=== PATIENT | male | born 1955 | race African-American/Black ===

== ENCOUNTER 2020-08-28 21:39 | Inpatient (IN) | payer OTHER ==
[~2020-08-28] VITALS: Ht 177.8 cm; Wt 109.6 kg
--- NOTE | 2020-08-28 21:53 | ED.ADGEN ---
General Adult HPI: HPI: Patient is a 64 year old male coming in for [facility] for altered mental status. Per the report he is normally GCS 15 awake and alert. Last time he was seen was at dinner at 1800 where he was acting normally. When staff went to put him to bed about 30 minutes prior to arrival they noticed he was altered and not following commands. Per nursing facility documentation he is on Eliquis for DVTs. He has a history of metabolic encephalopathy, also has hepatitis C virus. No known falls or evidence of trauma. On arrival patient is awake but not following commands, some tracking of gaze. Patient not cooperative with NIH score. Picking his arms appears resistance but no cooperative effort and exam. Code stroke activated on patient's arrival, no acute bleed or stroke CT. Discussed with neurology, Dr. Mccracken, not a TPA candidate secondary to Eliquis. Requesting CTA be done prior to admission Review of Systems: Review of Systems: Unable to obtain due to patient's mental status Current Medications: Current Medications Medications (Trade) Dose Ordered Sig/Mary Start Time Stop Time Status Last Admin Dose Admin Methylprednisolone Sodium Succinate (SOLU-Medrol 125MG VIAL) 125 mg 1X ONCE 08/28/20 23:55 08/29/20 00:12 DC Sodium Chloride 1,000 ml @ 100 mls/hr Q10H 08/28/20 22:15 08/28/20 23:04 100 MLS/HR Allergies: Allergies: Allergies Coded Allergies Type Severity Reaction Last Updated Verified Penicillins Allergy Unknown UNKNOWN 08/28/20 Yes hydrocodone Allergy Unknown UNKNOWN 08/28/20 Yes Physical Exam: PE: Constitutional: Well developed, well nourished, attentive. [] HENT: Normocephalic, atraumatic, bilateral external ears normal, nose normal. [] Eyes: PERRLA, pupils 3 mm conjunctiva normal, no discharge. [] Neck: No rigidity, supple, no stridor. [] Cardiovascular: Regular rate and rhythm, brisk cap refill [] Lungs & Thorax: Non labored symmetric respirations, no tachypnea or respiratory distress [] Abdomen: Soft, nondistended. Skin: Warm, dry, no erythema, no rash. [] Extremities: No deformities, no effort for range of motion, no lower extremity edema [] Neurologic: Alert, nonverbal. [] Current Patient Data: Labs: Laboratory Tests Test 08/28/20 21:47 08/28/20 21:54 08/29/20 00:02 08/29/20 01:13 Glucose (Fingerstick) 130 mg/dL (70-99) H White Blood Count 10.4 x10^3/uL (4.0-11.0) Red Blood Count 4.68 x10^6/uL (4.30-5.70) Hemoglobin 15.9 g/dL (13.0-17.5) Hematocrit 46.0 % (39.0-53.0) Mean Corpuscular Volume 98 fL (79-100) Mean Corpuscular Hemoglobin 34 pg (25-35) Mean Corpuscular Hemoglobin Concent 35 g/dL (31-37) Red Cell Distribution Width 15.3 % (11.5-14.5) H Platelet Count 244 x10^3/uL (140-400) Neutrophils (%) (Auto) 84 % (31-73) H Lymphocytes (%) (Auto) 8 % (24-48) L Monocytes (%) (Auto) 8 % (0-9) Eosinophils (%) (Auto) 0 % (0-3) Basophils (%) (Auto) 1 % (0-3) Neutrophils # (Auto) 8.7 x10^3/uL (1.8-7.7) H Lymphocytes # (Auto) 0.8 x10^3/uL (1.0-4.8) L Monocytes # (Auto) 0.8 x10^3/uL (0.0-1.1) Eosinophils # (Auto) 0.0 x10^3/uL (0.0-0.7) Basophils # (Auto) 0.0 x10^3/uL (0.0-0.2) Prothrombin Time 16.1 SEC (11.7-14.0) H Prothrombin Time INR 1.3 (0.8-1.1) H Activated Partial Thromboplast Time 28 SEC (24-38) Sodium Level 151 mmol/L (136-145) H Potassium Level 3.9 mmol/L (3.5-5.1) Chloride Level 112 mmol/L (98-107) H Carbon Dioxide Level 25 mmol/L (21-32) Anion Gap 14 (6-14) Blood Urea Nitrogen 36 mg/dL (8-26) H Creatinine 3.4 mg/dL (0.7-1.3) H Estimated GFR (Cockcroft-Gault) 22.0 Glucose Level 135 mg/dL (70-99) H Calcium Level 10.1 mg/dL (8.5-10.1) Troponin I Quantitative < 0.017 ng/mL (0.000-0.055) Thyroid Stimulating Hormone (TSH) 2.640 uIU/mL (0.358-3.74) O2 Saturation 96 % (92-99) Arterial Blood pH 7.39 (7.35-7.45) Arterial Blood pCO2 at Patient Temp 34 mmHg (35-46) L Arterial Blood pO2 at Patient Temp 81 mmHg (65-108) Arterial Blood HCO3 20 mmol/L (21-28) L Arterial Blood Base Excess -4 mmol/L (-3-3) L FiO2 21 Ammonia < 10 mcmol/L (11-34) L Laboratory Tests 08/28/20 21:54 Laboratory Tests 08/28/20 21:54 Vital Signs: Vital Signs Date Time Temp Pulse Resp B/P (MAP) Pulse Ox O2 Delivery O2 Flow Rate FiO2 08/29/20 02:00 86 20 126/65 (85) 100 Room Air 08/28/20 21:46 97.9 97.9 EKG: EKG: Sinus rhythm, mildly prolonged QT, no ST elevation or depression, no ectopy, normal axis. [] Heart Score: Risk Factors: Risk Factors: DM, Current or recent (<one month) smoker, HTN, HLP, family history of CAD, obesity. Risk Scores: Score 0 - 3: 2.5% MACE over next 6 weeks - Discharge Home Score 4 - 6: 20.3% MACE over next 6 weeks - Admit for Clinical Observation Score 7 - 10: 72.7% MACE over next 6 weeks - Early Invasive Strategies Radiology/Procedures: Radiology/Procedures: EXAM: AP View of the chest DATE: 08/28/2020 10:29 PM INDICATION: Reason: ams / Spl. Instructions: / History: COMPARISON: No Prior FINDINGS: The heart is not enlarged. Mediastinal and hilar contours are normal. Linear opacities right lung base likely scarring/atelectasis. Patchy opacities left lung base may represent developing consolidative process. No pleural effusion or pneumothorax. IMPRESSION: Patchy opacities left lung base may represent consolidative process such as pneumonia. CT STROKE HEAD W/O History: Reason: stroke / Spl. Instructions: / History: Comparison: None. Technique: Noncontrast CT imaging was performed of the head. Exposure: One or more of the following individualized dose reduction techniques were utilized for this examination: 1. Automated exposure control 2. Adjustment of the mA and/or kV according to patient size 3. Use of iterative reconstruction technique. Findings: No intracranial hemorrhage. No mass effect. Hypoattenuation within the bilateral thalami. Mild brain parenchymal volume loss. Extensive foci of decreased attenuation within the hemispheric white matter, most often due to chronic microvascular ischemia. Intracranial atheromatous calcifications. Mildly dilated lateral and third ventricles. No findings to suggest obstructive hydrocephalus. Imaged orbits are unremarkable. Imaged paranasal sinuses and mastoid air cells are clear. No acute calvarial fracture. Impression: 1. No acute intracranial hemorrhage. 2. Bilateral thalamic age-indeterminate infarcts. Recommend MRI to further evaluate. 3. Extensive sequelae of chronic microvascular ischemia. 4. Mildly dilated lateral third ventricles, may relate to central brain parenchymal volume loss although can be seen with normal pressure hydrocephalus in the appropriate clinical setting. [] Course & Med Decision Making: Course & Med Decision Making Pertinent Labs and Imaging studies reviewed. (See chart for details) [] Dragon Disclaimer: Cory Disclaimer: This electronic medical record was generated, in whole or in part, using a voice recognition dictation system. Departure Departure Impression: Primary Impression: AMS (altered mental status) Additional Impression: HCAP (healthcare-associated pneumonia) Disposition: 09 ADMITTED INPT THIS HOSP Admitting Physician: MUKESH Condition: GUARDED Problem Qualifiers BONNY CARMICHAEL MD Aug 28, 2020 21:53
--- NOTE | 2020-08-28 22:00 | RAD ---
CT STROKE HEAD W/O History: Reason: stroke / Spl. Instructions: / History: Comparison: None. Technique: Noncontrast CT imaging was performed of the head. Exposure: One or more of the following individualized dose reduction techniques were utilized for thi s examination: 1. Automated exposure control 2. Adjustment of the mA and/or kV according to patient size 3. Use of iterative reconstruction technique. Findings: No intracranial hemorrhage. No mass effect. Hypoattenuation within the bilateral thalami. Mild brain parenchymal volume loss. Extensive foci of decreased attenuation within the hemispheric wh ite matter, most often due to chronic microvascular ischemia. Intracranial atheromatous calcification s. Mildly dilated lateral and third ventricles. No findings to suggest obstructive hydrocephalus. Imaged orbits are unremarkable. Imaged paranasal sinuses and mastoid air cells are clear. No acute ca lvarial fracture. Impression: 1. No acute intracranial hemorrhage. 2. Bilateral thalamic age-indeterminate infarcts. Recommend MRI to further evaluate. 3. Extensive sequelae of chronic microvascular ischemia. 4. Mildly dilated lateral third ventricles, may relate to central brain parenchymal volume loss alth ough can be seen with normal pressure hydrocephalus in the appropriate clinical setting. FOR INTERNAL CODING PURPOSES Critical result: Findings discussed with Dr. Zhou at 08/28/2020 9:56 PM. RESULT CODE: (C) Electronically signed by: Shaq Arcos DO (08/28/2020 9:57 PM) [facility] [place]
[2020-08-28 22:18] LABS: BASO % 1 % (0-3); EOS % 0 % (0-3); HEMOGLOBIN 15.9 g/dL (13.0-17.5); LYMPH # 0.8 x10^3/uL (1.0-4.8); LYMPH % 8 % (24-48); MEAN CORPUSCULAR HEMOGLOBIN 34 pg (25-35); MEAN CORPUSCULAR HGB CONC 35 g/dL (31-37); MEAN CORPUSCULAR VOLUME 98 fL (79-100); MONO # 0.8 x10^3/uL (0.0-1.1); MONO % 8 % (0-9); NEUT # 8.7 x10^3/uL (1.8-7.7); NEUT % 84 % (31-73); PLATELET COUNT 244 x10^3/uL (140-400); RED BLOOD COUNT 4.68 x10^6/uL (4.30-5.70); RED CELL DISTRIBUTION WIDTH 15.3 % (11.5-14.5); WHITE BLOOD COUNT 10.4 x10^3/uL (4.0-11.0)
[2020-08-28 22:28] LABS: PROTHROMBIN TIME PATIENT 16.1 SEC (11.7-14.0)
[2020-08-28 22:32] LABS: CALCIUM 10.1 mg/dL (8.5-10.1); CREATININE 3.4 mg/dL (0.7-1.3); POTASSIUM 3.9 mmol/L (3.5-5.1)
[2020-08-28] MEDS: IV NORMAL SALINE 1000ML BAG 1,000 ML IV SCH (23:04)
--- NOTE | 2020-08-28 23:36 | RAD ---
EXAM: AP View of the chest DATE: 08/28/2020 10:29 PM INDICATION: Reason: ams / Spl. Instructions: / History: COMPARISON: No Prior FINDINGS: The heart is not enlarged. Mediastinal and hilar contours are normal. Linear opacities right lung base likely scarring/atelectasis. Patchy opacities left lung base may rep resent developing consolidative process. No pleural effusion or pneumothorax. IMPRESSION: Patchy opacities left lung base may represent consolidative process such as pneumonia. Electronically signed by: Gregorio Hector MD (08/28/2020 11:34 PM) KEVIN
[2020-08-28] MEDS ORDERED: methylPREDNISolone SOD SUCC PF 125 MG/2 ML VIAL. IV ONE (23:55)
[2020-08-29 00:22] LABS: BASE EXCESS ABG -4 mmol/L (-3-3); HCO3 ABG 20 mmol/L (21-28); PCO2 ABG 34 mmHg (35-46); PO2 ABG 81 mmHg (65-108); SAT O2 ABG 96 % (92-99)
[2020-08-29 00:29] LABS: FIO2 ABG 21
[2020-08-29] MEDS ORDERED: VANCOMYCIN 1.75 GM in IV NORMAL SALINE 500ML BAG 500 ML IV ONE (02:30)
[2020-08-29] MEDS ORDERED: CEFEPIME HCL IV Push 1 GM VIAL. IVP ONE (02:30)
--- NOTE | 2020-08-29 04:04 | EKG ---
[facility] [address] [place] [address] Test Date: 2020-08-28 Test Time: 21:50:53 Pat Name: DARREN KENT Department: Room: Gender: M Sample Coordinator: : 1955 Requested By: BONNY CARMICHAEL Order Number: [id number] Reading MD: Measurements Intervals [place] Rate: 96 P: 28 FL: 186 QRS: 75 QRSD: 112 T: 66 QT: 390 QTc: 494 Interpretive Statements SINUS RHYTHM PROLONGED QT NO SPECIFIC ECG ABNORMALITIES RI6.01 No previous ECG available for comparison
[2020-08-29 05:05] VITALS: BP 101/70
[2020-08-29 07:00] VITALS: BP 119/80
[2020-08-29] MEDS ORDERED: DARU1TAB3 PO (07:38)
[2020-08-29] MEDS ORDERED: TRAM50TA PO (07:38)
[2020-08-29] MEDS ORDERED: TELM40TA PO (07:38)
[2020-08-29] MEDS ORDERED: DOLU50TA PO (07:38)
[2020-08-29] MEDS ORDERED: COLC0.6T34 PO (07:38)
[2020-08-29] MEDS ORDERED: AMLO-187 PO (07:38)
[2020-08-29] MEDS ORDERED: TAMS0.4C97 PO (07:38)
[2020-08-29] MEDS ORDERED: BETA15CR5 TP (07:38)
[2020-08-29] MEDS ORDERED: MULT-246 PO (07:38)
[2020-08-29] MEDS ORDERED: APIX2.5T PO (07:38)
--- NOTE | 2020-08-29 08:54 | PDOC2 ---
NEUROLOGY CONSULT Date of Service DOS: DATE: 08/29/20 TIME: 08:38 Reason for Consult Reason for Consult: Altered mental status Referring Physician Referring Physician: Dr. Li Source Source: Caregiver (Dr. Olson, friend), Chart review History of Present Illness History of Present Illness The patient is a 64-year-old right-handed male admitted from long-term with altered mental status. Last known normal was 6 PM, but bu the time I spoke to Dr. Zhou, emergency room physician, last night it was 10 PM and there were no focal findings, therefore we did not consider the patient a candidate for alteplase. According to his friend, Dr. 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 He was admitted to because of declining mental status. He is HIV posit susana. Patient had several MRI studies, 2 lumbar punctures, and full evaluation including syphilis serologies, which were negative. Nonetheless, he was treated with antibiotics for syphilis and other infections, but nothing came with the work-up except for possible ventriculomegaly. A BINDING CUTTER shunt was discussed, but the doctors did not think that normal pressure hydrocephalus was an issue. Patient has never had a stroke or seizure. We are not sure if he hit his head in the fall. Past Medical History Cardiovascular: HTN, Other (DVT) CENTRAL NERVOUS SYSTEM: Other (met enceph) Hepatobiliary: Hep A/B/C (C) Psych: Other (thrombocythemia) Rheumatologic: Gout Infectious disease: HIV Renal/: Urinary Incontinence Current Medications Current Medications Current Medications Sodium Chloride 1,000 ml @ 100 mls/hr Q10H IV Last administered on 08/28/20at 23:04; Start 08/28/20 at 22:15 Methylprednisolone Sodium Succinate (SOLU-Medrol 125MG VIAL) 125 mg 1X ONCE IV ; Start 08/28/20 at 23:55; Stop 08/29/20 at 00:12; Status DC Cefepime HCl (Maxipime) 1 gm 1X ONCE IVP Last administered on 08/29/20at 02:45; Start 08/29/20 at 02:30; Stop 08/29/20 at 02:32; Status DC Vancomycin HCl 1.75 gm/Sodium Chloride 500 ml @ 250 mls/hr 1X ONCE IV Last administered on 08/29/20at 02:48; Start 08/29/20 at 02:30; Stop 08/29/20 at 04:29; Status DC Active Scripts Active Reported Multi-Vitamin Daily (Multivitamin) 1 Each Tablet 1 Tab PO DAILY 30 Days Tramadol Hcl 50 Mg Tablet 50 Mg PO Q6HRS PRN Tivicay (Dolutegravir Sodium) 50 Mg Tablet 1 Tab PO DAILY 30 Days Micardis (Telmisartan) 40 Mg Tablet 1 Tab PO DAILY Flomax (Tamsulosin Hcl) 0.4 Mg Cap.er.24h 1 Cap PO DAILY Symtuza [id number] mg Tab (Darunavir/Cob/Emtri/Tenof Alaf) 1 Each Tablet 1 Each PO DAILY Colcrys (Colchicine) 0.6 Mg Tablet 1 Tab PO DAILY 30 Days Betamethasone Dipropionate 15 Gm Cream..g. 1 Antoine TP BID Eliquis (Apixaban) 2.5 Mg Tablet 2.5 Mg PO BID Amlodipine Besylate 10 Mg Tablet 10 Mg PO DAILY Allergies Allergies: Coded Allergies: Penicillins (Verified Allergy, Unknown, UNKNOWN, 08/28/20) hydrocodone (Verified Allergy, Unknown, UNKNOWN, 08/28/20) ROS Review of System Negative for fever, chills, weight loss, shortness of breath, chest pain, indige stion, hematochezia, melena, and dysuria. Full 14-point review of systems is negative. Physical Exam Physical Examination General: Well-developed, well-nourished black male in no acute distress HEENT: Normocephalic andatraumatic. Temporal arteriespulsatile and nontender. Neck: Supple without bruit, no meningismus Musculoskeletal: Stability:see neurologic. Gait exam:see neurologic. Tone:see neurologic.Strength:see neurologic. Neurological: Mental Status:Eyes open slightly to voice, nonverbal, doesn't follow commands. Cranial Nerves:Pupils equal and reactive to light, extraocular movements areintact, visual hough are full to confrontation. Facial sensation is normal. There is no facial asymmetry. Vestibulo-ocular reflex is intact. Palate elevates and tongue protrudes in midline. All other cranial related problems are negative except as mentioned before.Reflexes:2+ and symmetric with flexor plantar responses. Motor:moves all extremities, normal tone and bulk. Coordination and gait:Not cooperative. Sensory:not cooperative. Vitals VITALS Vital Signs Date Time Temp Pulse Resp B/P (MAP) Pulse Ox O2 Delivery O2 Flow Rate FiO2 08/29/20 07:00 97.2 80 16 119/80 (93) 97 Room Air 97.2 Labs Labs Laboratory Tests Test 08/28/20 21:47 08/28/20 21:54 08/29/20 00:02 08/29/20 01:13 Glucose (Fingerstick) 130 mg/dL (70-99) White Blood Count 10.4 x10^3/uL (4.0-11.0) Red Blood Count 4.68 x10^6/uL (4.30-5.70) Hemoglobin 15.9 g/dL (13.0-17.5) Hematocrit 46.0 % (39.0-53.0) Mean Corpuscular Volume 98 fL (79-100) Mean Corpuscular Hemoglobin 34 pg (25-35) Mean Corpuscular Hemoglobin Concent 35 g/dL (31-37) Red Cell Distribution Width 15.3 % (11.5-14.5) Platelet Count 244 x10^3/uL (140-400) Neutrophils (%) (Auto) 84 % (31-73) Lymphocytes (%) (Auto) 8 % (24-48) Monocytes (%) (Auto) 8 % (0-9) Eosinophils (%) (Auto) 0 % (0-3) Basophils (%) (Auto) 1 % (0-3) Neutrophils # (Auto) 8.7 x10^3/uL (1.8-7.7) Lymphocytes # (Auto) 0.8 x10^3/uL (1.0-4.8) Monocytes # (Auto) 0.8 x10^3/uL (0.0-1.1) Eosinophils # (Auto) 0.0 x10^3/uL (0.0-0.7) Basophils # (Auto) 0.0 x10^3/uL (0.0-0.2) Prothrombin Time 16.1 SEC (11.7-14.0) Prothromb Time International Ratio 1.3 (0.8-1.1) Activated Partial Thromboplast Time 28 SEC (24-38) Sodium Level 151 mmol/L (136-145) Potassium Level 3.9 mmol/L (3.5-5.1) Chloride Level 112 mmol/L (98-107) Carbon Dioxide Level 25 mmol/L (21-32) Anion Gap 14 (6-14) Blood Urea Nitrogen 36 mg/dL (8-26) Creatinine 3.4 mg/dL (0.7-1.3) Estimated GFR (Cockcroft-Gault) 22.0 Glucose Level 135 mg/dL (70-99) Calcium Level 10.1 mg/dL (8.5-10.1) Troponin I Quantitative < 0.017 ng/mL (0.000-0.055) Thyroid Stimulating Hormone (TSH) 2.640 uIU/mL (0.358-3.74) O2 Saturation 96 % (92-99) Arterial Blood pH 7.39 (7.35-7.45) Arterial Blood pCO2 at Patient Temp 34 mmHg (35-46) Arterial Blood pO2 at Patient Temp 81 mmHg (65-108) Arterial Blood HCO3 20 mmol/L (21-28) Arterial Blood Base Excess -4 mmol/L (-3-3) FiO2 21 Ammonia < 10 mcmol/L (11-34) Laboratory Tests Test 08/28/20 21:47 08/28/20 21:54 08/29/20 00:02 08/29/20 01:13 Glucose (Fingerstick) 130 mg/dL (70-99) White Blood Count 10.4 x10^3/uL (4.0-11.0) Red Blood Count 4.68 x10^6/uL (4.30-5.70) Hemoglobin 15.9 g/dL (13.0-17.5) Hematocrit 46.0 % (39.0-53.0) Mean Corpuscular Volume 98 fL (79-100) Mean Corpuscular Hemoglobin 34 pg (25-35) Mean Corpuscular Hemoglobin Concent 35 g/dL (31-37) Red Cell Distribution Width 15.3 % (11.5-14.5) Platelet Count 244 x10^3/uL (140-400) Neutrophils (%) (Auto) 84 % (31-73) Lymphocytes (%) (Auto) 8 % (24-48) Monocytes (%) (Auto) 8 % (0-9) Eosinophils (%) (Auto) 0 % (0-3) Basophils (%) (Auto) 1 % (0-3) Neutrophils # (Auto) 8.7 x10^3/uL (1.8-7.7) Lymphocytes # (Auto) 0.8 x10^3/uL (1.0-4.8) Monocytes # (Auto) 0.8 x10^3/uL (0.0-1.1) Eosinophils # (Auto) 0.0 x10^3/uL (0.0-0.7) Basophils # (Auto) 0.0 x10^3/uL (0.0-0.2) Prothrombin Time 16.1 SEC (11.7-14.0) Prothromb Time International Ratio 1.3 (0.8-1.1) Activated Partial Thromboplast Time 28 SEC (24-38) Sodium Level 151 mmol/L (136-145) Potassium Level 3.9 mmol/L (3.5-5.1) Chloride Level 112 mmol/L (98-107) Carbon Dioxide Level 25 mmol/L (21-32) Anion Gap 14 (6-14) Blood Urea Nitrogen 36 mg/dL (8-26) Creatinine 3.4 mg/dL (0.7-1.3) Estimated GFR (Cockcroft-Gault) 22.0 Glucose Level 135 mg/dL (70-99) Calcium Level 10.1 mg/dL (8.5-10.1) Troponin I Quantitative < 0.017 ng/mL (0.000-0.055) Thyroid Stimulating Hormone (TSH) 2.640 uIU/mL (0.358-3.74) O2 Saturation 96 % (92-99) Arterial Blood pH 7.39 (7.35-7.45) Arterial Blood pCO2 at Patient Temp 34 mmHg (35-46) Arterial Blood pO2 at Patient Temp 81 mmHg (65-108) Arterial Blood HCO3 20 mmol/L (21-28) Arterial Blood Base Excess -4 mmol/L (-3-3) FiO2 21 Ammonia < 10 mcmol/L (11-34) Images Images CT STROKE HEAD W/O History: Reason: stroke / Spl. Instructions: / History: Comparison: None. Technique: Noncontrast CT imaging was performed of the head. Exposure: One or more of the following individualized dose reduction techniques were utilized for this examination: 1. Automated exposure control 2. Adjustment of the mA and/or kV according to patient size 3. Use of iterative reconstruction technique. Findings: No intracranial hemorrhage. No mass effect. Hypoattenuation within the bilateral thalami. Mild brain parenchymal volume loss. Extensive foci of decreased attenuation within the hemispheric white matter, most often due to chronic microvascular ischemia. Intracranial atheromatous calcifications. Mildly dilated lateral and third ventricles. No findings to suggest obstructive hydrocephalus. Imaged orbits are unremarkable. Imaged paranasal sinuses and mastoid air cells are clear. No acute calvarial fracture. Impression: 1. No acute intracranial hemorrhage. 2. Bilateral thalamic age-indeterminate infarcts. Recommend MRI to further evaluate. 3. Extensive sequelae of chronic microvascular ischemia. 4. Mildly dilated lateral third ventricles, may relate to central brain parenchymal volume loss although can be seen with normal pressure hydrocephalus in the appropriate clinical setting. 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 Note elevated creatinine Recommendations: MRI of the brain Electroencephalogram Nephrology consult I will look over the [facility] work-up on-line with verbal permission from Dr. Miranda Thank you for letting me help with the patient's care. JOSE CARLOS JOHNSON MD Aug 29, 2020 08:54
--- NOTE | 2020-08-29 09:01 | PDOC1 ---
History and Physical Date of Admission Date of Admission DATE: 08/29/20 TIME: 08:57 Identification/Chief Complaint Chief Complaint AMS, CODE STROKE IN ER History of Present Illness History of Present Illness seen in er with AMS, 64 year old male coming in for senior care for altered mental status. Per the report he is normally GCS 15 awake and alert. Last time he was seen was at dinner at 1800 where he was acting normally. When staff went to put him to bed about 30 minutes prior to arrival they noticed he was altered and not following commands. Per nursing facility documentation he is on Eliquis for DVTs. He has a history of metabolic encephalopathy, also has hepatitis C virus. No known falls or evidence of trauma. On arrival patient is awake but not following commands, some tracking of gaze. Patient not cooperative with NIH score. Picking his arms appears resistance but no cooperative effort and exam. cr elevated at 3 Code stroke activated on patient's arrival, no acute bleed or stroke CT. Discussed with neurology, Dr. Mccracken, not a TPA candidate secondary to Eliquis. Requesting CTA be done prior to admission HIV positive. Patient had several MRI studies, 2 lumbar punctures, and full evaluation including syphilis serologies, which were negative. at [facility] he was treated with antibiotics for syphilis and other infections, but nothing came with the work-up except for possible ventriculomegaly. A SWIMMING COACH shunt was discussed, but the doctors did not think that normal pressure hydrocephalus was an issue. Review of Systems: Review of Systems: Unable to obtain due to patient's mental status Past Medical History Cardiovascular: HTN, Hyperlipidemia, Other (DVT) CENTRAL NERVOUS SYSTEM: Other (met enceph) Hepatobiliary: Hep A/B/C (C) Psych: Depression, Other (thrombocythemia) Rheumatologic: Gout Infectious disease: HIV Renal/: Urinary Incontinence Family History Family History: Hypertension Social History Smoke: No ALCOHOL: none Drugs: None Current Problem List Problem List Problems Medical Problems: (1) AMS (altered mental status) Status: Acute (2) HCAP (healthcare-associated pneumonia) Status: Acute Current Medications Current Medications Current Medications Sodium Chloride 1,000 ml @ 100 mls/hr Q10H IV Last administered on 08/28/20at 23:04; Start 08/28/20 at 22:15 Methylprednisolone Sodium Succinate (SOLU-Medrol 125MG VIAL) 125 mg 1X ONCE IV ; Start 08/28/20 at 23:55; Stop 08/29/20 at 00:12; Status DC Cefepime HCl (Maxipime) 1 gm 1X ONCE IVP Last administered on 08/29/20at 02:45; Start 08/29/20 at 02:30; Stop 08/29/20 at 02:32; Status DC Vancomycin HCl 1.75 gm/Sodium Chloride 500 ml @ 250 mls/hr 1X ONCE IV Last administered on 08/29/20at 02:48; Start 08/29/20 at 02:30; Stop 08/29/20 at 04:29; Status DC Active Scripts Active Reported Multi-Vitamin Daily (Multivitamin) 1 Each Tablet 1 Tab PO DAILY 30 Days Tramadol Hcl 50 Mg Tablet 50 Mg PO Q6HRS PRN Tivicay (Dolutegravir Sodium) 50 Mg Tablet 1 Tab PO DAILY 30 Days Micardis (Telmisartan) 40 Mg Tablet 1 Tab PO DAILY Flomax (Tamsulosin Hcl) 0.4 Mg Cap.er.24h 1 Cap PO DAILY Symtuza [id number] mg Tab (Darunavir/Cob/Emtri/Tenof Alaf) 1 Each Tablet 1 Each PO DAILY Colcrys (Colchicine) 0.6 Mg Tablet 1 Tab PO DAILY 30 Days Betamethasone Dipropionate 15 Gm Cream..g. 1 Antoine TP BID Eliquis (Apixaban) 2.5 Mg Tablet 2.5 Mg PO BID Amlodipine Besylate 10 Mg Tablet 10 Mg PO DAILY Allergies Allergies: Coded Allergies: Penicillins (Verified Allergy, Unknown, UNKNOWN, 08/28/20) hydrocodone (Verified Allergy, Unknown, UNKNOWN, 08/28/20) ROS Review of System unable to participate Hematological and Lymphatic: No: Bleeding Problems, Blood Clots, Blood Transfusions, Brusing, Night Sweats, Pallor, Swollen Lymph Nodes, Other Respiratory: YES: Shortness of breath Gastrointestinal: No Nausea, No Vomiting, No Abdominal Pain, No Diarrhea, No Constipation, No Melena, No Hematochezia, No Other Neurological: Yes Confusion Physical Exam Physical Exam HENT: Normocephalic, atraumatic, bilateral external ears normal, nose normal. [] Eyes: PERRLA, pupils 3 mm conjunctiva normal, no discharge. [] Neck: No rigidity, supple, no stridor. [] Cardiovascular: Regular rate and rhythm, brisk cap refill [] Lungs & Thorax: Non labored symmetric respirations, no tachypnea or respiratory distress [] Abdomen: Soft, nondistended. Skin: Warm, dry, no erythema, no rash. [] Extremities: No deformities, no effort for range of motion, no lower extremity edema [] Neurologic: Alert, nonverbal. [] General: Cooperative, No acute distress HEENT: Atraumatic Lungs: Normal air movement Breasts: Not examined Abdomen: Soft Rectal Exam: not examined Extremities: No cyanosis Vitals Vitals Vital Signs Date Time Temp Pulse Resp B/P (MAP) Pulse Ox O2 Delivery O2 Flow Rate FiO2 08/29/20 07:00 97.2 80 16 119/80 (93) 97 Room Air 97.2 Labs Labs Laboratory Tests Test 08/28/20 21:47 08/28/20 21:54 08/29/20 00:02 08/29/20 01:13 Glucose (Fingerstick) 130 mg/dL (70-99) White Blood Count 10.4 x10^3/uL (4.0-11.0) Red Blood Count 4.68 x10^6/uL (4.30-5.70) Hemoglobin 15.9 g/dL (13.0-17.5) Hematocrit 46.0 % (39.0-53.0) Mean Corpuscular Volume 98 fL (79-100) Mean Corpuscular Hemoglobin 34 pg (25-35) Mean Corpuscular Hemoglobin Concent 35 g/dL (31-37) Red Cell Distribution Width 15.3 % (11.5-14.5) Platelet Count 244 x10^3/uL (140-400) Neutrophils (%) (Auto) 84 % (31-73) Lymphocytes (%) (Auto) 8 % (24-48) Monocytes (%) (Auto) 8 % (0-9) Eosinophils (%) (Auto) 0 % (0-3) Basophils (%) (Auto) 1 % (0-3) Neutrophils # (Auto) 8.7 x10^3/uL (1.8-7.7) Lymphocytes # (Auto) 0.8 x10^3/uL (1.0-4.8) Monocytes # (Auto) 0.8 x10^3/uL (0.0-1.1) Eosinophils # (Auto) 0.0 x10^3/uL (0.0-0.7) Basophils # (Auto) 0.0 x10^3/uL (0.0-0.2) Prothrombin Time 16.1 SEC (11.7-14.0) Prothromb Time International Ratio 1.3 (0.8-1.1) Activated Partial Thromboplast Time 28 SEC (24-38) Sodium Level 151 mmol/L (136-145) Potassium Level 3.9 mmol/L (3.5-5.1) Chloride Level 112 mmol/L (98-107) Carbon Dioxide Level 25 mmol/L (21-32) Anion Gap 14 (6-14) Blood Urea Nitrogen 36 mg/dL (8-26) Creatinine 3.4 mg/dL (0.7-1.3) Estimated GFR (Cockcroft-Gault) 22.0 Glucose Level 135 mg/dL (70-99) Calcium Level 10.1 mg/dL (8.5-10.1) Troponin I Quantitative < 0.017 ng/mL (0.000-0.055) Thyroid Stimulating Hormone (TSH) 2.640 uIU/mL (0.358-3.74) O2 Saturation 96 % (92-99) Arterial Blood pH 7.39 (7.35-7.45) Arterial Blood pCO2 at Patient Temp 34 mmHg (35-46) Arterial Blood pO2 at Patient Temp 81 mmHg (65-108) Arterial Blood HCO3 20 mmol/L (21-28) Arterial Blood Base Excess -4 mmol/L (-3-3) FiO2 21 Ammonia < 10 mcmol/L (11-34) Laboratory Tests Test 08/28/20 21:47 08/28/20 21:54 08/29/20 00:02 08/29/20 01:13 Glucose (Fingerstick) 130 mg/dL (70-99) White Blood Count 10.4 x10^3/uL (4.0-11.0) Red Blood Count 4.68 x10^6/uL (4.30-5.70) Hemoglobin 15.9 g/dL (13.0-17.5) Hematocrit 46.0 % (39.0-53.0) Mean Corpuscular Volume 98 fL (79-100) Mean Corpuscular Hemoglobin 34 pg (25-35) Mean Corpuscular Hemoglobin Concent 35 g/dL (31-37) Red Cell Distribution Width 15.3 % (11.5-14.5) Platelet Count 244 x10^3/uL (140-400) Neutrophils (%) (Auto) 84 % (31-73) Lymphocytes (%) (Auto) 8 % (24-48) Monocytes (%) (Auto) 8 % (0-9) Eosinophils (%) (Auto) 0 % (0-3) Basophils (%) (Auto) 1 % (0-3) Neutrophils # (Auto) 8.7 x10^3/uL (1.8-7.7) Lymphocytes # (Auto) 0.8 x10^3/uL (1.0-4.8) Monocytes # (Auto) 0.8 x10^3/uL (0.0-1.1) Eosinophils # (Auto) 0.0 x10^3/uL (0.0-0.7) Basophils # (Auto) 0.0 x10^3/uL (0.0-0.2) Prothrombin Time 16.1 SEC (11.7-14.0) Prothromb Time International Ratio 1.3 (0.8-1.1) Activated Partial Thromboplast Time 28 SEC (24-38) Sodium Level 151 mmol/L (136-145) Potassium Level 3.9 mmol/L (3.5-5.1) Chloride Level 112 mmol/L (98-107) Carbon Dioxide Level 25 mmol/L (21-32) Anion Gap 14 (6-14) Blood Urea Nitrogen 36 mg/dL (8-26) Creatinine 3.4 mg/dL (0.7-1.3) Estimated GFR (Cockcroft-Gault) 22.0 Glucose Level 135 mg/dL (70-99) Calcium Level 10.1 mg/dL (8.5-10.1) Troponin I Quantitative < 0.017 ng/mL (0.000-0.055) Thyroid Stimulating Hormone (TSH) 2.640 uIU/mL (0.358-3.74) O2 Saturation 96 % (92-99) Arterial Blood pH 7.39 (7.35-7.45) Arterial Blood pCO2 at Patient Temp 34 mmHg (35-46) Arterial Blood pO2 at Patient Temp 81 mmHg (65-108) Arterial Blood HCO3 20 mmol/L (21-28) Arterial Blood Base Excess -4 mmol/L (-3-3) FiO2 21 Ammonia < 10 mcmol/L (11-34) Images Images Signed PATIENT: DARREN KENT ACCOUNT: [id number] : 1955 LOCATION: ER AGE: 64 SEX: M EXAM STATUS: PRE ER ORD. PHYSICIAN: BONNY CARMICHAEL MD REASON: stroke PROCEDURE: CT CODE STROKE HEAD WO CT STROKE HEAD W/O History: Reason: stroke / Spl. Instructions: / History: Comparison: None. Technique: Noncontrast CT imaging was performed of the head. Exposure: One or more of the following individualized dose reduction techniques were utilized for this examination: 1. Automated exposure control 2. Adjustment of the mA and/or kV according to patient size 3. Use of iterative reconstruction technique. Findings: No intracranial hemorrhage. No mass effect. Hypoattenuation within the bilateral thalami. Mild brain parenchymal volume loss. Extensive foci of decreased attenuation within the hemispheric white matter, most often due to chronic microvascular ischemia. Intracranial atheromatous calcifications. Mildly dilated lateral and third ventricles. No findings to suggest obstructive hydrocephalus. Imaged orbits are unremarkable. Imaged paranasal sinuses and mastoid air cells are clear. No acute calvarial fracture. Impression: 1. No acute intracranial hemorrhage. 2. Bilateral thalamic age-indeterminate infarcts. Recommend MRI to further evaluate. 3. Extensive sequelae of chronic microvascular ischemia. 4. Mildly dilated lateral third ventricles, may relate to central brain parenchymal volume loss although can be seen with normal pressure hydrocephalus in the appropriate clinical setting. FOR INTERNAL CODING PURPOSES Critical result: Findings discussed with Dr. Carmichael at 08/28/2020 9:56 PM. RESULT CODE: (C) Electronically signed by: Shaq Arcos DO (08/28/2020 9:57 PM) [facility] VTE Prophylaxis Ordered VTE Prophylaxis Devices: Yes VTE Pharmacological Prophylaxi: Yes Assessment/Plan Assessment/Plan Impression: 1. No acute intracranial hemorrhage. 2. Bilateral thalamic age-indeterminate infarcts. PLAN MRI to further evaluate. 3. Extensive sequelae of chronic microvascular ischemia. 4. Mildly dilated lateral third ventricles, may relate to central brain parenchymal volume loss POSSIBLE normal pressure hydrocephalus 5. Patchy opacities left lung base may represent consolidative process such as pneumonia., aspiration risk 6. WANG PLAN ADMIT MRI HEAD NEUROLOGY CONSULT emperic iv antibiotics dvt prophylaxis NEPHROLOGY CONSULT 75 min pt exam, chart review, > 50% of time spent with exam, chart review, pt care coordination Justifications for Admission Other Justification EEV DOWNEY MD Aug 29, 2020 09:01
[2020-08-29] MEDS: IV NORMAL SALINE 1000ML BAG 1,000 ML IV SCH ×2 (09:08→18:08)
[2020-08-29 11:00] VITALS: BP 111/84
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
[2020-08-29] MEDS ORDERED: 0.9 % SODIUM CHLORIDE 10 ML DISP.SYRIN. IV PRN (14:45)
[2020-08-29] MEDS ORDERED: ONDANSETRON PF 4 MG/2 ML VIAL. IV PRN (14:45)
[2020-08-29] MEDS ORDERED: SODIUM PHOSPHATES 19/7GM 133 ML ENEMA. PR PRN (14:45)
[2020-08-29] MEDS ORDERED: ACETAMINOPHEN 650 MG SUPP.RECT. PR PRN (14:45)
[2020-08-29] MEDS ORDERED: IV NORMAL SALINE 1000ML BAG 1,000 ML IV SCH (14:45)
[2020-08-29] MEDS ORDERED: ALBUTEROL SULFATE 2.5 MG/3 ML NEBU. NEB PRN (14:45)
[2020-08-29] MEDS ORDERED: guaiFENesin ORAL 200 MG/10 ML LIQUID. PO PRN (14:45)
[2020-08-29 15:00] VITALS: BP 118/72
--- NOTE | 2020-08-29 16:46 | RAD ---
ADDENDUM #1 Addendum: Unsuccessful attempt to reach patients nurse at the above mentioned time. End of Addendum. Electronically signed by: Eliane Palacio MD (08/29/2020 4:49 PM) [id number] ORIGINAL REPORT EXAMINATION: Magnetic resonance imaging (MRI) of the brain and brainstem without contrast 08/29/2020 2 :49 PM HISTORY: Altered mental status, HIV-positive TECHNIQUE: Multiplanar multi-weighted MRI of the brain and brainstem was performed without intravenou s contrast using the general brain protocol. COMPARISON: None available. FINDINGS: The scalp and calvarium are normal. The superior sagittal sinus demonstrates normal venous flow. The corpus callosum is normal in shape and signal intensity. The posterior fossa is unremarkable. The p ituitary and sella are normal. The brainstem and craniocervical junction are unremarkable. Foci of diffusion signal hyperintensity are identified in the left centrum semiovale and left blake radiata posteriorly which may represent a infarcts. Additional focus of susceptibility artifact is id entified along the right occipital horn periventricular white matter. Scattered susceptibility artifa ct is identified throughout the brain parenchyma numbering at least 10 suggestive of areas of microhe morrhage or tiny cavernoma as involving the bifrontal lobes, bitemporal lobes, medial left occipital lobe and left thalamus. Ventricles, sulci and basal cisterns are prominent compatible with moderate t o advanced generalized cerebral volume loss. There are T2/FLAIR signal hyperintense foci in the angie, periventricular and subcortical white matter with areas of confluence most suggestive of advanced ch ronic small vessel ischemic changes. Moderate hippocampal volume loss. The paranasal sinuses are normal. The visualized portions of the mastoids are unremarkable. The orbi ts appear normal. Normal flow voids are demonstrated in the carotid arteries and basilar artery. IMPRESSION: 1. Foci of diffusion signal hyperintensity involving the left blake radiata, left centrum semiovale and right occipital lobe suggests acute lacunar infarcts. There is mild associated cytotoxic edema wi thout mass effect or hemorrhage. 2. Foci susceptibility artifact scattered throughout the brain parenchyma suggests microhemorrhages v ersus tiny cavernoma. 3. Moderate to advanced generalized cerebral volume loss. Moderate bilateral hippocampal volume loss. 4. There are T2/FLAIR signal hyperintense foci in the angie, periventricular and subcortical white mat ter with areas of confluence most suggestive of advanced chronic small vessel ischemic changes. Degre e of white matter changes are nonspecific and progressive multifocal leukoencephalopathy remains a di fferential consideration. FOR INTERNAL CODING PURPOSES Critical result: Findings discussed with Delores, the patient's nurse, at 08/29/2020 4:41 PM. RESULT CODE: (C) Electronically signed by: Eliane Palacio MD (08/29/2020 4:44 PM) [id number]
--- NOTE | 2020-08-29 17:51 | PDOC2 ---
CONSULT Date of Consult Date of Consult DATE: 08/29/20 TIME: 17:45 Reason for Consult Reason for Consult: WANG Referring Physician Referring Physician: SHAYAN Identification/Chief Complaint Chief Complaint CONFUSION Source Source: Chart review History of Present Illness Reason for Visit: THIS IS A 64 YR OLD WITH CONFUSION. PT FELT TO HAVE A CVA AND NEUROLOGY EVALUATION ONGOING. CR OF 3.4. NO LABS AVAILABLE TO KNOW IF HE HAS ANY CKD. SUSPECT HE HAS CKD. NO NEPHROTOXINS ON HEMODYNAMIC INSTABILITY NOTED. NO OTHER REPORTED HX. Past Medical History Cardiovascular: HTN, Hyperlipidemia, Other (DVT) CENTRAL NERVOUS SYSTEM: Other (met enceph) Hepatobiliary: Hep A/B/C (C) Psych: Depression, Other (thrombocythemia) Rheumatologic: Gout Infectious disease: HIV Renal/: No pertinent hx, Benign prostatic enlarg., Urinary Incontinence Past Surgical History Past Surgical History UNKNOWN Family History Family History: Hypertension Social History No ALCOHOL: none Drugs: None Lives: [place]-Way Current Problem List Problem List Problems Medical Problems: (1) AMS (altered mental status) Status: Acute (2) HCAP (healthcare-associated pneumonia) Status: Acute Current Medications Current Medications Current Medications Sodium Chloride 1,000 ml @ 100 mls/hr Q10H IV Last administered on 08/29/20at 09:08; Start 08/28/20 at 22:15 Methylprednisolone Sodium Succinate (SOLU-Medrol 125MG VIAL) 125 mg 1X ONCE IV ; Start 08/28/20 at 23:55; Stop 08/29/20 at 00:12; Status DC Cefepime HCl (Maxipime) 1 gm 1X ONCE IVP Last administered on 08/29/20at 02:45; Start 08/29/20 at 02:30; Stop 08/29/20 at 02:32; Status DC Vancomycin HCl 1.75 gm/Sodium Chloride 500 ml @ 250 mls/hr 1X ONCE IV Last administered on 08/29/20at 02:48; Start 08/29/20 at 02:30; Stop 08/29/20 at 04:29; Status DC Cefepime HCl (Maxipime) 1 gm Q12HR IVP ; Start 08/29/20 at 21:00 Sodium Chloride (Normal Saline Flush) 3 ml QSHIFT PRN IV AFTER MEDS AND BLOOD DRAWS; Start 08/29/20 at 14:45 Sodium Chloride 1,000 ml @ 100 mls/hr Q10H IV ; Start 08/29/20 at 14:45 Ondansetron HCl (Zofran) 4 mg PRN Q4HRS PRN IV NAUSEA/VOMITING; Start 08/29/20 at 14:45 Acetaminophen (Tylenol Supp) 650 mg PRN Q4HRS PRN GA TEMP OVER 100.4F OR MILD PAIN; Start 08/29/20 at 14:45 Sodium Monofluorophosphate (Fleet Adult) 133 ml PRN DAILY PRN GA CONSTIPATION; Start 08/29/20 at 14:45 Albuterol Sulfate (Ventolin Neb Soln) 2.5 mg PRN Q4HRS PRN NEB SHORTNESS OF BREATH; Start 08/29/20 at 14:45 Guaifenesin (Robitussin) 200 mg PRN Q4HRS PRN PO COUGH; Start 08/29/20 at 14:45 Active Scripts Active Reported Multi-Vitamin Daily (Multivitamin) 1 Each Tablet 1 Tab PO DAILY 30 Days Tramadol Hcl 50 Mg Tablet 50 Mg PO Q6HRS PRN Tivicay (Dolutegravir Sodium) 50 Mg Tablet 1 Tab PO DAILY 30 Days Micardis (Telmisartan) 40 Mg Tablet 1 Tab PO DAILY Flomax (Tamsulosin Hcl) 0.4 Mg Cap.er.24h 1 Cap PO DAILY Symtuza [id number] mg Tab (Darunavir/Cob/Emtri/Tenof Alaf) 1 Each Tablet 1 Each PO DAILY Colcrys (Colchicine) 0.6 Mg Tablet 1 Tab PO DAILY 30 Days Betamethasone Dipropionate 15 Gm Cream..g. 1 Antoine TP BID Eliquis (Apixaban) 2.5 Mg Tablet 2.5 Mg PO BID Amlodipine Besylate 10 Mg Tablet 10 Mg PO DAILY Allergies Allergies: Coded Allergies: Penicillins (Verified Allergy, Unknown, UNKNOWN, 08/28/20) hydrocodone (Verified Allergy, Unknown, UNKNOWN, 08/28/20) ROS Review of System UNABLE TO OBTAIN. Physical Exam General: Cooperative, No acute distress HEENT: Atraumatic, PERRLA, Other (DRY MUCOSA) Lungs: Clear to auscultation Heart: Regular rate Abdomen: Normal bowel sounds, Soft, No tenderness Skin: No breakdown Neuro: Other (CONFUSED) Psych/Mental Status: Other (UNABLE TO ASSESS) MUSCULOSKELETAL: No joint tenderness, No swelling Vitals VITALS Vital Signs Date Time Temp Pulse Resp B/P (MAP) Pulse Ox O2 Delivery O2 Flow Rate FiO2 08/29/20 11:00 98.1 81 16 111/84 (93) 100 Room Air 98.1 Labs Labs Laboratory Tests Test 08/28/20 21:47 08/28/20 21:54 08/29/20 00:02 08/29/20 01:13 Glucose (Fingerstick) 130 mg/dL (70-99) White Blood Count 10.4 x10^3/uL (4.0-11.0) Red Blood Count 4.68 x10^6/uL (4.30-5.70) Hemoglobin 15.9 g/dL (13.0-17.5) Hematocrit 46.0 % (39.0-53.0) Mean Corpuscular Volume 98 fL (79-100) Mean Corpuscular Hemoglobin 34 pg (25-35) Mean Corpuscular Hemoglobin Concent 35 g/dL (31-37) Red Cell Distribution Width 15.3 % (11.5-14.5) Platelet Count 244 x10^3/uL (140-400) Neutrophils (%) (Auto) 84 % (31-73) Lymphocytes (%) (Auto) 8 % (24-48) Monocytes (%) (Auto) 8 % (0-9) Eosinophils (%) (Auto) 0 % (0-3) Basophils (%) (Auto) 1 % (0-3) Neutrophils # (Auto) 8.7 x10^3/uL (1.8-7.7) Lymphocytes # (Auto) 0.8 x10^3/uL (1.0-4.8) Monocytes # (Auto) 0.8 x10^3/uL (0.0-1.1) Eosinophils # (Auto) 0.0 x10^3/uL (0.0-0.7) Basophils # (Auto) 0.0 x10^3/uL (0.0-0.2) Prothrombin Time 16.1 SEC (11.7-14.0) Prothromb Time International Ratio 1.3 (0.8-1.1) Activated Partial Thromboplast Time 28 SEC (24-38) Sodium Level 151 mmol/L (136-145) Potassium Level 3.9 mmol/L (3.5-5.1) Chloride Level 112 mmol/L (98-107) Carbon Dioxide Level 25 mmol/L (21-32) Anion Gap 14 (6-14) Blood Urea Nitrogen 36 mg/dL (8-26) Creatinine 3.4 mg/dL (0.7-1.3) Estimated GFR (Cockcroft-Gault) 22.0 Glucose Level 135 mg/dL (70-99) Calcium Level 10.1 mg/dL (8.5-10.1) Troponin I Quantitative < 0.017 ng/mL (0.000-0.055) Thyroid Stimulating Hormone (TSH) 2.640 uIU/mL (0.358-3.74) O2 Saturation 96 % (92-99) Arterial Blood pH 7.39 (7.35-7.45) Arterial Blood pCO2 at Patient Temp 34 mmHg (35-46) Arterial Blood pO2 at Patient Temp 81 mmHg (65-108) Arterial Blood HCO3 20 mmol/L (21-28) Arterial Blood Base Excess -4 mmol/L (-3-3) FiO2 21 Ammonia < 10 mcmol/L (11-34) Laboratory Tests Test 08/28/20 21:47 08/28/20 21:54 08/29/20 00:02 08/29/20 01:13 Glucose (Fingerstick) 130 mg/dL (70-99) White Blood Count 10.4 x10^3/uL (4.0-11.0) Red Blood Count 4.68 x10^6/uL (4.30-5.70) Hemoglobin 15.9 g/dL (13.0-17.5) Hematocrit 46.0 % (39.0-53.0) Mean Corpuscular Volume 98 fL (79-100) Mean Corpuscular Hemoglobin 34 pg (25-35) Mean Corpuscular Hemoglobin Concent 35 g/dL (31-37) Red Cell Distribution Width 15.3 % (11.5-14.5) Platelet Count 244 x10^3/uL (140-400) Neutrophils (%) (Auto) 84 % (31-73) Lymphocytes (%) (Auto) 8 % (24-48) Monocytes (%) (Auto) 8 % (0-9) Eosinophils (%) (Auto) 0 % (0-3) Basophils (%) (Auto) 1 % (0-3) Neutrophils # (Auto) 8.7 x10^3/uL (1.8-7.7) Lymphocytes # (Auto) 0.8 x10^3/uL (1.0-4.8) Monocytes # (Auto) 0.8 x10^3/uL (0.0-1.1) Eosinophils # (Auto) 0.0 x10^3/uL (0.0-0.7) Basophils # (Auto) 0.0 x10^3/uL (0.0-0.2) Prothrombin Time 16.1 SEC (11.7-14.0) Prothromb Time International Ratio 1.3 (0.8-1.1) Activated Partial Thromboplast Time 28 SEC (24-38) Sodium Level 151 mmol/L (136-145) Potassium Level 3.9 mmol/L (3.5-5.1) Chloride Level 112 mmol/L (98-107) Carbon Dioxide Level 25 mmol/L (21-32) Anion Gap 14 (6-14) Blood Urea Nitrogen 36 mg/dL (8-26) Creatinine 3.4 mg/dL (0.7-1.3) Estimated GFR (Cockcroft-Gault) 22.0 Glucose Level 135 mg/dL (70-99) Calcium Level 10.1 mg/dL (8.5-10.1) Troponin I Quantitative < 0.017 ng/mL (0.000-0.055) Thyroid Stimulating Hormone (TSH) 2.640 uIU/mL (0.358-3.74) O2 Saturation 96 % (92-99) Arterial Blood pH 7.39 (7.35-7.45) Arterial Blood pCO2 at Patient Temp 34 mmHg (35-46) Arterial Blood pO2 at Patient Temp 81 mmHg (65-108) Arterial Blood HCO3 20 mmol/L (21-28) Arterial Blood Base Excess -4 mmol/L (-3-3) FiO2 21 Ammonia < 10 mcmol/L (11-34) Assessment/Plan Assessment/Plan IMP WANG WITH CR OF 3.4 HYPERNATREMIA EXTRACELLULAR VOLUME DEPLETION ENCEPHALOPATHY HX OF HTN BPH/INCONTINENCE PLAN HYDRATION HOLD MICARDIS RENAL SONOGRAM CHECK UA WILL FOLLOW GETACHEW EM MD Aug 29, 2020 17:51
[2020-08-29] MEDS: IV 1/2 NORMAL SALINE 1,000 ML IV SCH (18:08)
--- NOTE | 2020-08-29 18:43 | EEG ---
DATE OF SERVICE: 08/29/2020 EEG NUMBER: OBJECTIVE: The patient is a 64-year-old male with altered mental status. DESCRIPTION: This is a digital study. Electrodes are placed according to the international 10-20 system. Bipolar and referential montages are available. Activation procedures typically include hyperventilation and intermittent photic stimulation. INTERPRETATION: The waking background consists of 4-6 Hz, 50-100 microvolt activity, symmetrically distributed over parietooccipital regions and reactive to eye opening. Hyperventilation is not performed. Intermittent photic stimulation is noncontributory. Sleep is not achieved. IMPRESSION: This electroencephalogram with the patient in an obtunded state is abnormal because of a moderate, diffuse disturbance of cerebral activity consistent with any of a variety of toxic or metabolic encephalopathies. There is no focal, paroxysmal, or epileptiform activity. Thank you for letting us help with the patient's care. JOSE CARLOS JOHNSON MD DR: ANABEL/emory JOB#: [id number] / [id number]
[2020-08-29 19:00] VITALS: BP 136/76
[2020-08-29] MEDS: CEFEPIME HCL IV Push 1 GM VIAL. IVP SCH (22:47)
[2020-08-29 23:00] VITALS: BP 133/68
[2020-08-30 02:44] LABS: BARBITURATES NEG (NEG); BENZODIAZEPINES NEG (NEG); CANNABINOIDS NEG (NEG); COCAINE NEG (NEG); METHADONE NEG (NEG); OPIATES NEG (NEG); PHENCYCLIDINE NEG (NEG)
[2020-08-30 02:50] LABS: AMPHETAMINE/METHAMPHETAMINE NEG (NEG)
[2020-08-30 03:00] VITALS: BP 107/62
[2020-08-30] MEDS: IV 1/2 NORMAL SALINE 1,000 ML IV SCH ×2 (04:49→15:16)
--- NOTE | 2020-08-30 04:59 | NUR ---
Patient is straight catheterized to obtain urine cx
[2020-08-30 07:00] VITALS: BP 124/82
--- NOTE | 2020-08-30 08:37 | PDOC ---
PROGRESS NOTES Date of Service: DATE: 08/30/20 TIME: 08:37 Chief Complaint Chief Complaint VTE Prophylaxis Ordered VTE Prophylaxis Devices: Yes VTE Pharmacological Prophylaxi: Yes Assessment/Plan Assessment/Plan Impression: 1. No acute intracranial hemorrhage. 2. Bilateral thalamic age-indeterminate infarcts. PLAN MRI as noted 1-13 Foci of diffusion signal hyperintensity involving the left blake radiata, left centrum semiovale and right occipital lobe suggests acute lacunar infarcts. There is mild associated cytotoxic edema without mass effect or hemorrhage. Foci susceptibility artifact scattered throughout the brain parenchyma suggests microhemorrhages versus tiny cavernoma. Moderate to advanced generalized cerebral volume loss. Moderate bilateral hippocampal volume loss. 3. Extensive sequelae of chronic microvascular ischemia. 4. Mildly dilated lateral third ventricles, may relate to central brain parenchymal volume loss POSSIBLE normal pressure hydrocephalus 5. Patchy opacities left lung base may represent consolidative process such as pneumonia., aspiration risk 6. WANG PLAN ADMIT MRI HEAD NEUROLOGY CONSULT emperic iv antibiotics dvt prophylaxis NEPHROLOGY CONSULT iv fluid support ID CONSULT 26 min pt exam, chart review, > 50% of time spent with exam, chart review, pt care coordination History of Present Illness History of Present Illness Identification/Chief Complaint Chief Complaint AMS, CODE STROKE IN ER History of Present Illness History of Present Illness seen in er with AMS, 64 year old male coming in for halfway for altered mental status. Per the report he is normally GCS 15 awake and alert. Last time he was seen was at dinner at 1800 where he was acting normally. When staff went to put him to bed about 30 minutes prior to arrival they noticed he was altered and not following commands. Per nursing facility documentation he is on Eliquis for DVTs. He has a history of metabolic encephalopathy, also has hepatitis C virus. No known falls or evidence of trauma. On arrival patient is awake but not following commands, some tracking of gaze. Patient not cooperative with NIH score. Picking his arms appears resistance but no cooperative effort and exam. cr elevated at 3 Code stroke activated on patient's arrival, no acute bleed or stroke CT. Discussed with neurology, Dr. Mccracken, not a TPA candidate secondary to Eliquis. Requesting CTA be done prior to admission HIV positive. Patient had several MRI studies, 2 lumbar punctures, and full evaluation including syphilis serologies, which were negative. at [facility] he was treated with antibiotics for syphilis and other infections, but nothing came with the work-up except for possible ventriculomegaly. A [employer] shunt was discussed, but the doctors did not think that normal pressure hydrocephalus was an issue. Review of Systems: Review of Systems: Unable to obtain due to patient's mental status Past Medical History Cardiovascular: HTN, Hyperlipidemia, Other (DVT) CENTRAL NERVOUS SYSTEM: Other (met enceph) Hepatobiliary: Hep A/B/C (C) Psych: Depression, Other (thrombocythemia) Rheumatologic: Gout Infectious disease: HIV Renal/: Urinary Incontinence Family History Family History: Hypertension Social History Smoke: No ALCOHOL: none Drugs: None Current Problem List Problem List Problems Medical Problems: (1) AMS (altered mental status) Status: Acute (2) HCAP (healthcare-associated pneumonia) Status: Acute Vitals Vitals Vital Signs Date Time Temp Pulse Resp B/P (MAP) Pulse Ox O2 Delivery O2 Flow Rate FiO2 08/30/20 03:00 98.5 79 22 107/62 (77) 98 Room Air 98.5 Physical Exam General: Cooperative, No acute distress Heart: Regular rate Abdomen: Normal bowel sounds, Soft, No tenderness Extremities: No cyanosis Skin: No breakdown Labs LABS ADDENDUM #1 Addendum: Unsuccessful attempt to reach patients nurse at the above mentioned time. End of Addendum. Electronically signed by: Eliane Palacio MD (08/29/2020 4:49 PM) [id number] ORIGINAL REPORT EXAMINATION: Magnetic resonance imaging (MRI) of the brain and brainstem without contrast 08/29/2020 2:49 PM HISTORY: Altered mental status, HIV-positive TECHNIQUE: Multiplanar multi-weighted MRI of the brain and brainstem was performed without intravenous contrast using the general brain protocol. COMPARISON: None available. FINDINGS: The scalp and calvarium are normal. The superior sagittal sinus demonstrates normal venous flow. The corpus callosum is normal in shape and signal intensity. The posterior fossa is unremarkable. The pituitary and sella are normal. The brainstem and craniocervical junction are unremarkable. Foci of diffusion signal hyperintensity are identified in the left centrum semiovale and left blake radiata posteriorly which may represent a infarcts. Additional focus of susceptibility artifact is identified along the right occipital horn periventricular white matter. Scattered susceptibility artifact is identified throughout the brain parenchyma numbering at least 10 suggestive of areas of microhemorrhage or tiny cavernoma as involving the bifrontal lobes, bitemporal lobes, medial left occipital lobe and left thalamus. Ventricles, sulci and basal cisterns are prominent compatible with moderate to advanced generalized cerebral volume loss. There are T2/FLAIR signal hyperintense foci in the angie, periventricular and subcortical white matter with areas of confluence most suggestive of advanced chronic small vessel ischemic changes. Moderate hippocampal volume loss. The paranasal sinuses are normal. The visualized portions of the mastoids are unremarkable. The orbits appear normal. Normal flow voids are demonstrated in the carotid arteries and basilar artery. IMPRESSION: 1. Foci of diffusion signal hyperintensity involving the left blake radiata, left centrum semiovale and right occipital lobe suggests acute lacunar infarcts. There is mild associated cytotoxic edema without mass effect or hemorrhage. 2. Foci susceptibility artifact scattered throughout the brain parenchyma suggests microhemorrhages versus tiny cavernoma. 3. Moderate to advanced generalized cerebral volume loss. Moderate bilateral hippocampal volume loss. 4. There are T2/FLAIR signal hyperintense foci in the angie, periventricular and subcortical white matter with areas of confluence most suggestive of advanced chronic small vessel ischemic changes. Degree of white matter changes are nonspecific and progressive multifocal leukoencephalopathy remains a differential consideration. Laboratory Tests Test 08/30/20 02:00 Urine Opiates Screen Neg (NEG) Urine Methadone Screen Neg (NEG) Urine Barbiturates Neg (NEG) Urine Phencyclidine Screen Neg (NEG) Urine Amphetamine/Methamphetamine Neg (NEG) Urine Benzodiazepines Screen Neg (NEG) Urine Cocaine Screen Neg (NEG) Urine Cannabinoids Screen Neg (NEG) Urine Ethyl Alcohol Neg (NEG) Assessment and Plan Assessmemt and Plan Problems Medical Problems: (1) AMS (altered mental status) Status: Acute (2) HCAP (healthcare-associated pneumonia) Status: Acute Comment Review of Relevant I have reviewed the following items zander (where applicable) has been applied. Labs Laboratory Tests Test 08/28/20 21:47 08/28/20 21:54 08/29/20 00:02 08/29/20 01:13 Glucose (Fingerstick) 130 mg/dL (70-99) White Blood Count 10.4 x10^3/uL (4.0-11.0) Red Blood Count 4.68 x10^6/uL (4.30-5.70) Hemoglobin 15.9 g/dL (13.0-17.5) Hematocrit 46.0 % (39.0-53.0) Mean Corpuscular Volume 98 fL (79-100) Mean Corpuscular Hemoglobin 34 pg (25-35) Mean Corpuscular Hemoglobin Concent 35 g/dL (31-37) Red Cell Distribution Width 15.3 % (11.5-14.5) Platelet Count 244 x10^3/uL (140-400) Neutrophils (%) (Auto) 84 % (31-73) Lymphocytes (%) (Auto) 8 % (24-48) Monocytes (%) (Auto) 8 % (0-9) Eosinophils (%) (Auto) 0 % (0-3) Basophils (%) (Auto) 1 % (0-3) Neutrophils # (Auto) 8.7 x10^3/uL (1.8-7.7) Lymphocytes # (Auto) 0.8 x10^3/uL (1.0-4.8) Monocytes # (Auto) 0.8 x10^3/uL (0.0-1.1) Eosinophils # (Auto) 0.0 x10^3/uL (0.0-0.7) Basophils # (Auto) 0.0 x10^3/uL (0.0-0.2) Prothrombin Time 16.1 SEC (11.7-14.0) Prothromb Time International Ratio 1.3 (0.8-1.1) Activated Partial Thromboplast Time 28 SEC (24-38) Sodium Level 151 mmol/L (136-145) Potassium Level 3.9 mmol/L (3.5-5.1) Chloride Level 112 mmol/L (98-107) Carbon Dioxide Level 25 mmol/L (21-32) Anion Gap 14 (6-14) Blood Urea Nitrogen 36 mg/dL (8-26) Creatinine 3.4 mg/dL (0.7-1.3) Estimated GFR (Cockcroft-Gault) 22.0 Glucose Level 135 mg/dL (70-99) Calcium Level 10.1 mg/dL (8.5-10.1) Troponin I Quantitative < 0.017 ng/mL (0.000-0.055) Thyroid Stimulating Hormone (TSH) 2.640 uIU/mL (0.358-3.74) O2 Saturation 96 % (92-99) Arterial Blood pH 7.39 (7.35-7.45) Arterial Blood pCO2 at Patient Temp 34 mmHg (35-46) Arterial Blood pO2 at Patient Temp 81 mmHg (65-108) Arterial Blood HCO3 20 mmol/L (21-28) Arterial Blood Base Excess -4 mmol/L (-3-3) FiO2 21 Ammonia < 10 mcmol/L (11-34) Test 08/30/20 02:00 Urine Opiates Screen Neg (NEG) Urine Methadone Screen Neg (NEG) Urine Barbiturates Neg (NEG) Urine Phencyclidine Screen Neg (NEG) Urine Amphetamine/Methamphetamine Neg (NEG) Urine Benzodiazepines Screen Neg (NEG) Urine Cocaine Screen Neg (NEG) Urine Cannabinoids Screen Neg (NEG) Urine Ethyl Alcohol Neg (NEG) Laboratory Tests Test 08/30/20 02:00 Urine Opiates Screen Neg (NEG) Urine Methadone Screen Neg (NEG) Urine Barbiturates Neg (NEG) Urine Phencyclidine Screen Neg (NEG) Urine Amphetamine/Methamphetamine Neg (NEG) Urine Benzodiazepines Screen Neg (NEG) Urine Cocaine Screen Neg (NEG) Urine Cannabinoids Screen Neg (NEG) Urine Ethyl Alcohol Neg (NEG) Microbiology 08/28/20 Blood Culture - Preliminary, Resulted NO GROWTH AFTER 1 DAY Medications Current Medications Sodium Chloride 1,000 ml @ 100 mls/hr Q10H IV Last administered on 08/29/20at 09:08; Start 08/28/20 at 22:15; Stop 08/29/20 at 18:11; Status DC Methylprednisolone Sodium Succinate (SOLU-Medrol 125MG VIAL) 125 mg 1X ONCE IV ; Start 08/28/20 at 23:55; Stop 08/29/20 at 00:12; Status DC Cefepime HCl (Maxipime) 1 gm 1X ONCE IVP Last administered on 08/29/20at 02:45; Start 08/29/20 at 02:30; Stop 08/29/20 at 02:32; Status DC Vancomycin HCl 1.75 gm/Sodium Chloride 500 ml @ 250 mls/hr 1X ONCE IV Last administered on 08/29/20at 02:48; Start 08/29/20 at 02:30; Stop 08/29/20 at 04:29; Status DC Cefepime HCl (Maxipime) 1 gm Q12HR IVP Last administered on 08/29/20at 22:47; Start 08/29/20 at 21:00 Sodium Chloride (Normal Saline Flush) 3 ml QSHIFT PRN IV AFTER MEDS AND BLOOD DRAWS; Start 08/29/20 at 14:45 Sodium Chloride 1,000 ml @ 100 mls/hr Q10H IV ; Start 08/29/20 at 14:45; Stop 08/29/20 at 18:11; Status DC Ondansetron HCl (Zofran) 4 mg PRN Q4HRS PRN IV NAUSEA/VOMITING; Start 08/29/20 at 14:45 Acetaminophen (Tylenol Supp) 650 mg PRN Q4HRS PRN DC TEMP OVER 100.4F OR MILD PAIN; Start 08/29/20 at 14:45 Sodium Monofluorophosphate (Fleet Adult) 133 ml PRN DAILY PRN DC CONSTIPATION; Start 08/29/20 at 14:45 Albuterol Sulfate (Ventolin Neb Soln) 2.5 mg PRN Q4HRS PRN NEB SHORTNESS OF BREATH; Start 08/29/20 at 14:45 Guaifenesin (Robitussin) 200 mg PRN Q4HRS PRN PO COUGH; Start 08/29/20 at 14:45 Sodium Chloride 1,000 ml @ 100 mls/hr Q10H IV Last administered on 08/30/20at 04:49; Start 08/29/20 at 18:00 Active Scripts Active Reported Multi-Vitamin Daily (Multivitamin) 1 Each Tablet 1 Tab PO DAILY 30 Days Tramadol Hcl 50 Mg Tablet 50 Mg PO Q6HRS PRN Tivicay (Dolutegravir Sodium) 50 Mg Tablet 1 Tab PO DAILY 30 Days Micardis (Telmisartan) 40 Mg Tablet 1 Tab PO DAILY Flomax (Tamsulosin Hcl) 0.4 Mg Cap.er.24h 1 Cap PO DAILY Symtuza [id number] mg Tab (Darunavir/Cob/Emtri/Tenof Alaf) 1 Each Tablet 1 Each PO DAILY Colcrys (Colchicine) 0.6 Mg Tablet 1 Tab PO DAILY 30 Days Betamethasone Dipropionate 15 Gm Cream..g. 1 Antoine TP BID Eliquis (Apixaban) 2.5 Mg Tablet 2.5 Mg PO BID Amlodipine Besylate 10 Mg Tablet 10 Mg PO DAILY Vitals/I & O Vital Sign - Last 24 Hours 08/29/20 08/29/20 08/29/20 08/29/20 11:00 15:00 19:00 20:00 Temp 98.1 98.5 97.9 98.1 98.5 97.9 Pulse 81 81 83 Resp 16 16 20 B/P (MAP) 111/84 (93) 118/72 (87) 136/76 (96) Pulse Ox 100 98 97 O2 Delivery Room Air Room Air Room Air Room Air 08/29/20 08/30/20 23:00 03:00 Temp 98.1 98.5 98.1 98.5 Pulse 82 79 Resp 20 22 B/P (MAP) 133/68 (89) 107/62 (77) Pulse Ox 97 98 O2 Delivery Room Air Room Air Intake and Output 08/29/20 08/29/20 08/30/20 14:59 22:59 06:59 Intake Total 0 ml 0 ml 1000 ml Output Total 0 ml 350 ml Balance 0 ml 0 ml 650 ml Justicifation of Admission Dx: Justifications for Admission: Justification of Admission Dx: Yes Stroke - Ischemic: Stroke-Ischemic EVE DOWNEY MD Aug 30, 2020 08:37
[2020-08-30 09:27] LABS: BASO # 0.1 x10^3/uL (0.0-0.2); BASO % 1 % (0-3); EOS # 0.1 x10^3/uL (0.0-0.7); EOS % 2 % (0-3); HEMATOCRIT 43.9 % (39.0-53.0); LYMPH # 2.3 x10^3/uL (1.0-4.8); LYMPH % 31 % (24-48); MEAN CORPUSCULAR HEMOGLOBIN 34 pg (25-35); MEAN CORPUSCULAR HGB CONC 34 g/dL (31-37); MEAN CORPUSCULAR VOLUME 99 fL (79-100); MONO # 0.9 x10^3/uL (0.0-1.1); MONO % 12 % (0-9); NEUT % 54 % (31-73); PLATELET COUNT 220 x10^3/uL (140-400); RED BLOOD COUNT 4.44 x10^6/uL (4.30-5.70); RED CELL DISTRIBUTION WIDTH 15.4 % (11.5-14.5); WHITE BLOOD COUNT 7.5 x10^3/uL (4.0-11.0)
[2020-08-30] MEDS ORDERED: ACETAMINOPHEN 325 MG TABLET. PO PRN (09:30)
[2020-08-30 10:06] LABS: ALBUMIN 3.1 g/dL (3.4-5.0); ALBUMIN/GLOBULIN RATIO 0.7 (1.0-1.7); CALCIUM 9.8 mg/dL (8.5-10.1); CREATININE 1.4 mg/dL (0.7-1.3); GFR 61.4; POTASSIUM 3.6 mmol/L (3.5-5.1); TOTAL BILIRUBIN 0.9 mg/dL (0.2-1.0); TOTAL PROTEIN 7.4 g/dL (6.4-8.2)
[2020-08-30] MEDS: CEFEPIME HCL IV Push 1 GM VIAL. IVP SCH ×2 (10:36→21:50)
[2020-08-30 11:00] VITALS: BP 146/77
--- NOTE | 2020-08-30 11:22 | RAD ---
US DPLX CAROTID BILAT History: Reason: CVA / Spl. Instructions: / History: Multiple grayscale, color, and duplex spectral analysis waveform sonographic images were acquired of the carotid, subclavian, and vertebral arteries. Comparison: None Findings: RIGHT SIDE: Peak systolic flow velocity of the distal CCA is 64 cm/sec. Peak systolic flow velocity of the ICA is 66 cm/sec. The ICA/CCA ratio is 1.0. Peak end diastolic flow velocity of the ICA is 18 cm/sec. The peak systolic velocity of the ECA is 71 cm/sec. Atherosclerotic plaque formation is identified. LEFT SIDE: Peak systolic flow velocity of the distal CCA is 65 cm/sec. Peak systolic flow velocity of the ICA is 68 cm/sec. The ICA/CCA ratio is 1.0. Peak end diastolic flow velocity of the ICA is 24 cm/sec. The ECA is not visualized Atherosclerotic plaque formation is identified. Vertebral arteries: Bilateral vertebral arteries demonstrate antegrade flow. Impression: Atherosclerosis of the cervical ICAs with velocities consistent with less than 50 percent stenosis. PQRS Compliance Statement - Stenosis calculations for carotid ultrasound studies are derived from filippo idated velocity criteria which are known to correlate with the NASCET methodology. Electronically signed by: Jacob Villanueva MD (08/30/2020 11:20 AM) [id number]
--- NOTE | 2020-08-30 11:44 | PDOC ---
Renal-Progress Notes Subjective Notes Notes NO NEW COMPLAINTS History of Present Illness Hx of present illness STABLE Vitals Vitals Vital Signs Date Time Temp Pulse Resp B/P (MAP) Pulse Ox O2 Delivery O2 Flow Rate FiO2 08/30/20 07:00 98.0 77 20 124/82 (96) 96 Room Air 98.0 Weight Weight [ ] I.O. Intake and Output Intake and Output 08/30/20 07:00 Intake Total 1000 ml Output Total 350 ml Balance 650 ml Intake Oral 0 ml IV Total 1000 ml Output Urine Total 350 ml # Voids 2 Labs Labs Laboratory Tests Test 08/30/20 02:00 08/30/20 08:50 Urine Opiates Screen Neg (NEG) Urine Methadone Screen Neg (NEG) Urine Barbiturates Neg (NEG) Urine Phencyclidine Screen Neg (NEG) Urine Amphetamine/Methamphetamine Neg (NEG) Urine Benzodiazepines Screen Neg (NEG) Urine Cocaine Screen Neg (NEG) Urine Cannabinoids Screen Neg (NEG) Urine Ethyl Alcohol Neg (NEG) White Blood Count 7.5 x10^3/uL (4.0-11.0) Red Blood Count 4.44 x10^6/uL (4.30-5.70) Hemoglobin 15.0 g/dL (13.0-17.5) Hematocrit 43.9 % (39.0-53.0) Mean Corpuscular Volume 99 fL (79-100) Mean Corpuscular Hemoglobin 34 pg (25-35) Mean Corpuscular Hemoglobin Concent 34 g/dL (31-37) Red Cell Distribution Width 15.4 % (11.5-14.5) Platelet Count 220 x10^3/uL (140-400) Neutrophils (%) (Auto) 54 % (31-73) Lymphocytes (%) (Auto) 31 % (24-48) Monocytes (%) (Auto) 12 % (0-9) Eosinophils (%) (Auto) 2 % (0-3) Basophils (%) (Auto) 1 % (0-3) Neutrophils # (Auto) 4.0 x10^3/uL (1.8-7.7) Lymphocytes # (Auto) 2.3 x10^3/uL (1.0-4.8) Monocytes # (Auto) 0.9 x10^3/uL (0.0-1.1) Eosinophils # (Auto) 0.1 x10^3/uL (0.0-0.7) Basophils # (Auto) 0.1 x10^3/uL (0.0-0.2) Sodium Level 147 mmol/L (136-145) Potassium Level 3.6 mmol/L (3.5-5.1) Chloride Level 110 mmol/L (98-107) Carbon Dioxide Level 28 mmol/L (21-32) Anion Gap 9 (6-14) Blood Urea Nitrogen 21 mg/dL (8-26) Creatinine 1.4 mg/dL (0.7-1.3) Estimated GFR (Cockcroft-Gault) 61.4 BUN/Creatinine Ratio 15 (6-20) Glucose Level 79 mg/dL (70-99) Calcium Level 9.8 mg/dL (8.5-10.1) Total Bilirubin 0.9 mg/dL (0.2-1.0) Aspartate Amino Transf (AST/SGOT) 93 U/L (15-37) Alanine Aminotransferase (ALT/SGPT) 41 U/L (16-63) Alkaline Phosphatase 74 U/L (46-116) Total Protein 7.4 g/dL (6.4-8.2) Albumin 3.1 g/dL (3.4-5.0) Albumin/Globulin Ratio 0.7 (1.0-1.7) Micro Micro Microbiology 08/28/20 Blood Culture - Preliminary, Resulted NO GROWTH AFTER 1 DAY Review of Systems Constitutional: yes: other (CONFUSED) Physical Exam General Appearance: no apparent distress Skin: warm Respiratory: decreased breath sounds Heart: S1S2 Genitourinary: bladder flat Neurology: alert, confused Assessment Assessment IMP WANG WITH CR OF 3.4 ON ADMIT - NOW DOWN TO 1.4 HYPERNATREMIA-IMPROVING EXTRACELLULAR VOLUME DEPLETION ENCEPHALOPATHY HX OF HTN BPH/INCONTINENCE PLAN HYDRATION HOLD MICARDIS WILL FOLLOW GETACHEW EM MD Aug 30, 2020 11:44
[2020-08-30 12:24] LABS: BILIRUBIN,URINE NEGATIVE (NEG); CLARITY,URINE CLEAR; COLOR,URINE YELLOW; NITRITE,URINE NEGATIVE (NEG); PROTEIN,URINE NEGATIVE (NEG-TRACE); UROBILINOGEN,URINE 0.2 mg/dL (0.2 mg/dL)
[2020-08-30 12:37] LABS: BACTERIA,URINE 0 /HPF (0-FEW); HYALINE CASTS, URINE OCCASIONAL /HPF; RBC,URINE OCC /HPF (0-2); WBC,URINE OCC /HPF (0-4)
--- NOTE | 2020-08-30 12:52 | PDOC ---
PULMONARY PROGRESS NOTES DATE: 08/30/20 TIME: 12:51 Vitals Vital Signs Date Time Temp Pulse Resp B/P (MAP) Pulse Ox O2 Delivery O2 Flow Rate FiO2 08/30/20 08:10 Room Air 08/30/20 07:00 98.0 77 20 124/82 (96) 96 98.0 Labs Laboratory Tests Test 08/28/20 21:47 08/28/20 21:54 08/29/20 00:02 08/29/20 01:13 Glucose (Fingerstick) 130 mg/dL (70-99) White Blood Count 10.4 x10^3/uL (4.0-11.0) Red Blood Count 4.68 x10^6/uL (4.30-5.70) Hemoglobin 15.9 g/dL (13.0-17.5) Hematocrit 46.0 % (39.0-53.0) Mean Corpuscular Volume 98 fL (79-100) Mean Corpuscular Hemoglobin 34 pg (25-35) Mean Corpuscular Hemoglobin Concent 35 g/dL (31-37) Red Cell Distribution Width 15.3 % (11.5-14.5) Platelet Count 244 x10^3/uL (140-400) Neutrophils (%) (Auto) 84 % (31-73) Lymphocytes (%) (Auto) 8 % (24-48) Monocytes (%) (Auto) 8 % (0-9) Eosinophils (%) (Auto) 0 % (0-3) Basophils (%) (Auto) 1 % (0-3) Neutrophils # (Auto) 8.7 x10^3/uL (1.8-7.7) Lymphocytes # (Auto) 0.8 x10^3/uL (1.0-4.8) Monocytes # (Auto) 0.8 x10^3/uL (0.0-1.1) Eosinophils # (Auto) 0.0 x10^3/uL (0.0-0.7) Basophils # (Auto) 0.0 x10^3/uL (0.0-0.2) Prothrombin Time 16.1 SEC (11.7-14.0) Prothromb Time International Ratio 1.3 (0.8-1.1) Activated Partial Thromboplast Time 28 SEC (24-38) Sodium Level 151 mmol/L (136-145) Potassium Level 3.9 mmol/L (3.5-5.1) Chloride Level 112 mmol/L (98-107) Carbon Dioxide Level 25 mmol/L (21-32) Anion Gap 14 (6-14) Blood Urea Nitrogen 36 mg/dL (8-26) Creatinine 3.4 mg/dL (0.7-1.3) Estimated GFR (Cockcroft-Gault) 22.0 Glucose Level 135 mg/dL (70-99) Calcium Level 10.1 mg/dL (8.5-10.1) Troponin I Quantitative < 0.017 ng/mL (0.000-0.055) Thyroid Stimulating Hormone (TSH) 2.640 uIU/mL (0.358-3.74) O2 Saturation 96 % (92-99) Arterial Blood pH 7.39 (7.35-7.45) Arterial Blood pCO2 at Patient Temp 34 mmHg (35-46) Arterial Blood pO2 at Patient Temp 81 mmHg (65-108) Arterial Blood HCO3 20 mmol/L (21-28) Arterial Blood Base Excess -4 mmol/L (-3-3) FiO2 21 Ammonia < 10 mcmol/L (11-34) Test 08/30/20 02:00 08/30/20 02:03 08/30/20 08:50 Urine Opiates Screen Neg (NEG) Urine Methadone Screen Neg (NEG) Urine Barbiturates Neg (NEG) Urine Phencyclidine Screen Neg (NEG) Urine Amphetamine/Methamphetamine Neg (NEG) Urine Benzodiazepines Screen Neg (NEG) Urine Cocaine Screen Neg (NEG) Urine Cannabinoids Screen Neg (NEG) Urine Ethyl Alcohol Neg (NEG) Urine Collection Type Unknown Urine Color Yellow Urine Clarity Clear Urine pH 6.0 (<5.0-8.0) Urine Specific [place] 1.010 (1.000-1.030) Urine Protein Negative mg/dL (NEG-TRACE) Urine Glucose (UA) Negative mg/dL (NEG) Urine Ketones (Stick) Negative mg/dL (NEG) Urine Blood Negative (NEG) Urine Nitrite Negative (NEG) Urine Bilirubin Negative (NEG) Urine Urobilinogen Dipstick 0.2 mg/dL (0.2 mg/dL) Urine Leukocyte Esterase Negative (NEG) Urine RBC Occ /HPF (0-2) Urine WBC Occ /HPF (0-4) Urine Squamous Epithelial Cells Occ /LPF Urine Bacteria 0 /HPF (0-FEW) Urine Hyaline Casts Occasional /HPF Urine Mucus Slight /LPF White Blood Count 7.5 x10^3/uL (4.0-11.0) Red Blood Count 4.44 x10^6/uL (4.30-5.70) Hemoglobin 15.0 g/dL (13.0-17.5) Hematocrit 43.9 % (39.0-53.0) Mean Corpuscular Volume 99 fL (79-100) Mean Corpuscular Hemoglobin 34 pg (25-35) Mean Corpuscular Hemoglobin Concent 34 g/dL (31-37) Red Cell Distribution Width 15.4 % (11.5-14.5) Platelet Count 220 x10^3/uL (140-400) Neutrophils (%) (Auto) 54 % (31-73) Lymphocytes (%) (Auto) 31 % (24-48) Monocytes (%) (Auto) 12 % (0-9) Eosinophils (%) (Auto) 2 % (0-3) Basophils (%) (Auto) 1 % (0-3) Neutrophils # (Auto) 4.0 x10^3/uL (1.8-7.7) Lymphocytes # (Auto) 2.3 x10^3/uL (1.0-4.8) Monocytes # (Auto) 0.9 x10^3/uL (0.0-1.1) Eosinophils # (Auto) 0.1 x10^3/uL (0.0-0.7) Basophils # (Auto) 0.1 x10^3/uL (0.0-0.2) Sodium Level 147 mmol/L (136-145) Potassium Level 3.6 mmol/L (3.5-5.1) Chloride Level 110 mmol/L (98-107) Carbon Dioxide Level 28 mmol/L (21-32) Anion Gap 9 (6-14) Blood Urea Nitrogen 21 mg/dL (8-26) Creatinine 1.4 mg/dL (0.7-1.3) Estimated GFR (Cockcroft-Gault) 61.4 BUN/Creatinine Ratio 15 (6-20) Glucose Level 79 mg/dL (70-99) Calcium Level 9.8 mg/dL (8.5-10.1) Total Bilirubin 0.9 mg/dL (0.2-1.0) Aspartate Amino Transf (AST/SGOT) 93 U/L (15-37) Alanine Aminotransferase (ALT/SGPT) 41 U/L (16-63) Alkaline Phosphatase 74 U/L (46-116) Total Protein 7.4 g/dL (6.4-8.2) Albumin 3.1 g/dL (3.4-5.0) Albumin/Globulin Ratio 0.7 (1.0-1.7) Laboratory Tests Test 08/30/20 02:00 08/30/20 02:03 08/30/20 08:50 Urine Opiates Screen Neg (NEG) Urine Methadone Screen Neg (NEG) Urine Barbiturates Neg (NEG) Urine Phencyclidine Screen Neg (NEG) Urine Amphetamine/Methamphetamine Neg (NEG) Urine Benzodiazepines Screen Neg (NEG) Urine Cocaine Screen Neg (NEG) Urine Cannabinoids Screen Neg (NEG) Urine Ethyl Alcohol Neg (NEG) Urine Collection Type Unknown Urine Color Yellow Urine Clarity Clear Urine pH 6.0 (<5.0-8.0) Urine Specific [place] 1.010 (1.000-1.030) Urine Protein Negative mg/dL (NEG-TRACE) Urine Glucose (UA) Negative mg/dL (NEG) Urine Ketones (Stick) Negative mg/dL (NEG) Urine Blood Negative (NEG) Urine Nitrite Negative (NEG) Urine Bilirubin Negative (NEG) Urine Urobilinogen Dipstick 0.2 mg/dL (0.2 mg/dL) Urine Leukocyte Esterase Negative (NEG) Urine RBC Occ /HPF (0-2) Urine WBC Occ /HPF (0-4) Urine Squamous Epithelial Cells Occ /LPF Urine Bacteria 0 /HPF (0-FEW) Urine Hyaline Casts Occasional /HPF Urine Mucus Slight /LPF White Blood Count 7.5 x10^3/uL (4.0-11.0) Red Blood Count 4.44 x10^6/uL (4.30-5.70) Hemoglobin 15.0 g/dL (13.0-17.5) Hematocrit 43.9 % (39.0-53.0) Mean Corpuscular Volume 99 fL (79-100) Mean Corpuscular Hemoglobin 34 pg (25-35) Mean Corpuscular Hemoglobin Concent 34 g/dL (31-37) Red Cell Distribution Width 15.4 % (11.5-14.5) Platelet Count 220 x10^3/uL (140-400) Neutrophils (%) (Auto) 54 % (31-73) Lymphocytes (%) (Auto) 31 % (24-48) Monocytes (%) (Auto) 12 % (0-9) Eosinophils (%) (Auto) 2 % (0-3) Basophils (%) (Auto) 1 % (0-3) Neutrophils # (Auto) 4.0 x10^3/uL (1.8-7.7) Lymphocytes # (Auto) 2.3 x10^3/uL (1.0-4.8) Monocytes # (Auto) 0.9 x10^3/uL (0.0-1.1) Eosinophils # (Auto) 0.1 x10^3/uL (0.0-0.7) Basophils # (Auto) 0.1 x10^3/uL (0.0-0.2) Sodium Level 147 mmol/L (136-145) Potassium Level 3.6 mmol/L (3.5-5.1) Chloride Level 110 mmol/L (98-107) Carbon Dioxide Level 28 mmol/L (21-32) Anion Gap 9 (6-14) Blood Urea Nitrogen 21 mg/dL (8-26) Creatinine 1.4 mg/dL (0.7-1.3) Estimated GFR (Cockcroft-Gault) 61.4 BUN/Creatinine Ratio 15 (6-20) Glucose Level 79 mg/dL (70-99) Calcium Level 9.8 mg/dL (8.5-10.1) Total Bilirubin 0.9 mg/dL (0.2-1.0) Aspartate Amino Transf (AST/SGOT) 93 U/L (15-37) Alanine Aminotransferase (ALT/SGPT) 41 U/L (16-63) Alkaline Phosphatase 74 U/L (46-116) Total Protein 7.4 g/dL (6.4-8.2) Albumin 3.1 g/dL (3.4-5.0) Albumin/Globulin Ratio 0.7 (1.0-1.7) Medications Active Scripts Medications Dose Route/Sig Max Daily Dose Days Date Category Multi-Vitamin Daily (Multivitamin) 1 Each Tablet 1 Tab PO DAILY 30 08/29/20 Reported Tramadol Hcl 50 Mg Tablet 50 Mg PO Q6HRS PRN 08/29/20 Reported Tivicay (Dolutegravir Sodium) 50 Mg Tablet 1 Tab PO DAILY 30 08/29/20 Reported Micardis (Telmisartan) 40 Mg Tablet 1 Tab PO DAILY 08/29/20 Reported Flomax (Tamsulosin Hcl) 0.4 Mg Cap.er.24h 1 Cap PO DAILY 08/29/20 Reported Symtuza [phone] mg Tab (Darunavir/Cob/Emtri/Tenof Alaf) 1 Each Tablet 1 Each PO DAILY 08/29/20 Reported Colcrys (Colchicine) 0.6 Mg Tablet 1 Tab PO DAILY 30 08/29/20 Reported Betamethasone Dipropionate 15 Gm Cream..g. 1 Antoine TP BID 08/29/20 Reported Eliquis (Apixaban) 2.5 Mg Tablet 2.5 Mg PO BID 08/29/20 Reported Amlodipine Besylate 10 Mg Tablet 10 Mg PO DAILY 08/29/20 Reported Impression . FULL CONSULT DICTATED ASPIRATION PNEUMONIA THANKS ANGIE SANDY MD Aug 30, 2020 12:52
--- NOTE | 2020-08-30 12:57 | PDOC ---
Infectious Disease Note Vital Signs: Vital Signs Vital Signs Date Time Temp Pulse Resp B/P (MAP) Pulse Ox O2 Delivery O2 Flow Rate FiO2 08/30/20 08:10 Room Air 08/30/20 07:00 98.0 77 20 124/82 (96) 96 98.0 Medications: Inpatient Meds: Current Medications Medications (Trade) Dose Ordered Sig/Mary Start Time Stop Time Status Last Admin Dose Admin Acetaminophen (Tylenol Supp) 650 mg PRN Q4HRS PRN 08/29/20 14:45 Acetaminophen (Tylenol) 650 mg PRN Q6HRS PRN 08/30/20 09:30 Albuterol Sulfate (Ventolin Neb Soln) 2.5 mg PRN Q4HRS PRN 08/29/20 14:45 Cefepime HCl (Maxipime) 1 gm Q12HR 08/29/20 21:00 08/30/20 10:36 1 GM Guaifenesin (Robitussin) 200 mg PRN Q4HRS PRN 08/29/20 14:45 Methylprednisolone Sodium Succinate (SOLU-Medrol 125MG VIAL) 125 mg 1X ONCE 08/28/20 23:55 08/29/20 00:12 DC Ondansetron HCl (Zofran) 4 mg PRN Q4HRS PRN 08/29/20 14:45 Sodium Monofluorophosphate (Fleet Adult) 133 ml PRN DAILY PRN 08/29/20 14:45 Sodium Chloride 1,000 ml @ 100 mls/hr Q10H 08/29/20 18:00 08/30/20 04:49 100 MLS/HR Sodium Chloride (Normal Saline Flush) 3 ml QSHIFT PRN 08/29/20 14:45 Vancomycin HCl 1.75 gm/Sodium Chloride 500 ml @ 250 mls/hr 1X ONCE 08/29/20 02:30 08/29/20 04:29 DC 08/29/20 02:48 250 MLS/HR Labs: Lab Laboratory Tests Test 08/30/20 02:00 08/30/20 02:03 08/30/20 08:50 Urine Opiates Screen Neg (NEG) Urine Methadone Screen Neg (NEG) Urine Barbiturates Neg (NEG) Urine Phencyclidine Screen Neg (NEG) Urine Amphetamine/Methamphetamine Neg (NEG) Urine Benzodiazepines Screen Neg (NEG) Urine Cocaine Screen Neg (NEG) Urine Cannabinoids Screen Neg (NEG) Urine Ethyl Alcohol Neg (NEG) Urine Collection Type Unknown Urine Color Yellow Urine Clarity Clear Urine pH 6.0 (<5.0-8.0) Urine Specific [place] 1.010 (1.000-1.030) Urine Protein Negative mg/dL (NEG-TRACE) Urine Glucose (UA) Negative mg/dL (NEG) Urine Ketones (Stick) Negative mg/dL (NEG) Urine Blood Negative (NEG) Urine Nitrite Negative (NEG) Urine Bilirubin Negative (NEG) Urine Urobilinogen Dipstick 0.2 mg/dL (0.2 mg/dL) Urine Leukocyte Esterase Negative (NEG) Urine RBC Occ /HPF (0-2) Urine WBC Occ /HPF (0-4) Urine Squamous Epithelial Cells Occ /LPF Urine Bacteria 0 /HPF (0-FEW) Urine Hyaline Casts Occasional /HPF Urine Mucus Slight /LPF White Blood Count 7.5 x10^3/uL (4.0-11.0) Red Blood Count 4.44 x10^6/uL (4.30-5.70) Hemoglobin 15.0 g/dL (13.0-17.5) Hematocrit 43.9 % (39.0-53.0) Mean Corpuscular Volume 99 fL (79-100) Mean Corpuscular Hemoglobin 34 pg (25-35) Mean Corpuscular Hemoglobin Concent 34 g/dL (31-37) Red Cell Distribution Width 15.4 % (11.5-14.5) Platelet Count 220 x10^3/uL (140-400) Neutrophils (%) (Auto) 54 % (31-73) Lymphocytes (%) (Auto) 31 % (24-48) Monocytes (%) (Auto) 12 % (0-9) Eosinophils (%) (Auto) 2 % (0-3) Basophils (%) (Auto) 1 % (0-3) Neutrophils # (Auto) 4.0 x10^3/uL (1.8-7.7) Lymphocytes # (Auto) 2.3 x10^3/uL (1.0-4.8) Monocytes # (Auto) 0.9 x10^3/uL (0.0-1.1) Eosinophils # (Auto) 0.1 x10^3/uL (0.0-0.7) Basophils # (Auto) 0.1 x10^3/uL (0.0-0.2) Sodium Level 147 mmol/L (136-145) Potassium Level 3.6 mmol/L (3.5-5.1) Chloride Level 110 mmol/L (98-107) Carbon Dioxide Level 28 mmol/L (21-32) Anion Gap 9 (6-14) Blood Urea Nitrogen 21 mg/dL (8-26) Creatinine 1.4 mg/dL (0.7-1.3) Estimated GFR (Cockcroft-Gault) 61.4 BUN/Creatinine Ratio 15 (6-20) Glucose Level 79 mg/dL (70-99) Calcium Level 9.8 mg/dL (8.5-10.1) Total Bilirubin 0.9 mg/dL (0.2-1.0) Aspartate Amino Transf (AST/SGOT) 93 U/L (15-37) Alanine Aminotransferase (ALT/SGPT) 41 U/L (16-63) Alkaline Phosphatase 74 U/L (46-116) Total Protein 7.4 g/dL (6.4-8.2) Albumin 3.1 g/dL (3.4-5.0) Albumin/Globulin Ratio 0.7 (1.0-1.7) Objective: Assessment: ID CONSULT DICTATED HIV ASPIRATION PNEUMONIA Plan: Plan of Care THANKS [id number] ROMMEL PIMENTEL MD Aug 30, 2020 12:57
[2020-08-30] MEDS ORDERED: ENOXAPARIN 40 MG/0.4 ML SYRINGE. SQ SCH ×3 (13:00→15:00)
--- NOTE | 2020-08-30 13:25 | PDOC ---
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 Renal injury Plan Stroke rehabilitation Overall prognosis is poor Return to custodial when medically stable N.p.o. for at least 1 more day, I am therefore starting Lovenox Holding on starting aspirin in combination with Eliquis he is already on, I believe the risks outweigh the benefits. Discussed with cousin/Sherine FLORES Subjective no complaints Objective Vital Signs Date Time Temp Pulse Resp B/P (MAP) Pulse Ox O2 Delivery O2 Flow Rate FiO2 08/30/20 08:10 Room Air 08/30/20 07:00 98.0 77 20 124/82 (96) 96 98.0 Intake and Output 08/30/20 07:00 Intake Total 1000 ml Output Total 350 ml Balance 650 ml Intake Oral 0 ml IV Total 1000 ml Output Urine Total 350 ml # Voids 2 PHYSICAL EXAM Alert. Can tell me his name, smiles, follows a few simple commands PERRL. EOMI. CN: no focal findings. Muscle tone: normal. Muscle strength: 3/5 DTR: 2+ Plantar reflex: Flexor Gait: not examined in bed. Sensory exam: no abnormal findings. No cerebellar signs elicited. Review of Relevant I have reviewed the following items zander (where applicable) has been applied. Labs Laboratory Tests Test 08/28/20 21:47 08/28/20 21:54 08/29/20 00:02 08/29/20 01:13 Glucose (Fingerstick) 130 mg/dL (70-99) White Blood Count 10.4 x10^3/uL (4.0-11.0) Red Blood Count 4.68 x10^6/uL (4.30-5.70) Hemoglobin 15.9 g/dL (13.0-17.5) Hematocrit 46.0 % (39.0-53.0) Mean Corpuscular Volume 98 fL (79-100) Mean Corpuscular Hemoglobin 34 pg (25-35) Mean Corpuscular Hemoglobin Concent 35 g/dL (31-37) Red Cell Distribution Width 15.3 % (11.5-14.5) Platelet Count 244 x10^3/uL (140-400) Neutrophils (%) (Auto) 84 % (31-73) Lymphocytes (%) (Auto) 8 % (24-48) Monocytes (%) (Auto) 8 % (0-9) Eosinophils (%) (Auto) 0 % (0-3) Basophils (%) (Auto) 1 % (0-3) Neutrophils # (Auto) 8.7 x10^3/uL (1.8-7.7) Lymphocytes # (Auto) 0.8 x10^3/uL (1.0-4.8) Monocytes # (Auto) 0.8 x10^3/uL (0.0-1.1) Eosinophils # (Auto) 0.0 x10^3/uL (0.0-0.7) Basophils # (Auto) 0.0 x10^3/uL (0.0-0.2) Prothrombin Time 16.1 SEC (11.7-14.0) Prothromb Time International Ratio 1.3 (0.8-1.1) Activated Partial Thromboplast Time 28 SEC (24-38) Sodium Level 151 mmol/L (136-145) Potassium Level 3.9 mmol/L (3.5-5.1) Chloride Level 112 mmol/L (98-107) Carbon Dioxide Level 25 mmol/L (21-32) Anion Gap 14 (6-14) Blood Urea Nitrogen 36 mg/dL (8-26) Creatinine 3.4 mg/dL (0.7-1.3) Estimated GFR (Cockcroft-Gault) 22.0 Glucose Level 135 mg/dL (70-99) Calcium Level 10.1 mg/dL (8.5-10.1) Troponin I Quantitative < 0.017 ng/mL (0.000-0.055) Thyroid Stimulating Hormone (TSH) 2.640 uIU/mL (0.358-3.74) O2 Saturation 96 % (92-99) Arterial Blood pH 7.39 (7.35-7.45) Arterial Blood pCO2 at Patient Temp 34 mmHg (35-46) Arterial Blood pO2 at Patient Temp 81 mmHg (65-108) Arterial Blood HCO3 20 mmol/L (21-28) Arterial Blood Base Excess -4 mmol/L (-3-3) FiO2 21 Ammonia < 10 mcmol/L (11-34) Test 08/30/20 02:00 08/30/20 02:03 08/30/20 08:50 Urine Opiates Screen Neg (NEG) Urine Methadone Screen Neg (NEG) Urine Barbiturates Neg (NEG) Urine Phencyclidine Screen Neg (NEG) Urine Amphetamine/Methamphetamine Neg (NEG) Urine Benzodiazepines Screen Neg (NEG) Urine Cocaine Screen Neg (NEG) Urine Cannabinoids Screen Neg (NEG) Urine Ethyl Alcohol Neg (NEG) Urine Collection Type Unknown Urine Color Yellow Urine Clarity Clear Urine pH 6.0 (<5.0-8.0) Urine Specific [place] 1.010 (1.000-1.030) Urine Protein Negative mg/dL (NEG-TRACE) Urine Glucose (UA) Negative mg/dL (NEG) Urine Ketones (Stick) Negative mg/dL (NEG) Urine Blood Negative (NEG) Urine Nitrite Negative (NEG) Urine Bilirubin Negative (NEG) Urine Urobilinogen Dipstick 0.2 mg/dL (0.2 mg/dL) Urine Leukocyte Esterase Negative (NEG) Urine RBC Occ /HPF (0-2) Urine WBC Occ /HPF (0-4) Urine Squamous Epithelial Cells Occ /LPF Urine Bacteria 0 /HPF (0-FEW) Urine Hyaline Casts Occasional /HPF Urine Mucus Slight /LPF White Blood Count 7.5 x10^3/uL (4.0-11.0) Red Blood Count 4.44 x10^6/uL (4.30-5.70) Hemoglobin 15.0 g/dL (13.0-17.5) Hematocrit 43.9 % (39.0-53.0) Mean Corpuscular Volume 99 fL (79-100) Mean Corpuscular Hemoglobin 34 pg (25-35) Mean Corpuscular Hemoglobin Concent 34 g/dL (31-37) Red Cell Distribution Width 15.4 % (11.5-14.5) Platelet Count 220 x10^3/uL (140-400) Neutrophils (%) (Auto) 54 % (31-73) Lymphocytes (%) (Auto) 31 % (24-48) Monocytes (%) (Auto) 12 % (0-9) Eosinophils (%) (Auto) 2 % (0-3) Basophils (%) (Auto) 1 % (0-3) Neutrophils # (Auto) 4.0 x10^3/uL (1.8-7.7) Lymphocytes # (Auto) 2.3 x10^3/uL (1.0-4.8) Monocytes # (Auto) 0.9 x10^3/uL (0.0-1.1) Eosinophils # (Auto) 0.1 x10^3/uL (0.0-0.7) Basophils # (Auto) 0.1 x10^3/uL (0.0-0.2) Sodium Level 147 mmol/L (136-145) Potassium Level 3.6 mmol/L (3.5-5.1) Chloride Level 110 mmol/L (98-107) Carbon Dioxide Level 28 mmol/L (21-32) Anion Gap 9 (6-14) Blood Urea Nitrogen 21 mg/dL (8-26) Creatinine 1.4 mg/dL (0.7-1.3) Estimated GFR (Cockcroft-Gault) 61.4 BUN/Creatinine Ratio 15 (6-20) Glucose Level 79 mg/dL (70-99) Calcium Level 9.8 mg/dL (8.5-10.1) Total Bilirubin 0.9 mg/dL (0.2-1.0) Aspartate Amino Transf (AST/SGOT) 93 U/L (15-37) Alanine Aminotransferase (ALT/SGPT) 41 U/L (16-63) Alkaline Phosphatase 74 U/L (46-116) Total Protein 7.4 g/dL (6.4-8.2) Albumin 3.1 g/dL (3.4-5.0) Albumin/Globulin Ratio 0.7 (1.0-1.7) Laboratory Tests Test 08/30/20 02:00 08/30/20 02:03 08/30/20 08:50 Urine Opiates Screen Neg (NEG) Urine Methadone Screen Neg (NEG) Urine Barbiturates Neg (NEG) Urine Phencyclidine Screen Neg (NEG) Urine Amphetamine/Methamphetamine Neg (NEG) Urine Benzodiazepines Screen Neg (NEG) Urine Cocaine Screen Neg (NEG) Urine Cannabinoids Screen Neg (NEG) Urine Ethyl Alcohol Neg (NEG) Urine Collection Type Unknown Urine Color Yellow Urine Clarity Clear Urine pH 6.0 (<5.0-8.0) Urine Specific [place] 1.010 (1.000-1.030) Urine Protein Negative mg/dL (NEG-TRACE) Urine Glucose (UA) Negative mg/dL (NEG) Urine Ketones (Stick) Negative mg/dL (NEG) Urine Blood Negative (NEG) Urine Nitrite Negative (NEG) Urine Bilirubin Negative (NEG) Urine Urobilinogen Dipstick 0.2 mg/dL (0.2 mg/dL) Urine Leukocyte Esterase Negative (NEG) Urine RBC Occ /HPF (0-2) Urine WBC Occ /HPF (0-4) Urine Squamous Epithelial Cells Occ /LPF Urine Bacteria 0 /HPF (0-FEW) Urine Hyaline Casts Occasional /HPF Urine Mucus Slight /LPF White Blood Count 7.5 x10^3/uL (4.0-11.0) Red Blood Count 4.44 x10^6/uL (4.30-5.70) Hemoglobin 15.0 g/dL (13.0-17.5) Hematocrit 43.9 % (39.0-53.0) Mean Corpuscular Volume 99 fL (79-100) Mean Corpuscular Hemoglobin 34 pg (25-35) Mean Corpuscular Hemoglobin Concent 34 g/dL (31-37) Red Cell Distribution Width 15.4 % (11.5-14.5) Platelet Count 220 x10^3/uL (140-400) Neutrophils (%) (Auto) 54 % (31-73) Lymphocytes (%) (Auto) 31 % (24-48) Monocytes (%) (Auto) 12 % (0-9) Eosinophils (%) (Auto) 2 % (0-3) Basophils (%) (Auto) 1 % (0-3) Neutrophils # (Auto) 4.0 x10^3/uL (1.8-7.7) Lymphocytes # (Auto) 2.3 x10^3/uL (1.0-4.8) Monocytes # (Auto) 0.9 x10^3/uL (0.0-1.1) Eosinophils # (Auto) 0.1 x10^3/uL (0.0-0.7) Basophils # (Auto) 0.1 x10^3/uL (0.0-0.2) Sodium Level 147 mmol/L (136-145) Potassium Level 3.6 mmol/L (3.5-5.1) Chloride Level 110 mmol/L (98-107) Carbon Dioxide Level 28 mmol/L (21-32) Anion Gap 9 (6-14) Blood Urea Nitrogen 21 mg/dL (8-26) Creatinine 1.4 mg/dL (0.7-1.3) Estimated GFR (Cockcroft-Gault) 61.4 BUN/Creatinine Ratio 15 (6-20) Glucose Level 79 mg/dL (70-99) Calcium Level 9.8 mg/dL (8.5-10.1) Total Bilirubin 0.9 mg/dL (0.2-1.0) Aspartate Amino Transf (AST/SGOT) 93 U/L (15-37) Alanine Aminotransferase (ALT/SGPT) 41 U/L (16-63) Alkaline Phosphatase 74 U/L (46-116) Total Protein 7.4 g/dL (6.4-8.2) Albumin 3.1 g/dL (3.4-5.0) Albumin/Globulin Ratio 0.7 (1.0-1.7) Microbiology 08/28/20 Blood Culture - Preliminary, Resulted NO GROWTH AFTER 1 DAY Medications Current Medications Sodium Chloride 1,000 ml @ 100 mls/hr Q10H IV Last administered on 08/29/20at 09:08; Start 08/28/20 at 22:15; Stop 08/29/20 at 18:11; Status DC Methylprednisolone Sodium Succinate (SOLU-Medrol 125MG VIAL) 125 mg 1X ONCE IV ; Start 08/28/20 at 23:55; Stop 08/29/20 at 00:12; Status DC Cefepime HCl (Maxipime) 1 gm 1X ONCE IVP Last administered on 08/29/20at 02:45; Start 08/29/20 at 02:30; Stop 08/29/20 at 02:32; Status DC Vancomycin HCl 1.75 gm/Sodium Chloride 500 ml @ 250 mls/hr 1X ONCE IV Last administered on 08/29/20at 02:48; Start 08/29/20 at 02:30; Stop 08/29/20 at 04:29; Status DC Cefepime HCl (Maxipime) 1 gm Q12HR IVP Last administered on 08/30/20at 10:36; Start 08/29/20 at 21:00 Sodium Chloride (Normal Saline Flush) 3 ml QSHIFT PRN IV AFTER MEDS AND BLOOD DRAWS; Start 08/29/20 at 14:45 Sodium Chloride 1,000 ml @ 100 mls/hr Q10H IV ; Start 08/29/20 at 14:45; Stop 08/29/20 at 18:11; Status DC Ondansetron HCl (Zofran) 4 mg PRN Q4HRS PRN IV NAUSEA/VOMITING; Start 08/29/20 at 14:45 Acetaminophen (Tylenol Supp) 650 mg PRN Q4HRS PRN AK TEMP OVER 100.4F OR MILD PAIN; Start 08/29/20 at 14:45 Sodium Monofluorophosphate (Fleet Adult) 133 ml PRN DAILY PRN AK CONSTIPATION; Start 08/29/20 at 14:45 Albuterol Sulfate (Ventolin Neb Soln) 2.5 mg PRN Q4HRS PRN NEB SHORTNESS OF BREATH; Start 08/29/20 at 14:45 Guaifenesin (Robitussin) 200 mg PRN Q4HRS PRN PO COUGH; Start 08/29/20 at 14:45 Sodium Chloride 1,000 ml @ 100 mls/hr Q10H IV Last administered on 08/30/20at 04:49; Start 08/29/20 at 18:00 Acetaminophen (Tylenol) 650 mg PRN Q6HRS PRN PO MILD PAIN / TEMP > 100.3'F; Start 08/30/20 at 09:30 Enoxaparin Sodium (Lovenox 40mg Syringe) 30 mg Q24H SQ ; Start 08/30/20 at 13:00 Active Scripts Active Reported Multi-Vitamin Daily (Multivitamin) 1 Each Tablet 1 Tab PO DAILY 30 Days Tramadol Hcl 50 Mg Tablet 50 Mg PO Q6HRS PRN Tivicay (Dolutegravir Sodium) 50 Mg Tablet 1 Tab PO DAILY 30 Days Micardis (Telmisartan) 40 Mg Tablet 1 Tab PO DAILY Flomax (Tamsulosin Hcl) 0.4 Mg Cap.er.24h 1 Cap PO DAILY Symtuza [phone] mg Tab (Darunavir/Cob/Emtri/Tenof Alaf) 1 Each Tablet 1 Each PO DAILY Colcrys (Colchicine) 0.6 Mg Tablet 1 Tab PO DAILY 30 Days Betamethasone Dipropionate 15 Gm Cream..g. 1 Antoine TP BID Eliquis (Apixaban) 2.5 Mg Tablet 2.5 Mg PO BID Amlodipine Besylate 10 Mg Tablet 10 Mg PO DAILY Vitals/I & O Vital Sign - Last 24 Hours 08/29/20 08/29/20 08/29/20 08/29/20 15:00 19:00 20:00 23:00 Temp 98.5 97.9 98.1 98.5 97.9 98.1 Pulse 81 83 82 Resp 16 20 20 B/P (MAP) 118/72 (87) 136/76 (96) 133/68 (89) Pulse Ox 98 97 97 O2 Delivery Room Air Room Air Room Air Room Air 08/30/20 08/30/20 08/30/20 03:00 07:00 08:10 Temp 98.5 98.0 98.5 98.0 Pulse 79 77 Resp 22 20 B/P (MAP) 107/62 (77) 124/82 (96) Pulse Ox 98 96 O2 Delivery Room Air Room Air Room Air Intake and Output 08/29/20 08/29/20 08/30/20 15:00 23:00 07:00 Intake Total 0 ml 0 ml 1000 ml Output Total 0 ml 350 ml Balance 0 ml 0 ml 650 ml Images MRI brain: The scalp and calvarium are normal. The superior sagittal sinus demonstrates normal venous flow. The corpus callosum is normal in shape and signal intensity. The posterior fossa is unremarkable. The pituitary and sella are normal. The brainstem and craniocervical junction are unremarkable. Foci of diffusion signal hyperintensity are identified in the left centrum semiovale and left blake radiata posteriorly which may represent a infarcts. Additional focus of susceptibility artifact is identified along the right occipital horn periventricular white matter. Scattered susceptibility artifact is identified throughout the brain parenchyma numbering at least 10 suggestive of areas of microhemorrhage or tiny cavernoma as involving the bifrontal lobes, bitemporal lobes, medial left occipital lobe and left thalamus. Ventricles, sulci and basal cisterns are prominent compatible with moderate to advanced generalized cerebral volume loss. There are T2/FLAIR signal hyperintense foci in the angie, periventricular and subcortical white matter with areas of confluence most suggestive of advanced chronic small vessel ischemic changes. Moderate hippocampal volume loss. The paranasal sinuses are normal. The visualized portions of the mastoids are unremarkable. The orbits appear normal. Normal flow voids are demonstrated in the carotid arteries and basilar artery. IMPRESSION: 1. Foci of diffusion signal hyperintensity involving the left blake radiata, left centrum semiovale and right occipital lobe suggests acute lacunar infarcts. There is mild associated cytotoxic edema without mass effect or hemorrhage. 2. Foci susceptibility artifact scattered throughout the brain parenchyma suggests microhemorrhages versus tiny cavernoma. 3. Moderate to advanced generalized cerebral volume loss. Moderate bilateral hippocampal volume loss. 4. There are T2/FLAIR signal hyperintense foci in the angie, periventricular and subcortical white matter with areas of confluence most suggestive of advanced chronic small vessel ischemic changes. Degree of white matter changes are nonspecific and progressive multifocal leukoencephalopathy remains a diffe rential consideration. Carotid Doppler studies: RIGHT SIDE: Peak systolic flow velocity of the distal CCA is 64 cm/sec. Peak systolic flow velocity of the ICA is 66 cm/sec. The ICA/CCA ratio is 1.0. Peak end diastolic flow velocity of the ICA is 18 cm/sec. The peak systolic velocity of the ECA is 71 cm/sec. Atherosclerotic plaque formation is identified. LEFT SIDE: Peak systolic flow velocity of the distal CCA is 65 cm/sec. Peak systolic flow velocity of the ICA is 68 cm/sec. The ICA/CCA ratio is 1.0. Peak end diastolic flow velocity of the ICA is 24 cm/sec. The ECA is not visualized Atherosclerotic plaque formation is identified. Vertebral arteries: Bilateral vertebral arteries demonstrate antegrade flow. Impression: Atherosclerosis of the cervical ICAs with velocities consistent with less than 50 percent stenosis. Justicifation of Admission Dx: Justifications for Admission: Justification of Admission Dx: Yes Stroke - Ischemic: Stroke-Ischemic JOSE CARLOS JOHNSON MD Aug 30, 2020 13:25
--- NOTE | 2020-08-30 14:23 | CONS ---
DATE OF CONSULTATION: 08/30/2020 ATTENDING PHYSICIAN: Damian Oliveros MD REASON FOR CONSULTATION: The patient is seen in pulmonary consultation at the request of Dr. Oliveros for abnormal chest x-ray, revealing patchy opacity in the left lower lobe. HISTORY OF PRESENT ILLNESS: The patient is a 64-year-old, unable to provide much information. He presented from a skilled nursing with altered mental status. The patient has been seen by Neurology, had an MRI of the brain which revealed multiple findings including evidence of lacunar infarct. He did not have any acute intracranial hemorrhage. He does have bilateral thalamic age indeterminate infarcts and extensive sequelae of chronic microvascular ischemia. The patient underwent MRI of the brain, revealing microhemorrhage versus a tiny cavernoma. He is currently being followed by Neurology. I was asked to see him in consultation as a result of his x-ray. There was concern about the possibility of aspiration. The patient is awake, but knows his name. He is not alert to place and time. He is currently receiving IV cefepime. He is on room air. His O2 saturation was 96%. He has been afebrile. Blood pressure has been stable. PAST MEDICAL HISTORY: Otherwise remarkable for hypertension, previous DVT, hepatitis C, thrombocytopenia, gout, HIV, urinary incontinence. PAST SURGICAL HISTORY: Unknown. ALLERGIES: LISTED TO PENICILLIN, HYDROCODONE. MEDICATIONS: List was reviewed. REVIEW OF SYSTEMS: Unobtainable secondary to the patient's condition. PHYSICAL EXAMINATION: VITAL SIGNS: Stable. O2 saturation was greater than 92%. The patient did not appear to be in any respiratory distress. LUNGS: Anteriorly were clear. CARDIOVASCULAR: Regular rate and rhythm with S1, S2, no S3. ABDOMEN: Obese. EXTREMITIES: No clubbing or cyanosis. Minimal edema. NEUROLOGIC: The patient was able to squeeze my hand on the right side, but weak on the left. Detailed neuro exam was not performed. LABORATORY DATA: Reviewed. Arterial blood gas: pH of 7.39, PaCO2 of 34, pO2 of 81. White count was normal. INR was 1.3. Electrolytes were deranged. BUN and creatinine were elevated. X-ray as indicated above. IMPRESSION: 1. Abnormal x-ray compatible with aspiration pneumonia. 2. Cerebrovascular accident per Neurology. 3. History of human immunodeficiency virus positive. 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 5. Renal insufficiency. 6. Hypertension. PLAN: 1. Continue current IV antibiotics. 2. Follow Neurology input. 3. Nephrology has been consulted, follow Nephrology input. I do appreciate the privilege in sharing in the patient's care. ANGIE SANDY MD DR: AR/emory JOB#: [id number] / [id number]
[2020-08-30 15:00] VITALS: BP 134/78
--- NOTE | 2020-08-30 15:48 | CONS ---
DATE OF CONSULTATION: 08/30/2020 REFERRING PHYSICIAN: Dr. Oliveros. REASON FOR CONSULTATION: HIV. HISTORY OF PRESENT ILLNESS: A 64-year-old male with history of HIV, on Symtuza and Tivicay, unknown CD4 and viral load status, was brought into the Emergency Room on 08/28/2020 with altered mental status. The patient had similar episode when he was admitted at after he fell off the lawnmower about 6 months ago and went downhill, with declining mental status. The patient had extensive workup done per discussion with Dr. Mccracken Neurology including MRI and LP, was treated empirically for syphilis and other infection, workup was negative except for possible ventriculomegaly. The patient underwent CT head, which showed no acute intracranial hemorrhage, bilateral thalamic age indeterminate infarcts, extensive sequelae of chronic microvascular ischemia, mildly dilated lateral and third ventricles, may relate to central brain parenchymal volume loss, although can be seen with normal pressure hydrocephalus in an appropriate setting. Chest x-ray revealed patchy infiltrates opacities, left lung base, may represent consolidation such as pneumonia. Brain MRI showed a foci of diffusion signal hyperintensity involving the left blake radiata, left centrum semiovale and right occipital lobe suggesting acute lacunar infarcts. There is mild associated cytotoxic edema without mass effect or hemorrhage, focal susceptibility artifact scattered throughout the brain parenchyma suggesting microhemorrhages versus tiny cavernoma moderate to advanced generalized cerebral volume loss, moderate bilateral hippocampal volume loss. There is T2-FLAIR signal, hyperintense foci in the angie, periventricular and subcortical white matter areas of confluence most suggestive of advanced chronic small vessel ischemic changes, decrease of white matter changes are nonspecific and progressive multifocal encephalopathy remains a consideration. Carotid Doppler showed less than 50% stenosis of the carotid arteries. Blood cultures were done, which are negative. The patient currently is on cefepime. ID consultation has been requested for antibiotic management. The patient has been n.p.o., so has not been on Symtuza or Tivicay per discussion with nursing staff. PAST MEDICAL HISTORY: Hypertension, history of DVT, history of hepatitis B, C, HIV, gout, urinary incontinence, history of dementia. REVIEW OF SYSTEMS: Unable to obtain due to the patient's mental status. FAMILY HISTORY: Not obtainable. SOCIAL HISTORY: Not obtainable. CURRENT MEDICATIONS: Cefepime. Other medications reviewed in medication list. ALLERGIES: DOCUMENTED PENICILLIN, UNKNOWN REACTION, HYDROCODONE, UNKNOWN REACTION. PHYSICAL EXAMINATION: VITAL SIGNS: Temperature 98, pulse 77, respiratory rate 20, blood pressure 124/82, oxygen saturation 96% on room air. GENERAL: Well-developed, well-nourished male in no acute distress. Does not respond to any questions. HEENT: Normocephalic, atraumatic, anicteric. Does not open mouth. NECK: Supple, no JVD, no lymphadenopathy. LUNGS: Clear bilaterally. Decreased breath sounds at the bases. HEART: S1, S2. No gallops or murmurs. ABDOMEN: Obese, soft, bowel sounds present, nontender, nondistended. GENITOURINARY: No Calvert in place. DERMATOLOGIC: No generalized rash. NEUROLOGIC: Confused. PSYCHIATRIC: Unable to assess. MUSCULOSKELETAL: No joint swelling or decrease in range of motion noted. LABORATORY DATA: WBC 7.5, hemoglobin 15.0, hematocrit 43.9, platelets 220. Sodium 127, potassium 3.6, chloride 110, bicarbonate 28, BUN 21, creatinine 1.4, was 3.4 and glucose 79, AST 93, otherwise LFTs are normal. Ammonia less than 10. TSH 2.6. Troponin normal. UA negative. UDS negative. INR 1.3. MICRO: Blood culture are negative so far. DIAGNOSTICS: CT head as above. Chest x-ray as above. Brain MRI as above. Carotid Doppler as above. IMPRESSION: 1. Human immunodeficiency virus, on Symtuza and Tivicay,POA,last CD4 and hiv vl unknown 2. Encephalopathy present on admission. MRI with acute lacunar strokes. History of extensive neurologic work-up done at [facility] in the recent past per discussion with Dr. Mccracken 3 progressive dementia 4. Hyponatremia.Acute kidney injury. 5. Possible aspiration pneumonia. 6. Hypertension. 7. History of benign prostatic hypertrophy. 8. History of hepatitis C. 9. History of deep venous thrombosis. 10. History of hypertension/hyperlipidemia 11. History of gout. 12. History of depression. 13. History of syphilis. 14. History of ALLERGIES TO PENICILLIN, UNKNOWN REACTION. RECOMMENDATIONS: 1. Continue cefepime for now. 2. Discussed with ID coordinator to fax ID evaluation during last hospitalization at [facility]. 3. Restart Symtuza and Tivicay, which the patient has been on prior to admission. 4. We will obtain a cryptococcal antigen, RPR. 5. Follow up labs and cultures. 6. Maintain aspiration precaution. 7. Continue supportive care. 8. Overall prognosis is poor. Discussed with RN. Discussed with Dr. Mccracken. Thank you for allowing me to participate in this patient's care. If you have any questions, do not hesitate to contact me. ROMMEL PIMENTEL MD DR: SHARAN/emory JOB#: [id number] / [id number] YURIY
--- NOTE | 2020-08-30 16:21 | NUR ---
SW following for discharge planning. Spoke with RN and reviewed chart. [facility]. SW following.
[2020-08-30 19:00] VITALS: BP 111/68
[2020-08-30 23:00] VITALS: BP 130/87
[2020-08-31 03:02] VITALS: BP 119/77
[2020-08-31 07:00] VITALS: BP 138/85
--- NOTE | 2020-08-31 08:46 | PDOC ---
PROGRESS NOTES Date of Service: DATE: 08/31/20 TIME: 08:46 Chief Complaint Chief Complaint VTE Prophylaxis Ordered VTE Prophylaxis Devices: Yes VTE Pharmacological Prophylaxi: Yes Assessment/Plan Assessment/Plan Impression: 1. No acute intracranial hemorrhage. 2. Bilateral thalamic age-indeterminate infarcts. , ACUTE PLAN MRI as noted 1- 13 Foci of diffusion signal hyperintensity involving the left blake radiata, left centrum semiovale and right occipital lobe suggests acute lacunar infarcts.,ACUTE There is mild associated cytotoxic edema without mass effect or hemorrhage. Foci susceptibility artifact scattered throughout the brain parenchyma suggests microhemorrhages versus tiny cavernoma. Moderate to advanced generalized cerebral volume loss. Moderate bilateral hippocampal volume loss. 3. Extensive sequelae of chronic microvascular ischemia. 4. Mildly dilated lateral third ventricles, may relate to central brain parenchymal volume loss POSSIBLE normal pressure hydrocephalus 5. Patchy opacities left lung base may represent consolidative process such as pneumonia., aspiration risk 6. WANG 7.Overall prognosis is poor Return to long term when medically stable Lovenox, resume Eliquis if able to take orally PLAN ADMIT MRI HEAD NEUROLOGY CONSULT emperic iv antibiotics dvt prophylaxis NEPHROLOGY CONSULT iv fluid support ID CONSULT 08/31 REMAINS TOTAL LIFT 26 min pt exam, chart review, > 50% of time spent with exam, chart review, pt care coordination History of Present Illness History of Present Illness Identification/Chief Complaint Chief Complaint AMS, CODE STROKE IN ER History of Present Illness History of Present Illness seen in er with AMS, 64 year old male coming in for long term for altered mental status. Per the report he is normally GCS 15 awake and alert. Last time he was seen was at dinner at 1800 where he was acting normally. When staff went to put him to bed about 30 minutes prior to arrival they noticed he was altered and not following commands. Per nursing facility documentation he is on Eliquis for DVTs. He has a history of metabolic encephalopathy, also has hepatitis C virus. No known falls or evidence of trauma. On arrival patient is awake but not following commands, some tracking of gaze. Patient not cooperative with NIH score. Picking his arms appears resistance but no cooperative effort and exam. cr elevated at 3 Code stroke activated on patient's arrival, no acute bleed or stroke CT. Discussed with neurology, Dr. Mccracken, not a TPA candidate secondary to Eliquis. Requesting CTA be done prior to admission HIV positive. Patient had several MRI studies, 2 lumbar punctures, and full evaluation including syphilis serologies, which were negative. at [facility] he was treated with antibiotics for syphilis and other infections, but nothing came with the work-up except for possible ventriculomegaly. A [employer] shunt was discussed, but the doctors did not think that normal pressure hydrocephalus was an issue. Review of Systems: Review of Systems: Unable to obtain due to patient's mental status Past Medical History Cardiovascular: HTN, Hyperlipidemia, Other (DVT) CENTRAL NERVOUS SYSTEM: Other (met enceph) Hepatobiliary: Hep A/B/C (C) Psych: Depression, Other (thrombocythemia) Rheumatologic: Gout Infectious disease: HIV Renal/: Urinary Incontinence Family History Family History: Hypertension Social History Smoke: No ALCOHOL: none Drugs: None Current Problem List Problem List Problems Medical Problems: (1) AMS (altered mental status) Status: Acute (2) HCAP (healthcare-associated pneumonia) Status: Acute Vitals Vitals Vital Signs Date Time Temp Pulse Resp B/P (MAP) Pulse Ox O2 Delivery O2 Flow Rate FiO2 08/31/20 03:02 97.9 70 20 119/77 (91) 98 Room Air 97.9 Physical Exam General: Alert, Cooperative, No acute distress, Other (ENCEPHALOPATHIC) Heart: Regular rate Abdomen: Normal bowel sounds, Soft, No tenderness Extremities: No cyanosis Skin: No breakdown Labs LABS PATIENT: DARREN KENT ACCOUNT: [id number] : 1955 LOCATION: [address] [place] [address] AGE: 64 SEX: M EXAM STATUS: ADM IN ORD. PHYSICIAN: JOSE CARLOS JOHNSON MD REASON: CVA PROCEDURE: DOPPLER CAROTID BILAT US DPLX CAROTID BILAT History: Reason: CVA / Spl. Instructions: / History: Multiple grayscale, color, and duplex spectral analysis waveform sonographic images were acquired of the carotid, subclavian, and vertebral arteries. Comparison: None Findings: RIGHT SIDE: Peak systolic flow velocity of the distal CCA is 64 cm/sec. Peak systolic flow velocity of the ICA is 66 cm/sec. The ICA/CCA ratio is 1.0. Peak end diastolic flow velocity of the ICA is 18 cm/sec. The peak systolic velocity of the ECA is 71 cm/sec. Atherosclerotic plaque formation is identified. LEFT SIDE: Peak systolic flow velocity of the distal CCA is 65 cm/sec. Peak systolic flow velocity of the ICA is 68 cm/sec. The ICA/CCA ratio is 1.0. Peak end diastolic flow velocity of the ICA is 24 cm/sec. The ECA is not visualized Atherosclerotic plaque formation is identified. Vertebral arteries: Bilateral vertebral arteries demonstrate antegrade flow. Impression: Atherosclerosis of the cervical ICAs with velocities consistent with less than 50 percent stenosis. PQRS Compliance Statement - Stenosis calculations for carotid ultrasound studies are derived from validated velocity criteria which are known to correlate with the NASCET methodology. Electronically signed by: Jacob Villanueva MD (08/30/2020 11:20 AM) [id number] Laboratory Tests Test 08/30/20 08:50 White Blood Count 7.5 x10^3/uL (4.0-11.0) Red Blood Count 4.44 x10^6/uL (4.30-5.70) Hemoglobin 15.0 g/dL (13.0-17.5) Hematocrit 43.9 % (39.0-53.0) Mean Corpuscular Volume 99 fL (79-100) Mean Corpuscular Hemoglobin 34 pg (25-35) Mean Corpuscular Hemoglobin Concent 34 g/dL (31-37) Red Cell Distribution Width 15.4 % (11.5-14.5) Platelet Count 220 x10^3/uL (140-400) Neutrophils (%) (Auto) 54 % (31-73) Lymphocytes (%) (Auto) 31 % (24-48) Monocytes (%) (Auto) 12 % (0-9) Eosinophils (%) (Auto) 2 % (0-3) Basophils (%) (Auto) 1 % (0-3) Neutrophils # (Auto) 4.0 x10^3/uL (1.8-7.7) Lymphocytes # (Auto) 2.3 x10^3/uL (1.0-4.8) Monocytes # (Auto) 0.9 x10^3/uL (0.0-1.1) Eosinophils # (Auto) 0.1 x10^3/uL (0.0-0.7) Basophils # (Auto) 0.1 x10^3/uL (0.0-0.2) Sodium Level 147 mmol/L (136-145) Potassium Level 3.6 mmol/L (3.5-5.1) Chloride Level 110 mmol/L (98-107) Carbon Dioxide Level 28 mmol/L (21-32) Anion Gap 9 (6-14) Blood Urea Nitrogen 21 mg/dL (8-26) Creatinine 1.4 mg/dL (0.7-1.3) Estimated GFR (Cockcroft-Gault) 61.4 BUN/Creatinine Ratio 15 (6-20) Glucose Level 79 mg/dL (70-99) Calcium Level 9.8 mg/dL (8.5-10.1) Total Bilirubin 0.9 mg/dL (0.2-1.0) Aspartate Amino Transf (AST/SGOT) 93 U/L (15-37) Alanine Aminotransferase (ALT/SGPT) 41 U/L (16-63) Alkaline Phosphatase 74 U/L (46-116) Total Protein 7.4 g/dL (6.4-8.2) Albumin 3.1 g/dL (3.4-5.0) Albumin/Globulin Ratio 0.7 (1.0-1.7) Assessment and Plan Assessmemt and Plan Problems Medical Problems: (1) AMS (altered mental status) Status: Acute (2) HCAP (healthcare-associated pneumonia) Status: Acute Comment Review of Relevant I have reviewed the following items zander (where applicable) has been applied. Labs Laboratory Tests Test 08/30/20 02:00 08/30/20 02:03 08/30/20 08:50 Urine Opiates Screen Neg (NEG) Urine Methadone Screen Neg (NEG) Urine Barbiturates Neg (NEG) Urine Phencyclidine Screen Neg (NEG) Urine Amphetamine/Methamphetamine Neg (NEG) Urine Benzodiazepines Screen Neg (NEG) Urine Cocaine Screen Neg (NEG) Urine Cannabinoids Screen Neg (NEG) Urine Ethyl Alcohol Neg (NEG) Urine Collection Type Unknown Urine Color Yellow Urine Clarity Clear Urine pH 6.0 (<5.0-8.0) Urine Specific [place] 1.010 (1.000-1.030) Urine Protein Negative mg/dL (NEG-TRACE) Urine Glucose (UA) Negative mg/dL (NEG) Urine Ketones (Stick) Negative mg/dL (NEG) Urine Blood Negative (NEG) Urine Nitrite Negative (NEG) Urine Bilirubin Negative (NEG) Urine Urobilinogen Dipstick 0.2 mg/dL (0.2 mg/dL) Urine Leukocyte Esterase Negative (NEG) Urine RBC Occ /HPF (0-2) Urine WBC Occ /HPF (0-4) Urine Squamous Epithelial Cells Occ /LPF Urine Bacteria 0 /HPF (0-FEW) Urine Hyaline Casts Occasional /HPF Urine Mucus Slight /LPF White Blood Count 7.5 x10^3/uL (4.0-11.0) Red Blood Count 4.44 x10^6/uL (4.30-5.70) Hemoglobin 15.0 g/dL (13.0-17.5) Hematocrit 43.9 % (39.0-53.0) Mean Corpuscular Volume 99 fL (79-100) Mean Corpuscular Hemoglobin 34 pg (25-35) Mean Corpuscular Hemoglobin Concent 34 g/dL (31-37) Red Cell Distribution Width 15.4 % (11.5-14.5) Platelet Count 220 x10^3/uL (140-400) Neutrophils (%) (Auto) 54 % (31-73) Lymphocytes (%) (Auto) 31 % (24-48) Monocytes (%) (Auto) 12 % (0-9) Eosinophils (%) (Auto) 2 % (0-3) Basophils (%) (Auto) 1 % (0-3) Neutrophils # (Auto) 4.0 x10^3/uL (1.8-7.7) Lymphocytes # (Auto) 2.3 x10^3/uL (1.0-4.8) Monocytes # (Auto) 0.9 x10^3/uL (0.0-1.1) Eosinophils # (Auto) 0.1 x10^3/uL (0.0-0.7) Basophils # (Auto) 0.1 x10^3/uL (0.0-0.2) Sodium Level 147 mmol/L (136-145) Potassium Level 3.6 mmol/L (3.5-5.1) Chloride Level 110 mmol/L (98-107) Carbon Dioxide Level 28 mmol/L (21-32) Anion Gap 9 (6-14) Blood Urea Nitrogen 21 mg/dL (8-26) Creatinine 1.4 mg/dL (0.7-1.3) Estimated GFR (Cockcroft-Gault) 61.4 BUN/Creatinine Ratio 15 (6-20) Glucose Level 79 mg/dL (70-99) Calcium Level 9.8 mg/dL (8.5-10.1) Total Bilirubin 0.9 mg/dL (0.2-1.0) Aspartate Amino Transf (AST/SGOT) 93 U/L (15-37) Alanine Aminotransferase (ALT/SGPT) 41 U/L (16-63) Alkaline Phosphatase 74 U/L (46-116) Total Protein 7.4 g/dL (6.4-8.2) Albumin 3.1 g/dL (3.4-5.0) Albumin/Globulin Ratio 0.7 (1.0-1.7) Laboratory Tests Test 08/30/20 08:50 White Blood Count 7.5 x10^3/uL (4.0-11.0) Red Blood Count 4.44 x10^6/uL (4.30-5.70) Hemoglobin 15.0 g/dL (13.0-17.5) Hematocrit 43.9 % (39.0-53.0) Mean Corpuscular Volume 99 fL (79-100) Mean Corpuscular Hemoglobin 34 pg (25-35) Mean Corpuscular Hemoglobin Concent 34 g/dL (31-37) Red Cell Distribution Width 15.4 % (11.5-14.5) Platelet Count 220 x10^3/uL (140-400) Neutrophils (%) (Auto) 54 % (31-73) Lymphocytes (%) (Auto) 31 % (24-48) Monocytes (%) (Auto) 12 % (0-9) Eosinophils (%) (Auto) 2 % (0-3) Basophils (%) (Auto) 1 % (0-3) Neutrophils # (Auto) 4.0 x10^3/uL (1.8-7.7) Lymphocytes # (Auto) 2.3 x10^3/uL (1.0-4.8) Monocytes # (Auto) 0.9 x10^3/uL (0.0-1.1) Eosinophils # (Auto) 0.1 x10^3/uL (0.0-0.7) Basophils # (Auto) 0.1 x10^3/uL (0.0-0.2) Sodium Level 147 mmol/L (136-145) Potassium Level 3.6 mmol/L (3.5-5.1) Chloride Level 110 mmol/L (98-107) Carbon Dioxide Level 28 mmol/L (21-32) Anion Gap 9 (6-14) Blood Urea Nitrogen 21 mg/dL (8-26) Creatinine 1.4 mg/dL (0.7-1.3) Estimated GFR (Cockcroft-Gault) 61.4 BUN/Creatinine Ratio 15 (6-20) Glucose Level 79 mg/dL (70-99) Calcium Level 9.8 mg/dL (8.5-10.1) Total Bilirubin 0.9 mg/dL (0.2-1.0) Aspartate Amino Transf (AST/SGOT) 93 U/L (15-37) Alanine Aminotransferase (ALT/SGPT) 41 U/L (16-63) Alkaline Phosphatase 74 U/L (46-116) Total Protein 7.4 g/dL (6.4-8.2) Albumin 3.1 g/dL (3.4-5.0) Albumin/Globulin Ratio 0.7 (1.0-1.7) Microbiology 08/29/20 Blood Culture - Preliminary, Resulted NO GROWTH AFTER 1 DAY Medications Current Medications Sodium Chloride 1,000 ml @ 100 mls/hr Q10H IV Last administered on 08/29/20at 09:08; Start 08/28/20 at 22:15; Stop 08/29/20 at 18:11; Status DC Methylprednisolone Sodium Succinate (SOLU-Medrol 125MG VIAL) 125 mg 1X ONCE IV ; Start 08/28/20 at 23:55; Stop 08/29/20 at 00:12; Status DC Cefepime HCl (Maxipime) 1 gm 1X ONCE IVP Last administered on 08/29/20at 02:45; Start 08/29/20 at 02:30; Stop 08/29/20 at 02:32; Status DC Vancomycin HCl 1.75 gm/Sodium Chloride 500 ml @ 250 mls/hr 1X ONCE IV Last administered on 08/29/20at 02:48; Start 08/29/20 at 02:30; Stop 08/29/20 at 04:29 ; Status DC Cefepime HCl (Maxipime) 1 gm Q12HR IVP Last administered on 08/30/20at 21:50; Start 08/29/20 at 21:00 Sodium Chloride (Normal Saline Flush) 3 ml QSHIFT PRN IV AFTER MEDS AND BLOOD DRAWS; Start 08/29/20 at 14:45 Sodium Chloride 1,000 ml @ 100 mls/hr Q10H IV ; Start 08/29/20 at 14:45; Stop 08/29/20 at 18:11; Status DC Ondansetron HCl (Zofran) 4 mg PRN Q4HRS PRN IV NAUSEA/VOMITING; Start 08/29/20 at 14:45 Acetaminophen (Tylenol Supp) 650 mg PRN Q4HRS PRN NE TEMP OVER 100.4F OR MILD PAIN; Start 08/29/20 at 14:45 Sodium Monofluorophosphate (Fleet Adult) 133 ml PRN DAILY PRN NE CONSTIPATION; Start 08/29/20 at 14:45 Albuterol Sulfate (Ventolin Neb Soln) 2.5 mg PRN Q4HRS PRN NEB SHORTNESS OF BREATH; Start 08/29/20 at 14:45 Guaifenesin (Robitussin) 200 mg PRN Q4HRS PRN PO COUGH; Start 08/29/20 at 14:45 Sodium Chloride 1,000 ml @ 100 mls/hr Q10H IV Last administered on 08/30/20at 15:16; Start 08/29/20 at 18:00 Acetaminophen (Tylenol) 650 mg PRN Q6HRS PRN PO MILD PAIN / TEMP > 100.3'F; Start 08/30/20 at 09:30 Enoxaparin Sodium (Lovenox 40mg Syringe) 30 mg Q24H SQ ; Start 08/30/20 at 13:00; Status Cancel Enoxaparin Sodium (Lovenox 40mg Syringe) 40 mg Q24H SQ ; Start 08/30/20 at 14:09; Status Cancel Enoxaparin Sodium (Lovenox 40mg Syringe) 40 mg Q24H SQ Last administered on 08/30/20at 15:17; Start 08/30/20 at 15:00 Active Scripts Active Reported Multi-Vitamin Daily (Multivitamin) 1 Each Tablet 1 Tab PO DAILY 30 Days Tramadol Hcl 50 Mg Tablet 50 Mg PO Q6HRS PRN Tivicay (Dolutegravir Sodium) 50 Mg Tablet 1 Tab PO DAILY 30 Days Micardis (Telmisartan) 40 Mg Tablet 1 Tab PO DAILY Flomax (Tamsulosin Hcl) 0.4 Mg Cap.er.24h 1 Cap PO DAILY Symtuza [phone] mg Tab (Darunavir/Cob/Emtri/Tenof Alaf) 1 Each Tablet 1 Each PO DAILY Colcrys (Colchicine) 0.6 Mg Tablet 1 Tab PO DAILY 30 Days Betamethasone Dipropionate 15 Gm Cream..g. 1 Antoine TP BID Eliquis (Apixaban) 2.5 Mg Tablet 2.5 Mg PO BID Amlodipine Besylate 10 Mg Tablet 10 Mg PO DAILY Vitals/I & O Vital Sign - Last 24 Hours 08/30/20 08/30/20 08/30/20 08/30/20 11:00 15:00 19:00 20:20 Temp 98.1 97.9 98.1 98.1 97.9 98.1 Pulse 75 76 72 Resp 20 20 20 B/P (MAP) 146/77 (100) 134/78 (96) 111/68 (82) Pulse Ox 97 98 97 O2 Delivery Room Air Room Air Room Air Room Air 08/30/20 08/31/20 23:00 03:02 Temp 98.1 97.9 98.1 97.9 Pulse 75 70 Resp 18 20 B/P (MAP) 130/87 (101) 119/77 (91) Pulse Ox 98 98 O2 Delivery Room Air Room Air Justicifation of Admission Dx: Justifications for Admission: Justification of Admission Dx: Yes Stroke - Ischemic: Stroke-Ischemic EVE DOWNEY MD Aug 31, 2020 08:46
--- NOTE | 2020-08-31 08:52 | PDOC ---
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, [facility] did a full work-up for other causes, including a 2-week penicillin treatment for neurosyphilis as he has a positive RPR, negative CSF VDRL Renal injury Plan Check swallowing again today, consider for PEG if still having dysphagia versus comfort care Stroke rehabilitation Overall prognosis is poor Return to care home when medically stable Lovenox, resume Eliquis if able to take orally Risks outweigh the benefits of starting aspirin in combination with Eliquis Await echocardiogram Subjective No complaints Objective Vital Signs Date Time Temp Pulse Resp B/P (MAP) Pulse Ox O2 Delivery O2 Flow Rate FiO2 08/31/20 03:02 97.9 70 20 119/77 (91) 98 Room Air 97.9 Intake and Output 08/31/20 07:00 # Voids 3 PHYSICAL EXAM Alert. Can tell me his name, smiles, follows a few simple commands PERRL. EOMI. CN: no focal findings. Muscle tone: normal. Muscle strength: 3/5 DTR: 2+ Plantar reflex: Flexor Gait: not examined in bed. Sensory exam: no abnormal findings. No cerebellar signs elicited. Review of Relevant I have reviewed the following items zander (where applicable) has been applied. Labs Laboratory Tests Test 08/30/20 02:00 08/30/20 02:03 08/30/20 08:50 Urine Opiates Screen Neg (NEG) Urine Methadone Screen Neg (NEG) Urine Barbiturates Neg (NEG) Urine Phencyclidine Screen Neg (NEG) Urine Amphetamine/Methamphetamine Neg (NEG) Urine Benzodiazepines Screen Neg (NEG) Urine Cocaine Screen Neg (NEG) Urine Cannabinoids Screen Neg (NEG) Urine Ethyl Alcohol Neg (NEG) Urine Collection Type Unknown Urine Color Yellow Urine Clarity Clear Urine pH 6.0 (<5.0-8.0) Urine Specific [place] 1.010 (1.000-1.030) Urine Protein Negative mg/dL (NEG-TRACE) Urine Glucose (UA) Negative mg/dL (NEG) Urine Ketones (Stick) Negative mg/dL (NEG) Urine Blood Negative (NEG) Urine Nitrite Negative (NEG) Urine Bilirubin Negative (NEG) Urine Urobilinogen Dipstick 0.2 mg/dL (0.2 mg/dL) Urine Leukocyte Esterase Negative (NEG) Urine RBC Occ /HPF (0-2) Urine WBC Occ /HPF (0-4) Urine Squamous Epithelial Cells Occ /LPF Urine Bacteria 0 /HPF (0-FEW) Urine Hyaline Casts Occasional /HPF Urine Mucus Slight /LPF White Blood Count 7.5 x10^3/uL (4.0-11.0) Red Blood Count 4.44 x10^6/uL (4.30-5.70) Hemoglobin 15.0 g/dL (13.0-17.5) Hematocrit 43.9 % (39.0-53.0) Mean Corpuscular Volume 99 fL (79-100) Mean Corpuscular Hemoglobin 34 pg (25-35) Mean Corpuscular Hemoglobin Concent 34 g/dL (31-37) Red Cell Distribution Width 15.4 % (11.5-14.5) Platelet Count 220 x10^3/uL (140-400) Neutrophils (%) (Auto) 54 % (31-73) Lymphocytes (%) (Auto) 31 % (24-48) Monocytes (%) (Auto) 12 % (0-9) Eosinophils (%) (Auto) 2 % (0-3) Basophils (%) (Auto) 1 % (0-3) Neutrophils # (Auto) 4.0 x10^3/uL (1.8-7.7) Lymphocytes # (Auto) 2.3 x10^3/uL (1.0-4.8) Monocytes # (Auto) 0.9 x10^3/uL (0.0-1.1) Eosinophils # (Auto) 0.1 x10^3/uL (0.0-0.7) Basophils # (Auto) 0.1 x10^3/uL (0.0-0.2) Sodium Level 147 mmol/L (136-145) Potassium Level 3.6 mmol/L (3.5-5.1) Chloride Level 110 mmol/L (98-107) Carbon Dioxide Level 28 mmol/L (21-32) Anion Gap 9 (6-14) Blood Urea Nitrogen 21 mg/dL (8-26) Creatinine 1.4 mg/dL (0.7-1.3) Estimated GFR (Cockcroft-Gault) 61.4 BUN/Creatinine Ratio 15 (6-20) Glucose Level 79 mg/dL (70-99) Calcium Level 9.8 mg/dL (8.5-10.1) Total Bilirubin 0.9 mg/dL (0.2-1.0) Aspartate Amino Transf (AST/SGOT) 93 U/L (15-37) Alanine Aminotransferase (ALT/SGPT) 41 U/L (16-63) Alkaline Phosphatase 74 U/L (46-116) Total Protein 7.4 g/dL (6.4-8.2) Albumin 3.1 g/dL (3.4-5.0) Albumin/Globulin Ratio 0.7 (1.0-1.7) Laboratory Tests Test 08/30/20 08:50 White Blood Count 7.5 x10^3/uL (4.0-11.0) Red Blood Count 4.44 x10^6/uL (4.30-5.70) Hemoglobin 15.0 g/dL (13.0-17.5) Hematocrit 43.9 % (39.0-53.0) Mean Corpuscular Volume 99 fL (79-100) Mean Corpuscular Hemoglobin 34 pg (25-35) Mean Corpuscular Hemoglobin Concent 34 g/dL (31-37) Red Cell Distribution Width 15.4 % (11.5-14.5) Platelet Count 220 x10^3/uL (140-400) Neutrophils (%) (Auto) 54 % (31-73) Lymphocytes (%) (Auto) 31 % (24-48) Monocytes (%) (Auto) 12 % (0-9) Eosinophils (%) (Auto) 2 % (0-3) Basophils (%) (Auto) 1 % (0-3) Neutrophils # (Auto) 4.0 x10^3/uL (1.8-7.7) Lymphocytes # (Auto) 2.3 x10^3/uL (1.0-4.8) Monocytes # (Auto) 0.9 x10^3/uL (0.0-1.1) Eosinophils # (Auto) 0.1 x10^3/uL (0.0-0.7) Basophils # (Auto) 0.1 x10^3/uL (0.0-0.2) Sodium Level 147 mmol/L (136-145) Potassium Level 3.6 mmol/L (3.5-5.1) Chloride Level 110 mmol/L (98-107) Carbon Dioxide Level 28 mmol/L (21-32) Anion Gap 9 (6-14) Blood Urea Nitrogen 21 mg/dL (8-26) Creatinine 1.4 mg/dL (0.7-1.3) Estimated GFR (Cockcroft-Gault) 61.4 BUN/Creatinine Ratio 15 (6-20) Glucose Level 79 mg/dL (70-99) Calcium Level 9.8 mg/dL (8.5-10.1) Total Bilirubin 0.9 mg/dL (0.2-1.0) Aspartate Amino Transf (AST/SGOT) 93 U/L (15-37) Alanine Aminotransferase (ALT/SGPT) 41 U/L (16-63) Alkaline Phosphatase 74 U/L (46-116) Total Protein 7.4 g/dL (6.4-8.2) Albumin 3.1 g/dL (3.4-5.0) Albumin/Globulin Ratio 0.7 (1.0-1.7) Microbiology 08/29/20 Blood Culture - Preliminary, Resulted NO GROWTH AFTER 1 DAY Medications Current Medications Sodium Chloride 1,000 ml @ 100 mls/hr Q10H IV Last administered on 08/29/20at 09:08; Start 08/28/20 at 22:15; Stop 08/29/20 at 18:11; Status DC Methylprednisolone Sodium Succinate (SOLU-Medrol 125MG VIAL) 125 mg 1X ONCE IV ; Start 08/28/20 at 23:55; Stop 08/29/20 at 00:12; Status DC Cefepime HCl (Maxipime) 1 gm 1X ONCE IVP Last administered on 08/29/20at 02:45; Start 08/29/20 at 02:30; Stop 08/29/20 at 02:32; Status DC Vancomycin HCl 1.75 gm/Sodium Chloride 500 ml @ 250 mls/hr 1X ONCE IV Last administered on 08/29/20at 02:48; Start 08/29/20 at 02:30; Stop 08/29/20 at 04 :29; Status DC Cefepime HCl (Maxipime) 1 gm Q12HR IVP Last administered on 08/30/20at 21:50; Start 08/29/20 at 21:00 Sodium Chloride (Normal Saline Flush) 3 ml QSHIFT PRN IV AFTER MEDS AND BLOOD DRAWS; Start 08/29/20 at 14:45 Sodium Chloride 1,000 ml @ 100 mls/hr Q10H IV ; Start 08/29/20 at 14:45; Stop 08/29/20 at 18:11; Status DC Ondansetron HCl (Zofran) 4 mg PRN Q4HRS PRN IV NAUSEA/VOMITING; Start 08/29/20 at 14:45 Acetaminophen (Tylenol Supp) 650 mg PRN Q4HRS PRN [place] TEMP OVER 100.4F OR MILD PAIN; Start 08/29/20 at 14:45 Sodium Monofluorophosphate (Fleet Adult) 133 ml PRN DAILY PRN [place] CONSTIPATION; Start 08/29/20 at 14:45 Albuterol Sulfate (Ventolin Neb Soln) 2.5 mg PRN Q4HRS PRN NEB SHORTNESS OF BREATH; Start 08/29/20 at 14:45 Guaifenesin (Robitussin) 200 mg PRN Q4HRS PRN PO COUGH; Start 08/29/20 at 14:45 Sodium Chloride 1,000 ml @ 100 mls/hr Q10H IV Last administered on 08/30/20at 15:16; Start 08/29/20 at 18:00 Acetaminophen (Tylenol) 650 mg PRN Q6HRS PRN PO MILD PAIN / TEMP > 100.3'F; Start 08/30/20 at 09:30 Enoxaparin Sodium (Lovenox 40mg Syringe) 30 mg Q24H SQ ; Start 08/30/20 at 13:00; Status Cancel Enoxaparin Sodium (Lovenox 40mg Syringe) 40 mg Q24H SQ ; Start 08/30/20 at 14:09; Status Cancel Enoxaparin Sodium (Lovenox 40mg Syringe) 40 mg Q24H SQ Last administered on 08/30/20at 15:17; Start 08/30/20 at 15:00 Active Scripts Active Reported Multi-Vitamin Daily (Multivitamin) 1 Each Tablet 1 Tab PO DAILY 30 Days Tramadol Hcl 50 Mg Tablet 50 Mg PO Q6HRS PRN Tivicay (Dolutegravir Sodium) 50 Mg Tablet 1 Tab PO DAILY 30 Days Micardis (Telmisartan) 40 Mg Tablet 1 Tab PO DAILY Flomax (Tamsulosin Hcl) 0.4 Mg Cap.er.24h 1 Cap PO DAILY Symtuza [id number] mg Tab (Darunavir/Cob/Emtri/Tenof Alaf) 1 Each Tablet 1 Each PO DAILY Colcrys (Colchicine) 0.6 Mg Tablet 1 Tab PO DAILY 30 Days Betamethasone Dipropionate 15 Gm Cream..g. 1 Antoine TP BID Eliquis (Apixaban) 2.5 Mg Tablet 2.5 Mg PO BID Amlodipine Besylate 10 Mg Tablet 10 Mg PO DAILY Vitals/I & O Vital Sign - Last 24 Hours 08/30/20 08/30/20 08/30/20 08/30/20 11:00 15:00 19:00 20:20 Temp 98.1 97.9 98.1 98.1 97.9 98.1 Pulse 75 76 72 Resp 20 20 20 B/P (MAP) 146/77 (100) 134/78 (96) 111/68 (82) Pulse Ox 97 98 97 O2 Delivery Room Air Room Air Room Air Room Air 08/30/20 08/31/20 23:00 03:02 Temp 98.1 97.9 98.1 97.9 Pulse 75 70 Resp 18 20 B/P (MAP) 130/87 (101) 119/77 (91) Pulse Ox 98 98 O2 Delivery Room Air Room Air Justicifation of Admission Dx: Justifications for Admission: Justification of Admission Dx: Yes Stroke - Ischemic: Stroke-Ischemic JOSE CARLOS JOHNSON MD Aug 31, 2020 08:52
[2020-08-31 08:59] LABS: BASO # 0.1 x10^3/uL (0.0-0.2); BASO % 1 % (0-3); EOS # 0.1 x10^3/uL (0.0-0.7); EOS % 2 % (0-3); HEMATOCRIT 43.1 % (39.0-53.0); HEMOGLOBIN 14.9 g/dL (13.0-17.5); LYMPH # 2.3 x10^3/uL (1.0-4.8); LYMPH % 32 % (24-48); MEAN CORPUSCULAR HEMOGLOBIN 34 pg (25-35); MEAN CORPUSCULAR HGB CONC 35 g/dL (31-37); MEAN CORPUSCULAR VOLUME 98 fL (79-100); MONO # 0.9 x10^3/uL (0.0-1.1); MONO % 13 % (0-9); NEUT # 3.7 x10^3/uL (1.8-7.7); NEUT % 51 % (31-73); PLATELET COUNT 197 x10^3/uL (140-400); RED BLOOD COUNT 4.38 x10^6/uL (4.30-5.70); RED CELL DISTRIBUTION WIDTH 14.6 % (11.5-14.5); WHITE BLOOD COUNT 7.1 x10^3/uL (4.0-11.0)
[2020-08-31 09:02] LABS: CALCIUM 9.3 mg/dL (8.5-10.1); CREATININE 1.3 mg/dL (0.7-1.3); GFR 66.8; POTASSIUM 3.3 mmol/L (3.5-5.1)
[2020-08-31 09:07] LABS: CHOLESTEROL/HDL RATIO 6.8
[2020-08-31] MEDS: CEFEPIME HCL IV Push 1 GM VIAL. IVP SCH (09:32)
[2020-08-31] MEDS: IV 1/2 NORMAL SALINE 1,000 ML IV SCH ×2 (09:33→12:56)
--- NOTE | 2020-08-31 10:54 | PDOC ---
PULMONARY PROGRESS NOTES DATE: 08/31/20 TIME: 10:51 Subjective Patient remains on room air Afebrile overnight No overnight events Vitals Vital Signs Date Time Temp Pulse Resp B/P (MAP) Pulse Ox O2 Delivery O2 Flow Rate FiO2 08/31/20 07:55 Room Air 08/31/20 07:00 97.5 74 17 138/85 (102) 98 97.5 ROS: No Nausea, No Chest Pain, No Abdominal Pain, No Increase Cough General: Alert Cardiovascular: S1, S2 Abdomen: Soft Neuro Exam: Alert Extremities: No Edema Skin: Warm, Dry Labs Laboratory Tests Test 08/30/20 02:00 08/30/20 02:03 08/30/20 08:50 08/31/20 08:05 Urine Opiates Screen Neg (NEG) Urine Methadone Screen Neg (NEG) Urine Barbiturates Neg (NEG) Urine Phencyclidine Screen Neg (NEG) Urine Amphetamine/Methamphetamine Neg (NEG) Urine Benzodiazepines Screen Neg (NEG) Urine Cocaine Screen Neg (NEG) Urine Cannabinoids Screen Neg (NEG) Urine Ethyl Alcohol Neg (NEG) Urine Collection Type Unknown Urine Color Yellow Urine Clarity Clear Urine pH 6.0 (<5.0-8.0) Urine Specific [place] 1.010 (1.000-1.030) Urine Protein Negative mg/dL (NEG-TRACE) Urine Glucose (UA) Negative mg/dL (NEG) Urine Ketones (Stick) Negative mg/dL (NEG) Urine Blood Negative (NEG) Urine Nitrite Negative (NEG) Urine Bilirubin Negative (NEG) Urine Urobilinogen Dipstick 0.2 mg/dL (0.2 mg/dL) Urine Leukocyte Esterase Negative (NEG) Urine RBC Occ /HPF (0-2) Urine WBC Occ /HPF (0-4) Urine Squamous Epithelial Cells Occ /LPF Urine Bacteria 0 /HPF (0-FEW) Urine Hyaline Casts Occasional /HPF Urine Mucus Slight /LPF White Blood Count 7.5 x10^3/uL (4.0-11.0) 7.1 x10^3/uL (4.0-11.0) Red Blood Count 4.44 x10^6/uL (4.30-5.70) 4.38 x10^6/uL (4.30-5.70) Hemoglobin 15.0 g/dL (13.0-17.5) 14.9 g/dL (13.0-17.5) Hematocrit 43.9 % (39.0-53.0) 43.1 % (39.0-53.0) Mean Corpuscular Volume 99 fL (79-100) 98 fL (79-100) Mean Corpuscular Hemoglobin 34 pg (25-35) 34 pg (25-35) Mean Corpuscular Hemoglobin Concent 34 g/dL (31-37) 35 g/dL (31-37) Red Cell Distribution Width 15.4 % (11.5-14.5) 14.6 % (11.5-14.5) Platelet Count 220 x10^3/uL (140-400) 197 x10^3/uL (140-400) Neutrophils (%) (Auto) 54 % (31-73) 51 % (31-73) Lymphocytes (%) (Auto) 31 % (24-48) 32 % (24-48) Monocytes (%) (Auto) 12 % (0-9) 13 % (0-9) Eosinophils (%) (Auto) 2 % (0-3) 2 % (0-3) Basophils (%) (Auto) 1 % (0-3) 1 % (0-3) Neutrophils # (Auto) 4.0 x10^3/uL (1.8-7.7) 3.7 x10^3/uL (1.8-7.7) Lymphocytes # (Auto) 2.3 x10^3/uL (1.0-4.8) 2.3 x10^3/uL (1.0-4.8) Monocytes # (Auto) 0.9 x10^3/uL (0.0-1.1) 0.9 x10^3/uL (0.0-1.1) Eosinophils # (Auto) 0.1 x10^3/uL (0.0-0.7) 0.1 x10^3/uL (0.0-0.7) Basophils # (Auto) 0.1 x10^3/uL (0.0-0.2) 0.1 x10^3/uL (0.0-0.2) Sodium Level 147 mmol/L (136-145) 146 mmol/L (136-145) Potassium Level 3.6 mmol/L (3.5-5.1) 3.3 mmol/L (3.5-5.1) Chloride Level 110 mmol/L (98-107) 110 mmol/L (98-107) Carbon Dioxide Level 28 mmol/L (21-32) 27 mmol/L (21-32) Anion Gap 9 (6-14) 9 (6-14) Blood Urea Nitrogen 21 mg/dL (8-26) 18 mg/dL (8-26) Creatinine 1.4 mg/dL (0.7-1.3) 1.3 mg/dL (0.7-1.3) Estimated GFR (Cockcroft-Gault) 61.4 66.8 BUN/Creatinine Ratio 15 (6-20) Glucose Level 79 mg/dL (70-99) 74 mg/dL (70-99) Calcium Level 9.8 mg/dL (8.5-10.1) 9.3 mg/dL (8.5-10.1) Total Bilirubin 0.9 mg/dL (0.2-1.0) Aspartate Amino Transf (AST/SGOT) 93 U/L (15-37) Alanine Aminotransferase (ALT/SGPT) 41 U/L (16-63) Alkaline Phosphatase 74 U/L (46-116) Total Protein 7.4 g/dL (6.4-8.2) Albumin 3.1 g/dL (3.4-5.0) Albumin/Globulin Ratio 0.7 (1.0-1.7) Triglycerides Level 151 mg/dL (0-150) Cholesterol Level 190 mg/dL (0-200) LDL Cholesterol, Calculated 132 mg/dL (0-100) VLDL Cholesterol, Calculated 30 mg/dL (0-40) Non-HDL Cholesterol Calculated 162 mg/dL (0-129) HDL Cholesterol 28 mg/dL (40-60) Cholesterol/HDL Ratio 6.8 Laboratory Tests Test 08/31/20 08:05 White Blood Count 7.1 x10^3/uL (4.0-11.0) Red Blood Count 4.38 x10^6/uL (4.30-5.70) Hemoglobin 14.9 g/dL (13.0-17.5) Hematocrit 43.1 % (39.0-53.0) Mean Corpuscular Volume 98 fL (79-100) Mean Corpuscular Hemoglobin 34 pg (25-35) Mean Corpuscular Hemoglobin Concent 35 g/dL (31-37) Red Cell Distribution Width 14.6 % (11.5-14.5) Platelet Count 197 x10^3/uL (140-400) Neutrophils (%) (Auto) 51 % (31-73) Lymphocytes (%) (Auto) 32 % (24-48) Monocytes (%) (Auto) 13 % (0-9) Eosinophils (%) (Auto) 2 % (0-3) Basophils (%) (Auto) 1 % (0-3) Neutrophils # (Auto) 3.7 x10^3/uL (1.8-7.7) Lymphocytes # (Auto) 2.3 x10^3/uL (1.0-4.8) Monocytes # (Auto) 0.9 x10^3/uL (0.0-1.1) Eosinophils # (Auto) 0.1 x10^3/uL (0.0-0.7) Basophils # (Auto) 0.1 x10^3/uL (0.0-0.2) Sodium Level 146 mmol/L (136-145) Potassium Level 3.3 mmol/L (3.5-5.1) Chloride Level 110 mmol/L (98-107) Carbon Dioxide Level 27 mmol/L (21-32) Anion Gap 9 (6-14) Blood Urea Nitrogen 18 mg/dL (8-26) Creatinine 1.3 mg/dL (0.7-1.3) Estimated GFR (Cockcroft-Gault) 66.8 Glucose Level 74 mg/dL (70-99) Calcium Level 9.3 mg/dL (8.5-10.1) Triglycerides Level 151 mg/dL (0-150) Cholesterol Level 190 mg/dL (0-200) LDL Cholesterol, Calculated 132 mg/dL (0-100) VLDL Cholesterol, Calculated 30 mg/dL (0-40) Non-HDL Cholesterol Calculated 162 mg/dL (0-129) HDL Cholesterol 28 mg/dL (40-60) Cholesterol/HDL Ratio 6.8 Medications Active Scripts Medications Dose Route/Sig Max Daily Dose Days Date Category Multi-Vitamin Daily (Multivitamin) 1 Each Tablet 1 Tab PO DAILY 30 08/29/20 Reported Tramadol Hcl 50 Mg Tablet 50 Mg PO Q6HRS PRN 08/29/20 Reported Tivicay (Dolutegravir Sodium) 50 Mg Tablet 1 Tab PO DAILY 30 08/29/20 Reported Micardis (Telmisartan) 40 Mg Tablet 1 Tab PO DAILY 08/29/20 Reported Flomax (Tamsulosin Hcl) 0.4 Mg Cap.er.24h 1 Cap PO DAILY 08/29/20 Reported Symtuza [phone] mg Tab (Darunavir/Cob/Emtri/Tenof Alaf) 1 Each Tablet 1 Each PO DAILY 08/29/20 Reported Colcrys (Colchicine) 0.6 Mg Tablet 1 Tab PO DAILY 30 08/29/20 Reported Betamethasone Dipropionate 15 Gm Cream..g. 1 Antoine TP BID 08/29/20 Reported Eliquis (Apixaban) 2.5 Mg Tablet 2.5 Mg PO BID 08/29/20 Reported Amlodipine Besylate 10 Mg Tablet 10 Mg PO DAILY 08/29/20 Reported Comments CXR IMPRESSION: Patchy opacities left lung base may represent consolidative process such as pneumonia. Impression . IMPRESSION: 1. Abnormal x-ray compatible with aspiration pneumonia. 2. Cerebrovascular accident per Neurology. 3. History of human immunodeficiency virus positive. 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 5. Renal insufficiency. 6. Hypertension. Plan . Recommendations: It is stable from a pulmonary standpoint, remains on room air Continue antibiotics per infectious disease recommendation, currently on cefepime Follow neurology recommendations Echocardiogram pending MRI showed:Left blake radiata, left centrum semiovale and right occipital lobe acute lacunar infarcts Carotid ultrasound showed:Atherosclerosis of the cervical ICAs with velocities consistent with less than 50 percent stenosis. Physical therapy/Occupational Therapy/speech therapy DVT/GI prophylaxis Discussed with ANGIE DIOR MD Aug 31, 2020 10:54
[2020-08-31 11:00] VITALS: BP 123/96
--- NOTE | 2020-08-31 11:50 | CARD ---
MR#: [id number] Date of Study: 08/31/2020 Ordering Physician: JOSE CARLOS JOHNSON, Referring Physician: JOSE CARLOS JOHNSON, Tech: Sierra New [facility] APPROVED REPORT EXAM: Two-dimensional and M-mode echocardiogram with Doppler and color Doppler. Other Information Quality : Technically LimitedHR: 71bpm Rhythm : NSRTechnically limited study due to body habitus Unable to roll INDICATION CVA/TIA RISK FACTORS Hypertension Obesity Hyperlipidemia 2D DIMENSIONS RVDd3.4 (2.9-3.5cm)Left Atrium(2D)3.4 (1.6-4.0cm) IVSd1.1 (0.7-1.1cm)LVDd5.1 (3.9-5.9cm) PWd1.2 (0.7-1.1cm)LA [id number] (18-58mL) Mitral Valve MV E Velocity0.6cm/sMV A Velocity0.8cm/s E/A Ratio0.8 TDI Lateral E' P. V0.60cm/sE/Lateral E'1.0 Lateral S' P. V0.7cm/s LEFT VENTRICLE The left ventricle is normal size. There is borderline to mild concentric left ventricular hypertroph y. The systolic function is low normal. EF 50% There is normal LV segmental wall motion. Transmitral Doppler flow pattern is Grade II-pseudonormal filling dynamics. RIGHT VENTRICLE The right ventricle is normal size. There is normal right ventricular wall thickness. The right ventr icular systolic function is normal. ATRIA The left atrium size is normal. The right atrium size is normal. The interatrial septum is intact wit h no evidence for an atrial septal defect or patent foramen ovale as noted on 2-D or Doppler imaging. AORTIC VALVE The aortic valve is thickened but opens well. Doppler and Color Flow revealed no significant aortic r egurgitation. There is no significant aortic valvular stenosis. MITRAL VALVE The mitral valve is normal in structure and function. There is no evidence of mitral valve prolapse. There is no mitral valve stenosis. Doppler and Color Flow revealed no mitral valve regurgitation note d. TRICUSPID VALVE The tricuspid valve is normal in structure and function. Doppler and color-flow analysis was performe d. There is no tricuspid valve stenosis. PULMONIC VALVE Doppler and Color Flow revealed no pulmonic valvular regurgitation. There is no pulmonic valvular matty nosis. GREAT VESSELS The aortic root is normal in size. The ascending aorta is normal in size. The IVC is normal in size a nd collapses >50% with inspiration. PERICARDIAL EFFUSION There is no evidence of significant pericardial effusion. Critical Notification Critical Value: No <Conclusion> The systolic function is low normal. EF 50% There is normal LV segmental wall motion. Signed by : Mykel Red, Electronically Approved : 08/31/2020 11:49:52
--- NOTE | 2020-08-31 12:22 | PDOC ---
Infectious Disease Note Subjective: Subjective Patient opens eyes but does not follow any commands Appears comfortable Vital Signs: Vital Signs Vital Signs Date Time Temp Pulse Resp B/P (MAP) Pulse Ox O2 Delivery O2 Flow Rate FiO2 08/31/20 07:55 Room Air 08/31/20 07:00 97.5 74 17 138/85 (102) 98 97.5 Physical Exam: PHYSICAL EXAM GENERAL: Well-developed, well-nourished male in no acute distress. Does not respond to any questions. HEENT: Normocephalic, atraumatic, anicteric. Does not open mouth. NECK: Supple, no JVD, no lymphadenopathy. LUNGS: Clear bilaterally. Decreased breath sounds at the bases. HEART: S1, S2. No gallops or murmurs. ABDOMEN: Obese, soft, bowel sounds present, nontender, nondistended. GENITOURINARY: No Calvert in place. DERMATOLOGIC: No generalized rash. NEUROLOGIC: Confused. Opens eyes but does not follow any commands PSYCHIATRIC: Unable to assess. MUSCULOSKELETAL: No joint swelling or decrease in range of motion noted. Medications: Inpatient Meds: Current Medications Medications (Trade) Dose Ordered Sig/Mary Start Time Stop Time Status Last Admin Dose Admin Acetaminophen (Tylenol Supp) 650 mg PRN Q4HRS PRN 08/29/20 14:45 Acetaminophen (Tylenol) 650 mg PRN Q6HRS PRN 08/30/20 09:30 Albuterol Sulfate (Ventolin Neb Soln) 2.5 mg PRN Q4HRS PRN 08/29/20 14:45 Apixaban (Eliquis) 2.5 mg BID 08/31/20 21:00 UNV Cefepime HCl (Maxipime) 1 gm Q12HR 08/29/20 21:00 08/31/20 09:32 1 GM Enoxaparin Sodium (Lovenox 40mg Syringe) 40 mg Q24H 08/30/20 15:00 08/30/20 15:17 40 MG Guaifenesin (Robitussin) 200 mg PRN Q4HRS PRN 08/29/20 14:45 Methylprednisolone Sodium Succinate (SOLU-Medrol 125MG VIAL) 125 mg 1X ONCE 08/28/20 23:55 08/29/20 00:12 DC Ondansetron HCl (Zofran) 4 mg PRN Q4HRS PRN 08/29/20 14:45 Potassium Chloride/Water 100 ml @ 100 mls/hr Q1H 08/31/20 12:00 08/31/20 15:59 Sodium Monofluorophosphate (Fleet Adult) 133 ml PRN DAILY PRN 08/29/20 14:45 Sodium Chloride 1,000 ml @ 100 mls/hr Q10H 08/29/20 18:00 08/30/20 15:16 100 MLS/HR Sodium Chloride (Normal Saline Flush) 3 ml QSHIFT PRN 08/29/20 14:45 Vancomycin HCl 1.75 gm/Sodium Chloride 500 ml @ 250 mls/hr 1X ONCE 08/29/20 02:30 08/29/20 04:29 DC 08/29/20 02:48 250 MLS/HR Labs: Lab Laboratory Tests Test 08/31/20 08:05 White Blood Count 7.1 x10^3/uL (4.0-11.0) Red Blood Count 4.38 x10^6/uL (4.30-5.70) Hemoglobin 14.9 g/dL (13.0-17.5) Hematocrit 43.1 % (39.0-53.0) Mean Corpuscular Volume 98 fL (79-100) Mean Corpuscular Hemoglobin 34 pg (25-35) Mean Corpuscular Hemoglobin Concent 35 g/dL (31-37) Red Cell Distribution Width 14.6 % (11.5-14.5) Platelet Count 197 x10^3/uL (140-400) Neutrophils (%) (Auto) 51 % (31-73) Lymphocytes (%) (Auto) 32 % (24-48) Monocytes (%) (Auto) 13 % (0-9) Eosinophils (%) (Auto) 2 % (0-3) Basophils (%) (Auto) 1 % (0-3) Neutrophils # (Auto) 3.7 x10^3/uL (1.8-7.7) Lymphocytes # (Auto) 2.3 x10^3/uL (1.0-4.8) Monocytes # (Auto) 0.9 x10^3/uL (0.0-1.1) Eosinophils # (Auto) 0.1 x10^3/uL (0.0-0.7) Basophils # (Auto) 0.1 x10^3/uL (0.0-0.2) Sodium Level 146 mmol/L (136-145) Potassium Level 3.3 mmol/L (3.5-5.1) Chloride Level 110 mmol/L (98-107) Carbon Dioxide Level 27 mmol/L (21-32) Anion Gap 9 (6-14) Blood Urea Nitrogen 18 mg/dL (8-26) Creatinine 1.3 mg/dL (0.7-1.3) Estimated GFR (Cockcroft-Gault) 66.8 Glucose Level 74 mg/dL (70-99) Calcium Level 9.3 mg/dL (8.5-10.1) Triglycerides Level 151 mg/dL (0-150) Cholesterol Level 190 mg/dL (0-200) LDL Cholesterol, Calculated 132 mg/dL (0-100) VLDL Cholesterol, Calculated 30 mg/dL (0-40) Non-HDL Cholesterol Calculated 162 mg/dL (0-129) HDL Cholesterol 28 mg/dL (40-60) Cholesterol/HDL Ratio 6.8 Objective: Assessment: Encephalopathy Acute lacunar infarcts on MRI Progressive mental status changes since May 2020 CSF studies negative CSF JAYNA virus negative Extensive work-up done at [facility] MRI brain May 2020 showed moderate to marked diffuse ventriculomegaly with relative crowding of the sulci 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
[2020-08-31] MEDS ORDERED: ANTI-COAG MONITOR BY PHARMACY. MC PRN (12:30)
[2020-08-31] MEDS: POTASSIUM CHLORIDE 10MEQ 100 ML IV SCH ×4 (12:57→16:49)
--- NOTE | 2020-08-31 13:15 | PDOC ---
Renal-Progress Notes Subjective Notes Notes STILL CONFUSED History of Present Illness Hx of present illness STABLE Vitals Vitals Vital Signs Date Time Temp Pulse Resp B/P (MAP) Pulse Ox O2 Delivery O2 Flow Rate FiO2 08/31/20 11:00 98.0 77 18 123/96 (105) 98 Room Air 98.0 Weight Weight [ ] I.O. Intake and Output Intake and Output 08/31/20 07:00 # Voids 3 Labs Labs Laboratory Tests Test 08/31/20 08:05 White Blood Count 7.1 x10^3/uL (4.0-11.0) Red Blood Count 4.38 x10^6/uL (4.30-5.70) Hemoglobin 14.9 g/dL (13.0-17.5) Hematocrit 43.1 % (39.0-53.0) Mean Corpuscular Volume 98 fL (79-100) Mean Corpuscular Hemoglobin 34 pg (25-35) Mean Corpuscular Hemoglobin Concent 35 g/dL (31-37) Red Cell Distribution Width 14.6 % (11.5-14.5) Platelet Count 197 x10^3/uL (140-400) Neutrophils (%) (Auto) 51 % (31-73) Lymphocytes (%) (Auto) 32 % (24-48) Monocytes (%) (Auto) 13 % (0-9) Eosinophils (%) (Auto) 2 % (0-3) Basophils (%) (Auto) 1 % (0-3) Neutrophils # (Auto) 3.7 x10^3/uL (1.8-7.7) Lymphocytes # (Auto) 2.3 x10^3/uL (1.0-4.8) Monocytes # (Auto) 0.9 x10^3/uL (0.0-1.1) Eosinophils # (Auto) 0.1 x10^3/uL (0.0-0.7) Basophils # (Auto) 0.1 x10^3/uL (0.0-0.2) Sodium Level 146 mmol/L (136-145) Potassium Level 3.3 mmol/L (3.5-5.1) Chloride Level 110 mmol/L (98-107) Carbon Dioxide Level 27 mmol/L (21-32) Anion Gap 9 (6-14) Blood Urea Nitrogen 18 mg/dL (8-26) Creatinine 1.3 mg/dL (0.7-1.3) Estimated GFR (Cockcroft-Gault) 66.8 Glucose Level 74 mg/dL (70-99) Calcium Level 9.3 mg/dL (8.5-10.1) Triglycerides Level 151 mg/dL (0-150) Cholesterol Level 190 mg/dL (0-200) LDL Cholesterol, Calculated 132 mg/dL (0-100) VLDL Cholesterol, Calculated 30 mg/dL (0-40) Non-HDL Cholesterol Calculated 162 mg/dL (0-129) HDL Cholesterol 28 mg/dL (40-60) Cholesterol/HDL Ratio 6.8 Micro Micro Microbiology 08/29/20 Blood Culture - Preliminary, Resulted NO GROWTH AFTER 1 DAY Review of Systems Constitutional: yes: other (CONFUSED) Physical Exam General Appearance: no apparent distress Skin: warm Respiratory: decreased breath sounds Heart: S1S2 Genitourinary: bladder flat Neurology: alert, confused Assessment Assessment IMP WANG WITH CR OF 3.4 ON ADMIT - NOW DOWN TO 1.3 HYPERNATREMIA-IMPROVING HYPOKALEMIA EXTRACELLULAR VOLUME DEPLETION ENCEPHALOPATHY HX OF HTN BPH/INCONTINENCE PLAN REPLACE K HYDRATION HOLD MICARDIS WILL FOLLOW GETACHEW EM MD Aug 31, 2020 13:15
[2020-08-31] MEDS: APIXABAN 2.5 MG TABLET. PO SCH ×2 (13:43→20:01)
--- NOTE | 2020-08-31 14:01 | NUR ---
SW following for discharge planning. Spoke with RN and reviewed chart. Working to advance pt's diet. Pt now dysphasia diet. Discharge plan remains back to [facility] when stable. Pt added to possible weekend discharge list. SW following.
[2020-08-31 15:00] VITALS: BP 145/81
[2020-08-31 19:57] VITALS: BP 144/101
[2020-08-31] MEDS: CEFDINIR 300 MG CAPSULE PO SCH (20:01)
[2020-08-31 23:20] VITALS: BP 135/91
[2020-09-01] MEDS: IV 1/2 NORMAL SALINE 1,000 ML IV SCH ×4 (02:06→21:49)
[2020-09-01 03:15] VITALS: BP 135/84
[2020-09-01 07:23] LABS: BASO # 0.1 x10^3/uL (0.0-0.2); BASO % 2 % (0-3); EOS # 0.1 x10^3/uL (0.0-0.7); EOS % 2 % (0-3); HEMATOCRIT 42.7 % (39.0-53.0); HEMOGLOBIN 14.2 g/dL (13.0-17.5); LYMPH # 2.2 x10^3/uL (1.0-4.8); LYMPH % 33 % (24-48); MEAN CORPUSCULAR HEMOGLOBIN 33 pg (25-35); MEAN CORPUSCULAR HGB CONC 33 g/dL (31-37); MEAN CORPUSCULAR VOLUME 98 fL (79-100); MONO # 0.7 x10^3/uL (0.0-1.1); MONO % 11 % (0-9); NEUT # 3.5 x10^3/uL (1.8-7.7); NEUT % 52 % (31-73); PLATELET COUNT 204 x10^3/uL (140-400); RED BLOOD COUNT 4.34 x10^6/uL (4.30-5.70); RED CELL DISTRIBUTION WIDTH 14.7 % (11.5-14.5); WHITE BLOOD COUNT 6.7 x10^3/uL (4.0-11.0)
--- NOTE | 2020-09-01 07:49 | PDOC ---
PULMONARY PROGRESS NOTES DATE: 09/01/20 TIME: 07:48 Subjective Patient remains on room air appears comfortable. Afebrile overnight No overnight events Vitals Vital Signs Date Time Temp Pulse Resp B/P (MAP) Pulse Ox O2 Delivery O2 Flow Rate FiO2 09/01/20 03:15 98.2 69 18 135/84 (101) 99 Room Air 98.2 General: Alert HEENT: Other (nc at perrl ) Cardiovascular: S1, S2 Abdomen: Soft, Non-tender Neuro Exam: Alert Extremities: No Edema Skin: Warm, Dry Labs Laboratory Tests Test 08/30/20 08:50 08/31/20 08:05 09/01/20 07:05 White Blood Count 7.5 x10^3/uL (4.0-11.0) 7.1 x10^3/uL (4.0-11.0) 6.7 x10^3/uL (4.0-11.0) Red Blood Count 4.44 x10^6/uL (4.30-5.70) 4.38 x10^6/uL (4.30-5.70) 4.34 x10^6/uL (4.30-5.70) Hemoglobin 15.0 g/dL (13.0-17.5) 14.9 g/dL (13.0-17.5) 14.2 g/dL (13.0-17.5) Hematocrit 43.9 % (39.0-53.0) 43.1 % (39.0-53.0) 42.7 % (39.0-53.0) Mean Corpuscular Volume 99 fL (79-100) 98 fL (79-100) 98 fL (79-100) Mean Corpuscular Hemoglobin 34 pg (25-35) 34 pg (25-35) 33 pg (25-35) Mean Corpuscular Hemoglobin Concent 34 g/dL (31-37) 35 g/dL (31-37) 33 g/dL (31-37) Red Cell Distribution Width 15.4 % (11.5-14.5) 14.6 % (11.5-14.5) 14.7 % (11.5-14.5) Platelet Count 220 x10^3/uL (140-400) 197 x10^3/uL (140-400) 204 x10^3/uL (140-400) Neutrophils (%) (Auto) 54 % (31-73) 51 % (31-73) 52 % (31-73) Lymphocytes (%) (Auto) 31 % (24-48) 32 % (24-48) 33 % (24-48) Monocytes (%) (Auto) 12 % (0-9) 13 % (0-9) 11 % (0-9) Eosinophils (%) (Auto) 2 % (0-3) 2 % (0-3) 2 % (0-3) Basophils (%) (Auto) 1 % (0-3) 1 % (0-3) 2 % (0-3) Neutrophils # (Auto) 4.0 x10^3/uL (1.8-7.7) 3.7 x10^3/uL (1.8-7.7) 3.5 x10^3/uL (1.8-7.7) Lymphocytes # (Auto) 2.3 x10^3/uL (1.0-4.8) 2.3 x10^3/uL (1.0-4.8) 2.2 x10^3/uL (1.0-4.8) Monocytes # (Auto) 0.9 x10^3/uL (0.0-1.1) 0.9 x10^3/uL (0.0-1.1) 0.7 x10^3/uL (0.0-1.1) Eosinophils # (Auto) 0.1 x10^3/uL (0.0-0.7) 0.1 x10^3/uL (0.0-0.7) 0.1 x10^3/uL (0.0-0.7) Basophils # (Auto) 0.1 x10^3/uL (0.0-0.2) 0.1 x10^3/uL (0.0-0.2) 0.1 x10^3/uL (0.0-0.2) Sodium Level 147 mmol/L (136-145) 146 mmol/L (136-145) Potassium Level 3.6 mmol/L (3.5-5.1) 3.3 mmol/L (3.5-5.1) Chloride Level 110 mmol/L (98-107) 110 mmol/L (98-107) Carbon Dioxide Level 28 mmol/L (21-32) 27 mmol/L (21-32) Anion Gap 9 (6-14) 9 (6-14) Blood Urea Nitrogen 21 mg/dL (8-26) 18 mg/dL (8-26) Creatinine 1.4 mg/dL (0.7-1.3) 1.3 mg/dL (0.7-1.3) Estimated GFR (Cockcroft-Gault) 61.4 66.8 BUN/Creatinine Ratio 15 (6-20) Glucose Level 79 mg/dL (70-99) 74 mg/dL (70-99) Calcium Level 9.8 mg/dL (8.5-10.1) 9.3 mg/dL (8.5-10.1) Total Bilirubin 0.9 mg/dL (0.2-1.0) Aspartate Amino Transf (AST/SGOT) 93 U/L (15-37) Alanine Aminotransferase (ALT/SGPT) 41 U/L (16-63) Alkaline Phosphatase 74 U/L (46-116) Total Protein 7.4 g/dL (6.4-8.2) Albumin 3.1 g/dL (3.4-5.0) Albumin/Globulin Ratio 0.7 (1.0-1.7) Triglycerides Level 151 mg/dL (0-150) Cholesterol Level 190 mg/dL (0-200) LDL Cholesterol, Calculated 132 mg/dL (0-100) VLDL Cholesterol, Calculated 30 mg/dL (0-40) Non-HDL Cholesterol Calculated 162 mg/dL (0-129) HDL Cholesterol 28 mg/dL (40-60) Cholesterol/HDL Ratio 6.8 Treponema pallidum Antibody Reactive (Nonreactive) Laboratory Tests Test 08/31/20 08:05 09/01/20 07:05 White Blood Count 7.1 x10^3/uL (4.0-11.0) 6.7 x10^3/uL (4.0-11.0) Red Blood Count 4.38 x10^6/uL (4.30-5.70) 4.34 x10^6/uL (4.30-5.70) Hemoglobin 14.9 g/dL (13.0-17.5) 14.2 g/dL (13.0-17.5) Hematocrit 43.1 % (39.0-53.0) 42.7 % (39.0-53.0) Mean Corpuscular Volume 98 fL (79-100) 98 fL (79-100) Mean Corpuscular Hemoglobin 34 pg (25-35) 33 pg (25-35) Mean Corpuscular Hemoglobin Concent 35 g/dL (31-37) 33 g/dL (31-37) Red Cell Distribution Width 14.6 % (11.5-14.5) 14.7 % (11.5-14.5) Platelet Count 197 x10^3/uL (140-400) 204 x10^3/uL (140-400) Neutrophils (%) (Auto) 51 % (31-73) 52 % (31-73) Lymphocytes (%) (Auto) 32 % (24-48) 33 % (24-48) Monocytes (%) (Auto) 13 % (0-9) 11 % (0-9) Eosinophils (%) (Auto) 2 % (0-3) 2 % (0-3) Basophils (%) (Auto) 1 % (0-3) 2 % (0-3) Neutrophils # (Auto) 3.7 x10^3/uL (1.8-7.7) 3.5 x10^3/uL (1.8-7.7) Lymphocytes # (Auto) 2.3 x10^3/uL (1.0-4.8) 2.2 x10^3/uL (1.0-4.8) Monocytes # (Auto) 0.9 x10^3/uL (0.0-1.1) 0.7 x10^3/uL (0.0-1.1) Eosinophils # (Auto) 0.1 x10^3/uL (0.0-0.7) 0.1 x10^3/uL (0.0-0.7) Basophils # (Auto) 0.1 x10^3/uL (0.0-0.2) 0.1 x10^3/uL (0.0-0.2) Sodium Level 146 mmol/L (136-145) Potassium Level 3.3 mmol/L (3.5-5.1) Chloride Level 110 mmol/L (98-107) Carbon Dioxide Level 27 mmol/L (21-32) Anion Gap 9 (6-14) Blood Urea Nitrogen 18 mg/dL (8-26) Creatinine 1.3 mg/dL (0.7-1.3) Estimated GFR (Cockcroft-Gault) 66.8 Glucose Level 74 mg/dL (70-99) Calcium Level 9.3 mg/dL (8.5-10.1) Triglycerides Level 151 mg/dL (0-150) Cholesterol Level 190 mg/dL (0-200) LDL Cholesterol, Calculated 132 mg/dL (0-100) VLDL Cholesterol, Calculated 30 mg/dL (0-40) Non-HDL Cholesterol Calculated 162 mg/dL (0-129) HDL Cholesterol 28 mg/dL (40-60) Cholesterol/HDL Ratio 6.8 Treponema pallidum Antibody Reactive (Nonreactive) Medications Active Scripts Medications Dose Route/Sig Max Daily Dose Days Date Category Multi-Vitamin Daily (Multivitamin) 1 Each Tablet 1 Tab PO DAILY 30 08/29/20 Reported Tramadol Hcl 50 Mg Tablet 50 Mg PO Q6HRS PRN 08/29/20 Reported Tivicay (Dolutegravir Sodium) 50 Mg Tablet 1 Tab PO DAILY 30 08/29/20 Reported Micardis (Telmisartan) 40 Mg Tablet 1 Tab PO DAILY 08/29/20 Reported Flomax (Tamsulosin Hcl) 0.4 Mg Cap.er.24h 1 Cap PO DAILY 08/29/20 Reported Symtuza [phone] mg Tab (Darunavir/Cob/Emtri/Tenof Alaf) 1 Each Tablet 1 Each PO DAILY 08/29/20 Reported Colcrys (Colchicine) 0.6 Mg Tablet 1 Tab PO DAILY 30 08/29/20 Reported Betamethasone Dipropionate 15 Gm Cream..g. 1 Antoine TP BID 08/29/20 Reported Eliquis (Apixaban) 2.5 Mg Tablet 2.5 Mg PO BID 08/29/20 Reported Amlodipine Besylate 10 Mg Tablet 10 Mg PO DAILY 08/29/20 Reported Comments CXR IMPRESSION: Patchy opacities left lung base may represent consolidative process such as pneumonia. echo The systolic function is low normal. EF 50% There is normal LV segmental wall motion. Impression . IMPRESSION: 1. Abnormal x-ray compatible with aspiration pneumonia. 2. Cerebrovascular accident per Neurology. 3. History of human immunodeficiency virus positive. 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 5. Renal insufficiency. 6. Hypertension. 7. obesity ?honorio Plan . Recommendations: It is stable from a pulmonary standpoint, remains on room air elevate hob Continue antibiotics per infectious disease recommendation, Follow neurology recommendations Echocardiogram reviewed MRI showed:Left blake radiata, left centrum semiovale and right occipital lobe acute lacunar infarcts Carotid ultrasound showed:Atherosclerosis of the cervical ICAs with velocities c onsistent with less than 50 percent stenosis. Physical therapy/Occupational Therapy/speech therapy DVT/GI prophylaxis Discussed with BRITT EVANS MD Sep 01, 2020 07:49
[2020-09-01 07:59] VITALS: BP 113/77
[2020-09-01 08:18] LABS: CALCIUM 9.2 mg/dL (8.5-10.1); CREATININE 1.2 mg/dL (0.7-1.3); GFR 73.3; POTASSIUM 3.5 mmol/L (3.5-5.1)
[2020-09-01] MEDS: APIXABAN 2.5 MG TABLET. PO SCH ×2 (09:58→21:45)
[2020-09-01] MEDS: CEFDINIR 300 MG CAPSULE PO SCH ×2 (09:59→21:45)
--- NOTE | 2020-09-01 10:06 | PDOC ---
PROGRESS NOTES Date of Service: DATE: 09/01/20 TIME: 10:06 Chief Complaint Chief Complaint VTE Prophylaxis Ordered VTE Prophylaxis Devices: Yes VTE Pharmacological Prophylaxi: Yes Assessment/Plan Assessment/Plan Impression: 1. No acute intracranial hemorrhage. 2. Bilateral thalamic age-indeterminate infarcts. , ACUTE PLAN MRI as noted 1- 13 Foci of diffusion signal hyperintensity involving the left blake radiata, left centrum semiovale and right occipital lobe suggests acute lacunar infarcts.,ACUTE There is mild associated cytotoxic edema without mass effect or hemorrhage. Foci susceptibility artifact scattered throughout the brain parenchyma suggests microhemorrhages versus tiny cavernoma. Moderate to advanced generalized cerebral volume loss. Moderate bilateral hippocampal volume loss. 3. Extensive sequelae of chronic microvascular ischemia. 4. Mildly dilated lateral third ventricles, may relate to central brain parenchymal volume loss POSSIBLE normal pressure hydrocephalus 5. Patchy opacities left lung base may represent consolidative process such as pneumonia., aspiration risk 6. 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 HIV follows up with Dr. 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 11.Hepatitis C with cirrhosis PLAN ADMIT MRI HEAD NEUROLOGY CONSULT emperic iv antibiotics dvt prophylaxis NEPHROLOGY CONSULT iv fluid support ID CONSULT 09/01 REMAINS TOTAL LIFT 27 min pt exam, chart review, > 50% of time spent with exam, chart review, pt care coordination History of Present Illness History of Present Illness Identification/Chief Complaint Chief Complaint AMS, CODE STROKE IN ER History of Present Illness History of Present Illness seen in er with AMS, 64 year old male coming in for [facility] for altered mental status. Per the report he is normally GCS 15 awake and alert. Last time he was seen was at dinner at 1800 where he was acting normally. When staff went to put him to bed about 30 minutes prior to arrival they noticed he was altered and not following commands. Per nursing facility documentation he is on Eliquis for DVTs. He has a history of metabolic encephalopathy, also has hepatitis C virus. No known falls or evidence of trauma. On arrival patient is awake but not following commands, some tracking of gaze. Patient not cooperative with NIH score. Picking his arms appears resistance but no cooperative effort and exam. cr elevated at 3 Code stroke activated on patient's arrival, no acute bleed or stroke CT. Discussed with neurology, Dr. Mccracken, not a TPA candidate secondary to Eliquis. Requesting CTA be done prior to admission HIV positive. Patient had several MRI studies, 2 lumbar punctures, and full evaluation including syphilis serologies, which were negative. at [facility] he was treated with antibiotics for syphilis and other infections, but nothing came with the work-up except for possible ventriculomegaly. A DRIVER OPERATOR shunt was discussed, but the doctors did not think that normal pressure hydrocephalus was an issue. Review of Systems: Review of Systems: Unable to obtain due to patient's mental status Past Medical History Cardiovascular: HTN, Hyperlipidemia, Other (DVT) CENTRAL NERVOUS SYSTEM: Other (met enceph) Hepatobiliary: Hep A/B/C (C) Psych: Depression, Other (thrombocythemia) Rheumatologic: Gout Infectious disease: HIV Renal/: Urinary Incontinence Family History Family History: Hypertension Social History Smoke: No ALCOHOL: none Drugs: None Current Problem List Problem List Problems Medical Problems: (1) AMS (altered mental status) Status: Acute (2) HCAP (healthcare-associated pneumonia) Status: Acute Vitals Vitals Vital Signs Date Time Temp Pulse Resp B/P (MAP) Pulse Ox O2 Delivery O2 Flow Rate FiO2 09/01/20 07:59 98.2 67 18 113/77 (89) 95 Room Air 98.2 Physical Exam Physical Exam GENERAL: Well-developed, well-nourished male in no acute distress. Does not respond to any questions. HEENT: Normocephalic, atraumatic, anicteric. Does not open mouth. NECK: Supple, no JVD, no lymphadenopathy. LUNGS: Clear bilaterally. Decreased breath sounds at the bases. HEART: S1, S2. No gallops or murmurs. ABDOMEN: Obese, soft, bowel sounds present, nontender, nondistended. GENITOURINARY: No Calvert in place. DERMATOLOGIC: No generalized rash. NEUROLOGIC: Confused. Opens eyes but does not follow any commands PSYCHIATRIC: Unable to assess. MUSCULOSKELETAL: No joint swelling or decrease in range of motion noted. General: Alert, Cooperative, No acute distress, Other (ENCEPHALOPATHIC) Heart: Regular rate Abdomen: Normal bowel sounds, Soft, No tenderness Extremities: No cyanosis Skin: No breakdown Labs LABS Laboratory Tests Test 09/01/20 07:05 White Blood Count 6.7 x10^3/uL (4.0-11.0) Red Blood Count 4.34 x10^6/uL (4.30-5.70) Hemoglobin 14.2 g/dL (13.0-17.5) Hematocrit 42.7 % (39.0-53.0) Mean Corpuscular Volume 98 fL (79-100) Mean Corpuscular Hemoglobin 33 pg (25-35) Mean Corpuscular Hemoglobin Concent 33 g/dL (31-37) Red Cell Distribution Width 14.7 % (11.5-14.5) Platelet Count 204 x10^3/uL (140-400) Neutrophils (%) (Auto) 52 % (31-73) Lymphocytes (%) (Auto) 33 % (24-48) Monocytes (%) (Auto) 11 % (0-9) Eosinophils (%) (Auto) 2 % (0-3) Basophils (%) (Auto) 2 % (0-3) Neutrophils # (Auto) 3.5 x10^3/uL (1.8-7.7) Lymphocytes # (Auto) 2.2 x10^3/uL (1.0-4.8) Monocytes # (Auto) 0.7 x10^3/uL (0.0-1.1) Eosinophils # (Auto) 0.1 x10^3/uL (0.0-0.7) Basophils # (Auto) 0.1 x10^3/uL (0.0-0.2) Sodium Level 140 mmol/L (136-145) Potassium Level 3.5 mmol/L (3.5-5.1) Chloride Level 105 mmol/L (98-107) Carbon Dioxide Level 27 mmol/L (21-32) Anion Gap 8 (6-14) Blood Urea Nitrogen 13 mg/dL (8-26) Creatinine 1.2 mg/dL (0.7-1.3) Estimated GFR (Cockcroft-Gault) 73.3 Glucose Level 76 mg/dL (70-99) Calcium Level 9.2 mg/dL (8.5-10.1) Assessment and Plan Assessmemt and Plan Problems Medical Problems: (1) AMS (altered mental status) Status: Acute (2) HCAP (healthcare-associated pneumonia) Status: Acute Comment Review of Relevant I have reviewed the following items zander (where applicable) has been applied. Labs Laboratory Tests Test 08/31/20 08:05 09/01/20 07:05 White Blood Count 7.1 x10^3/uL (4.0-11.0) 6.7 x10^3/uL (4.0-11.0) Red Blood Count 4.38 x10^6/uL (4.30-5.70) 4.34 x10^6/uL (4.30-5.70) Hemoglobin 14.9 g/dL (13.0-17.5) 14.2 g/dL (13.0-17.5) Hematocrit 43.1 % (39.0-53.0) 42.7 % (39.0-53.0) Mean Corpuscular Volume 98 fL (79-100) 98 fL (79-100) Mean Corpuscular Hemoglobin 34 pg (25-35) 33 pg (25-35) Mean Corpuscular Hemoglobin Concent 35 g/dL (31-37) 33 g/dL (31-37) Red Cell Distribution Width 14.6 % (11.5-14.5) 14.7 % (11.5-14.5) Platelet Count 197 x10^3/uL (140-400) 204 x10^3/uL (140-400) Neutrophils (%) (Auto) 51 % (31-73) 52 % (31-73) Lymphocytes (%) (Auto) 32 % (24-48) 33 % (24-48) Monocytes (%) (Auto) 13 % (0-9) 11 % (0-9) Eosinophils (%) (Auto) 2 % (0-3) 2 % (0-3) Basophils (%) (Auto) 1 % (0-3) 2 % (0-3) Neutrophils # (Auto) 3.7 x10^3/uL (1.8-7.7) 3.5 x10^3/uL (1.8-7.7) Lymphocytes # (Auto) 2.3 x10^3/uL (1.0-4.8) 2.2 x10^3/uL (1.0-4.8) Monocytes # (Auto) 0.9 x10^3/uL (0.0-1.1) 0.7 x10^3/uL (0.0-1.1) Eosinophils # (Auto) 0.1 x10^3/uL (0.0-0.7) 0.1 x10^3/uL (0.0-0.7) Basophils # (Auto) 0.1 x10^3/uL (0.0-0.2) 0.1 x10^3/uL (0.0-0.2) Sodium Level 146 mmol/L (136-145) 140 mmol/L (136-145) Potassium Level 3.3 mmol/L (3.5-5.1) 3.5 mmol/L (3.5-5.1) Chloride Level 110 mmol/L (98-107) 105 mmol/L (98-107) Carbon Dioxide Level 27 mmol/L (21-32) 27 mmol/L (21-32) Anion Gap 9 (6-14) 8 (6-14) Blood Urea Nitrogen 18 mg/dL (8-26) 13 mg/dL (8-26) Creatinine 1.3 mg/dL (0.7-1.3) 1.2 mg/dL (0.7-1.3) Estimated GFR (Cockcroft-Gault) 66.8 73.3 Glucose Level 74 mg/dL (70-99) 76 mg/dL (70-99) Calcium Level 9.3 mg/dL (8.5-10.1) 9.2 mg/dL (8.5-10.1) Triglycerides Level 151 mg/dL (0-150) Cholesterol Level 190 mg/dL (0-200) LDL Cholesterol, Calculated 132 mg/dL (0-100) VLDL Cholesterol, Calculated 30 mg/dL (0-40) Non-HDL Cholesterol Calculated 162 mg/dL (0-129) HDL Cholesterol 28 mg/dL (40-60) Cholesterol/HDL Ratio 6.8 Treponema pallidum Antibody Reactive (Nonreactive) Laboratory Tests Test 09/01/20 07:05 White Blood Count 6.7 x10^3/uL (4.0-11.0) Red Blood Count 4.34 x10^6/uL (4.30-5.70) Hemoglobin 14.2 g/dL (13.0-17.5) Hematocrit 42.7 % (39.0-53.0) Mean Corpuscular Volume 98 fL (79-100) Mean Corpuscular Hemoglobin 33 pg (25-35) Mean Corpuscular Hemoglobin Concent 33 g/dL (31-37) Red Cell Distribution Width 14.7 % (11.5-14.5) Platelet Count 204 x10^3/uL (140-400) Neutrophils (%) (Auto) 52 % (31-73) Lymphocytes (%) (Auto) 33 % (24-48) Monocytes (%) (Auto) 11 % (0-9) Eosinophils (%) (Auto) 2 % (0-3) Basophils (%) (Auto) 2 % (0-3) Neutrophils # (Auto) 3.5 x10^3/uL (1.8-7.7) Lymphocytes # (Auto) 2.2 x10^3/uL (1.0-4.8) Monocytes # (Auto) 0.7 x10^3/uL (0.0-1.1) Eosinophils # (Auto) 0.1 x10^3/uL (0.0-0.7) Basophils # (Auto) 0.1 x10^3/uL (0.0-0.2) Sodium Level 140 mmol/L (136-145) Potassium Level 3.5 mmol/L (3.5-5.1) Chloride Level 105 mmol/L (98-107) Carbon Dioxide Level 27 mmol/L (21-32) Anion Gap 8 (6-14) Blood Urea Nitrogen 13 mg/dL (8-26) Creatinine 1.2 mg/dL (0.7-1.3) Estimated GFR (Cockcroft-Gault) 73.3 Glucose Level 76 mg/dL (70-99) Calcium Level 9.2 mg/dL (8.5-10.1) Microbiology 08/29/20 Blood Culture - Preliminary, Resulted NO GROWTH AFTER 2 DAYS Medications Current Medications Sodium Chloride 1,000 ml @ 100 mls/hr Q10H IV Last administered on 08/29/20at 09:08; Start 08/28/20 at 22:15; Stop 08/29/20 at 18:11; Status DC Methylprednisolone Sodium Succinate (SOLU-Medrol 125MG VIAL) 125 mg 1X ONCE IV ; Start 08/28/20 at 23:55; Stop 08/29/20 at 00:12; Status DC Cefepime HCl (Maxipime) 1 gm 1X ONCE IVP Last administered on 08/29/20at 02:45; Start 08/29/20 at 02:30; Stop 08/29/20 at 02:32; Status DC Vancomycin HCl 1.75 gm/Sodium Chloride 500 ml @ 250 mls/hr 1X ONCE IV Last administered on 08/29/20at 02:48; Start 08/29/20 at 02:30; Stop 08/29/20 at 04:29; Status DC Cefepime HCl (Maxipime) 1 gm Q12HR IVP Last administered on 08/31/20at 09:32; Start 08/29/20 at 21:00; Stop 08/31/20 at 19:08; Status DC Sodium Chloride (Normal Saline Flush) 3 ml QSHIFT PRN IV AFTER MEDS AND BLOOD DRAWS; Start 08/29/20 at 14:45 Sodium Chloride 1,000 ml @ 100 mls/hr Q10H IV ; Start 08/29/20 at 14:45; Stop 08/29/20 at 18:11; Status DC Ondansetron HCl (Zofran) 4 mg PRN Q4HRS PRN IV NAUSEA/VOMITING; Start 08/29/20 at 14:45 Acetaminophen (Tylenol Supp) 650 mg PRN Q4HRS PRN WA TEMP OVER 100.4F OR MILD PAIN; Start 08/29/20 at 14:45 Sodium Monofluorophosphate (Fleet Adult) 133 ml PRN DAILY PRN WA CONSTIPATION; Start 08/29/20 at 14:45 Albuterol Sulfate (Ventolin Neb Soln) 2.5 mg PRN Q4HRS PRN NEB SHORTNESS OF BREATH; Start 08/29/20 at 14:45 Guaifenesin (Robitussin) 200 mg PRN Q4HRS PRN PO COUGH; Start 08/29/20 at 14:45 Sodium Chloride 1,000 ml @ 100 mls/hr Q10H IV Last administered on 09/01/20at 02:06; Start 08/29/20 at 18:00 Acetaminophen (Tylenol) 650 mg PRN Q6HRS PRN PO MILD PAIN / TEMP > 100.3'F; Start 08/30/20 at 09:30 Enoxaparin Sodium (Lovenox 40mg Syringe) 30 mg Q24H SQ ; Start 08/30/20 at 13:00; Status Cancel Enoxaparin Sodium (Lovenox 40mg Syringe) 40 mg Q24H SQ ; Start 08/30/20 at 14:09; Status Cancel Enoxaparin Sodium (Lovenox 40mg Syringe) 40 mg Q24H SQ Last administered on 08/30/20at 15:17; Start 08/30/20 at 15:00; Stop 08/31/20 at 13:15; Status DC Potassium Chloride/Water 100 ml @ 100 mls/hr Q1H IV Last administered on 08/31/20at 16:49; Start 08/31/20 at 12:00; Stop 08/31/20 at 15:59; Status DC Apixaban (Eliquis) 2.5 mg BID PO Last administered on 09/01/20at 09:58; Start 08/31/20 at 13:00 Info (Anti-Coagulation Monitoring By Pharmacy) 1 each PRN DAILY PRN MC SEE COMMENTS; Start 08/31/20 at 12:30 Cefdinir (Omnicef) 300 mg BID PO Last administered on 09/01/20at 09:59; Start 08/31/20 at 21:00 Active Scripts Active Reported Multi-Vitamin Daily (Multivitamin) 1 Each Tablet 1 Tab PO DAILY 30 Days Tramadol Hcl 50 Mg Tablet 50 Mg PO Q6HRS PRN Tivicay (Dolutegravir Sodium) 50 Mg Tablet 1 Tab PO DAILY 30 Days Micardis (Telmisartan) 40 Mg Tablet 1 Tab PO DAILY Flomax (Tamsulosin Hcl) 0.4 Mg Cap.er.24h 1 Cap PO DAILY Symtuza [id number] mg Tab (Darunavir/Cob/Emtri/Tenof Alaf) 1 Each Tablet 1 Each PO DAILY Colcrys (Colchicine) 0.6 Mg Tablet 1 Tab PO DAILY 30 Days Betamethasone Dipropionate 15 Gm Cream..g. 1 Antoine TP BID Eliquis (Apixaban) 2.5 Mg Tablet 2.5 Mg PO BID Amlodipine Besylate 10 Mg Tablet 10 Mg PO DAILY Vitals/I & O Vital Sign - Last 24 Hours 08/31/20 08/31/20 08/31/20 08/31/20 11:00 15:00 19:50 19:57 Temp 98.0 98.7 98.4 98.0 98.7 98.4 Pulse 77 71 72 Resp 18 18 20 B/P (MAP) 123/96 (105) 145/81 (102) 144/101 (115) Pulse Ox 98 97 98 O2 Delivery Room Air Room Air Room Air Room Air 08/31/20 09/01/20 09/01/20 23:20 03:15 07:59 Temp 99.1 98.2 98.2 99.1 98.2 98.2 Pulse 69 69 67 Resp 18 18 18 B/P (MAP) 135/91 (106) 135/84 (101) 113/77 (89) Pulse Ox 99 99 95 O2 Delivery Room Air Room Air Room Air Intake and Output 08/31/20 08/31/20 09/01/20 15:00 23:00 07:00 Intake Total 100 ml 120 ml 1000 ml Balance 100 ml 120 ml 1000 ml Justicifation of Admission Dx: Justifications for Admission: Justification of Admission Dx: Yes Stroke - Ischemic: Stroke-Ischemic EVE DOWNEY MD Sep 01, 2020 10:06
--- NOTE | 2020-09-01 10:32 | PDOC ---
Infectious Disease Note Subjective: Subjective Patient more alert today Says" hi" Smiling Does not answer all questions Vital Signs: Vital Signs Vital Signs Date Time Temp Pulse Resp B/P (MAP) Pulse Ox O2 Delivery O2 Flow Rate FiO2 09/01/20 07:59 98.2 67 18 113/77 (89) 95 Room Air 98.2 Physical Exam: PHYSICAL EXAM GENERAL: Well-developed, well-nourished male in no acute distress. Little more alert Does not answer all questions Smiling pleasant HEENT: Normocephalic, atraumatic, anicteric. Does not open mouth. NECK: Supple, no JVD, no lymphadenopathy. LUNGS: Clear bilaterally. Decreased breath sounds at the bases. HEART: S1, S2. No gallops or murmurs. ABDOMEN: Obese, soft, bowel sounds present, nontender, nondistended. GENITOURINARY: No Calvert in place. DERMATOLOGIC: No generalized rash. NEUROLOGIC: Smiles, does not answer all questions PSYCHIATRIC: Calm cooperative MUSCULOSKELETAL: No joint swelling or decrease in range of motion noted. Medications: Inpatient Meds: Current Medications Medications (Trade) Dose Ordered Sig/Mary Start Time Stop Time Status Last Admin Dose Admin Acetaminophen (Tylenol Supp) 650 mg PRN Q4HRS PRN 08/29/20 14:45 Acetaminophen (Tylenol) 650 mg PRN Q6HRS PRN 08/30/20 09:30 Albuterol Sulfate (Ventolin Neb Soln) 2.5 mg PRN Q4HRS PRN 08/29/20 14:45 Apixaban (Eliquis) 2.5 mg BID 08/31/20 13:00 09/01/20 09:58 2.5 MG Cefdinir (Omnicef) 300 mg BID 08/31/20 21:00 09/01/20 09:59 300 MG Cefepime HCl (Maxipime) 1 gm Q12HR 08/29/20 21:00 08/31/20 19:08 DC 08/31/20 09:32 1 GM Enoxaparin Sodium (Lovenox 40mg Syringe) 40 mg Q24H 08/30/20 15:00 08/31/20 13:15 DC 08/30/20 15:17 40 MG Guaifenesin (Robitussin) 200 mg PRN Q4HRS PRN 08/29/20 14:45 Info (Anti-Coagulation Monitoring By Pharmacy) 1 each PRN DAILY PRN 08/31/20 12:30 Methylprednisolone Sodium Succinate (SOLU-Medrol 125MG VIAL) 125 mg 1X ONCE 08/28/20 23:55 08/29/20 00:12 DC Ondansetron HCl (Zofran) 4 mg PRN Q4HRS PRN 08/29/20 14:45 Potassium Chloride/Water 100 ml @ 100 mls/hr Q1H 08/31/20 12:00 08/31/20 15:59 DC 08/31/20 16:49 100 MLS/HR Sodium Monofluorophosphate (Fleet Adult) 133 ml PRN DAILY PRN 08/29/20 14:45 Sodium Chloride 1,000 ml @ 100 mls/hr Q10H 08/29/20 18:00 09/01/20 02:06 100 MLS/HR Sodium Chloride (Normal Saline Flush) 3 ml QSHIFT PRN 08/29/20 14:45 Vancomycin HCl 1.75 gm/Sodium Chloride 500 ml @ 250 mls/hr 1X ONCE 08/29/20 02:30 08/29/20 04:29 DC 08/29/20 02:48 250 MLS/HR Labs: Lab Laboratory Tests Test 09/01/20 07:05 White Blood Count 6.7 x10^3/uL (4.0-11.0) Red Blood Count 4.34 x10^6/uL (4.30-5.70) Hemoglobin 14.2 g/dL (13.0-17.5) Hematocrit 42.7 % (39.0-53.0) Mean Corpuscular Volume 98 fL (79-100) Mean Corpuscular Hemoglobin 33 pg (25-35) Mean Corpuscular Hemoglobin Concent 33 g/dL (31-37) Red Cell Distribution Width 14.7 % (11.5-14.5) Platelet Count 204 x10^3/uL (140-400) Neutrophils (%) (Auto) 52 % (31-73) Lymphocytes (%) (Auto) 33 % (24-48) Monocytes (%) (Auto) 11 % (0-9) Eosinophils (%) (Auto) 2 % (0-3) Basophils (%) (Auto) 2 % (0-3) Neutrophils # (Auto) 3.5 x10^3/uL (1.8-7.7) Lymphocytes # (Auto) 2.2 x10^3/uL (1.0-4.8) Monocytes # (Auto) 0.7 x10^3/uL (0.0-1.1) Eosinophils # (Auto) 0.1 x10^3/uL (0.0-0.7) Basophils # (Auto) 0.1 x10^3/uL (0.0-0.2) Sodium Level 140 mmol/L (136-145) Potassium Level 3.5 mmol/L (3.5-5.1) Chloride Level 105 mmol/L (98-107) Carbon Dioxide Level 27 mmol/L (21-32) Anion Gap 8 (6-14) Blood Urea Nitrogen 13 mg/dL (8-26) Creatinine 1.2 mg/dL (0.7-1.3) Estimated GFR (Cockcroft-Gault) 73.3 Glucose Level 76 mg/dL (70-99) Calcium Level 9.2 mg/dL (8.5-10.1) Objective: Assessment: Encephalopathy Acute lacunar infarcts on MRI Progressive mental status changes since May 2020 CSF studies negative including HSV, VDRL, JAYNA virus negative Extensive work-up done at [facility] MRI brain May 2020 showed moderate to marked diffuse ventriculomegaly with relative crowding of the sulci 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 Hepatitis C with cirrhosis h/o Rt lower extremity DVT Hypertension Penicillin allergy with hives Plan: Plan of Care Continue Symtuza and Tivicay, team is trying to get it from the facility per pharmacy Cefdinirfor 5 days Records from [facility] reviewed Maintain aspiration precaution Prognosis poor ROMMEL PIMENTEL MD Sep 01, 2020 10:32
--- NOTE | 2020-09-01 11:07 | RAD ---
Study: XR CHEST 1V Indication: Pneumonia. Comparison: 08/28/2020 Findings: Slightly improved aeration of both lung bases. No confluent airspace opacity has developed in the int erim. No layering effusion or pneumothorax. Unchanged cardiomediastinal silhouette and helen. Impression: The only notable change from 08/28/2020 is slightly improved aeration of both lung bases. Electronically signed by: DEANNA REID MD (09/01/2020 11:05 AM) [id number]
[2020-09-01 11:59] VITALS: BP 139/89
[2020-09-01 15:59] VITALS: BP 136/82
[2020-09-01 19:00] VITALS: BP 131/90
[2020-09-01 23:00] VITALS: BP 146/90
[2020-09-02 03:00] VITALS: BP 159/92
--- NOTE | 2020-09-02 07:10 | PDOC ---
PULMONARY PROGRESS NOTES DATE: 09/02/20 TIME: 07:10 Subjective Patient remains on room air appears comfortable. Afebrile overnight No overnight events Vitals Vital Signs Date Time Temp Pulse Resp B/P (MAP) Pulse Ox O2 Delivery O2 Flow Rate FiO2 09/02/20 03:00 98.0 71 18 159/92 (114) 98 Room Air 98.0 General: Alert HEENT: Other (nc at perrl ) Cardiovascular: S1, S2 Abdomen: Soft, Non-tender Neuro Exam: Alert Skin: Warm, Dry Labs Laboratory Tests Test 08/31/20 08:05 08/31/20 11:55 09/01/20 07:05 White Blood Count 7.1 x10^3/uL (4.0-11.0) 6.7 x10^3/uL (4.0-11.0) Red Blood Count 4.38 x10^6/uL (4.30-5.70) 4.34 x10^6/uL (4.30-5.70) Hemoglobin 14.9 g/dL (13.0-17.5) 14.2 g/dL (13.0-17.5) Hematocrit 43.1 % (39.0-53.0) 42.7 % (39.0-53.0) Mean Corpuscular Volume 98 fL (79-100) 98 fL (79-100) Mean Corpuscular Hemoglobin 34 pg (25-35) 33 pg (25-35) Mean Corpuscular Hemoglobin Concent 35 g/dL (31-37) 33 g/dL (31-37) Red Cell Distribution Width 14.6 % (11.5-14.5) 14.7 % (11.5-14.5) Platelet Count 197 x10^3/uL (140-400) 204 x10^3/uL (140-400) Neutrophils (%) (Auto) 51 % (31-73) 52 % (31-73) Lymphocytes (%) (Auto) 32 % (24-48) 33 % (24-48) Monocytes (%) (Auto) 13 % (0-9) 11 % (0-9) Eosinophils (%) (Auto) 2 % (0-3) 2 % (0-3) Basophils (%) (Auto) 1 % (0-3) 2 % (0-3) Neutrophils # (Auto) 3.7 x10^3/uL (1.8-7.7) 3.5 x10^3/uL (1.8-7.7) Lymphocytes # (Auto) 2.3 x10^3/uL (1.0-4.8) 2.2 x10^3/uL (1.0-4.8) Monocytes # (Auto) 0.9 x10^3/uL (0.0-1.1) 0.7 x10^3/uL (0.0-1.1) Eosinophils # (Auto) 0.1 x10^3/uL (0.0-0.7) 0.1 x10^3/uL (0.0-0.7) Basophils # (Auto) 0.1 x10^3/uL (0.0-0.2) 0.1 x10^3/uL (0.0-0.2) Sodium Level 146 mmol/L (136-145) 140 mmol/L (136-145) Potassium Level 3.3 mmol/L (3.5-5.1) 3.5 mmol/L (3.5-5.1) Chloride Level 110 mmol/L (98-107) 105 mmol/L (98-107) Carbon Dioxide Level 27 mmol/L (21-32) 27 mmol/L (21-32) Anion Gap 9 (6-14) 8 (6-14) Blood Urea Nitrogen 18 mg/dL (8-26) 13 mg/dL (8-26) Creatinine 1.3 mg/dL (0.7-1.3) 1.2 mg/dL (0.7-1.3) Estimated GFR (Cockcroft-Gault) 66.8 73.3 Glucose Level 74 mg/dL (70-99) 76 mg/dL (70-99) Calcium Level 9.3 mg/dL (8.5-10.1) 9.2 mg/dL (8.5-10.1) Triglycerides Level 151 mg/dL (0-150) Cholesterol Level 190 mg/dL (0-200) LDL Cholesterol, Calculated 132 mg/dL (0-100) VLDL Cholesterol, Calculated 30 mg/dL (0-40) Non-HDL Cholesterol Calculated 162 mg/dL (0-129) HDL Cholesterol 28 mg/dL (40-60) Cholesterol/HDL Ratio 6.8 Treponema pallidum Antibody Reactive (Nonreactive) T-Lymphocyte CD4/CD8 Ratio See separate report Medications Active Scripts Medications Dose Route/Sig Max Daily Dose Days Date Category Multi-Vitamin Daily (Multivitamin) 1 Each Tablet 1 Tab PO DAILY 30 08/29/20 Reported Tramadol Hcl 50 Mg Tablet 50 Mg PO Q6HRS PRN 08/29/20 Reported Tivicay (Dolutegravir Sodium) 50 Mg Tablet 1 Tab PO DAILY 30 08/29/20 Reported Micardis (Telmisartan) 40 Mg Tablet 1 Tab PO DAILY 08/29/20 Reported Flomax (Tamsulosin Hcl) 0.4 Mg Cap.er.24h 1 Cap PO DAILY 08/29/20 Reported Symtuza [phone] mg Tab (Darunavir/Cob/Emtri/Tenof Alaf) 1 Each Tablet 1 Each PO DAILY 08/29/20 Reported Colcrys (Colchicine) 0.6 Mg Tablet 1 Tab PO DAILY 30 08/29/20 Reported Betamethasone Dipropionate 15 Gm Cream..g. 1 Antoine TP BID 08/29/20 Reported Eliquis (Apixaban) 2.5 Mg Tablet 2.5 Mg PO BID 08/29/20 Reported Amlodipine Besylate 10 Mg Tablet 10 Mg PO DAILY 08/29/20 Reported Comments CXR IMPRESSION: Patchy opacities left lung base may represent consolidative process such as pneumonia. echo The systolic function is low normal. EF 50% There is normal LV segmental wall motion. Impression . IMPRESSION: 1. Abnormal x-ray compatible with aspiration pneumonia. 2. Cerebrovascular accident per Neurology. 3. History of human immunodeficiency virus positive. 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 5. Renal insufficiency. 6. Hypertension. 7. obesity ?honorio Plan . Recommendations: It is stable from a pulmonary standpoint, remains on room air elevate hob Continue antibiotics per infectious disease recommendation, Follow neurology recommendations Echocardiogram reviewed MRI showed:Left blake radiata, left centrum semiovale and right occipital lobe acute lacunar infarcts Carotid ultrasound showed:Atherosclerosis of the cervical ICAs with velocities consistent with less than 50 percent stenosis. Physical therapy/Occupational Therapy/speech therapy DVT/GI prophylaxis Discussed with BRITT EVANS MD Sep 02, 2020 07:10
[2020-09-02 07:59] VITALS: BP 124/87
--- NOTE | 2020-09-02 08:02 | PDOC ---
Infectious Disease Note Subjective: Subjective Patient remains the same Vital Signs: Vital Signs Vital Signs Date Time Temp Pulse Resp B/P (MAP) Pulse Ox O2 Delivery O2 Flow Rate FiO2 09/02/20 03:00 98.0 71 18 159/92 (114) 98 Room Air 98.0 Physical Exam: PHYSICAL EXAM GENERAL: Well-developed, well-nourished male in no acute distress. Little more alert Does not answer all questions HEENT: Normocephalic, atraumatic, anicteric. Does not open mouth. NECK: Supple, no JVD, no lymphadenopathy. LUNGS: Clear bilaterally. Decreased breath sounds at the bases. HEART: S1, S2. No gallops or murmurs. ABDOMEN: Obese, soft, bowel sounds present, nontender, nondistended. GENITOURINARY: No Calvert in place. DERMATOLOGIC: No generalized rash. NEUROLOGIC: Remains confused PSYCHIATRIC: Calm cooperative MUSCULOSKELETAL: No joint swelling or decrease in range of motion noted. Medications: Inpatient Meds: Current Medications Medications (Trade) Dose Ordered Sig/Mary Start Time Stop Time Status Last Admin Dose Admin Acetaminophen (Tylenol Supp) 650 mg PRN Q4HRS PRN 08/29/20 14:45 Acetaminophen (Tylenol) 650 mg PRN Q6HRS PRN 08/30/20 09:30 Albuterol Sulfate (Ventolin Neb Soln) 2.5 mg PRN Q4HRS PRN 08/29/20 14:45 Apixaban (Eliquis) 2.5 mg BID 08/31/20 13:00 09/01/20 21:45 2.5 MG Cefdinir (Omnicef) 300 mg BID 08/31/20 21:00 09/01/20 21:45 300 MG Cefepime HCl (Maxipime) 1 gm Q12HR 08/29/20 21:00 08/31/20 19:08 DC 08/31/20 09:32 1 GM Enoxaparin Sodium (Lovenox 40mg Syringe) 40 mg Q24H 08/30/20 15:00 08/31/20 13:15 DC 08/30/20 15:17 40 MG Guaifenesin (Robitussin) 200 mg PRN Q4HRS PRN 08/29/20 14:45 Info (Anti-Coagulation Monitoring By Pharmacy) 1 each PRN DAILY PRN 08/31/20 12:30 Methylprednisolone Sodium Succinate (SOLU-Medrol 125MG VIAL) 125 mg 1X ONCE 08/28/20 23:55 08/29/20 00:12 DC Ondansetron HCl (Zofran) 4 mg PRN Q4HRS PRN 08/29/20 14:45 Potassium Chloride/Water 100 ml @ 100 mls/hr Q1H 08/31/20 12:00 08/31/20 15:59 DC 08/31/20 16:49 100 MLS/HR Sodium Monofluorophosphate (Fleet Adult) 133 ml PRN DAILY PRN 08/29/20 14:45 Sodium Chloride 1,000 ml @ 100 mls/hr Q10H 08/29/20 18:00 09/01/20 21:49 100 MLS/HR Sodium Chloride (Normal Saline Flush) 3 ml QSHIFT PRN 08/29/20 14:45 Vancomycin HCl 1.75 gm/Sodium Chloride 500 ml @ 250 mls/hr 1X ONCE 08/29/20 02:30 08/29/20 04:29 DC 08/29/20 02:48 250 MLS/HR Objective: Assessment: Encephalopathy Acute lacunar infarcts on MRI Progressive mental status changes since May 2020 CSF studies negative including HSV, VDRL, JAYNA virus negative Extensive work-up done at [facility] MRI brain May 2020 showed moderate to marked diffuse ventriculomegaly with relative crowding of the sulci 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 Hepatitis C with cirrhosis h/o Rt lower extremity DVT Hypertension Penicillin allergy with hives Plan: Plan of Care Continue Symtuza and Tivicay, team is trying to get it from the [facility] facility per pharmacy Cont Cefdinirfor for a total of 5 days Records from [facility] reviewed Maintain aspiration precaution Prognosis poor ROMMEL PIMENTEL MD Sep 02, 2020 08:02
[2020-09-02 09:11] LABS: ALBUMIN 2.8 g/dL (3.4-5.0); ALBUMIN/GLOBULIN RATIO 0.7 (1.0-1.7); CALCIUM 8.6 mg/dL (8.5-10.1); GFR 90.5; POTASSIUM 3.3 mmol/L (3.5-5.1); TOTAL BILIRUBIN 0.7 mg/dL (0.2-1.0); TOTAL PROTEIN 6.7 g/dL (6.4-8.2)
[2020-09-02 09:15] LABS: BASO # 0.1 x10^3/uL (0.0-0.2); BASO % 1 % (0-3); EOS # 0.1 x10^3/uL (0.0-0.7); EOS % 2 % (0-3); HEMATOCRIT 42.6 % (39.0-53.0); HEMOGLOBIN 14.6 g/dL (13.0-17.5); LYMPH # 1.8 x10^3/uL (1.0-4.8); LYMPH % 28 % (24-48); MEAN CORPUSCULAR HEMOGLOBIN 34 pg (25-35); MEAN CORPUSCULAR HGB CONC 34 g/dL (31-37); MEAN CORPUSCULAR VOLUME 98 fL (79-100); MONO # 0.8 x10^3/uL (0.0-1.1); MONO % 13 % (0-9); NEUT # 3.7 x10^3/uL (1.8-7.7); NEUT % 57 % (31-73); PLATELET COUNT 193 x10^3/uL (140-400); RED BLOOD COUNT 4.35 x10^6/uL (4.30-5.70); RED CELL DISTRIBUTION WIDTH 14.9 % (11.5-14.5); WHITE BLOOD COUNT 6.5 x10^3/uL (4.0-11.0)
--- NOTE | 2020-09-02 10:51 | PDOC ---
PROGRESS NOTES Date of Service: DATE: 09/02/20 TIME: 10:51 Chief Complaint Chief Complaint VTE Prophylaxis Ordered VTE Prophylaxis Devices: Yes VTE Pharmacological Prophylaxi: Yes Assessment/Plan Assessment/Plan Impression: 1. No acute intracranial hemorrhage. 2. Bilateral thalamic age-indeterminate infarcts. , ACUTE PLAN MRI as noted 1- 13 Foci of diffusion signal hyperintensity involving the left blake radiata, left centrum semiovale and right occipital lobe suggests acute lacunar infarcts.,ACUTE There is mild associated cytotoxic edema without mass effect or hemorrhage. Foci susceptibility artifact scattered throughout the brain parenchyma suggests microhemorrhages versus tiny cavernoma. Moderate to advanced generalized cerebral volume loss. Moderate bilateral hippocampal volume loss. 3. Extensive sequelae of chronic microvascular ischemia. 4. Mildly dilated lateral third ventricles, may relate to central brain parenchymal volume loss POSSIBLE normal pressure hydrocephalus 5. Patchy opacities left lung base may represent consolidative process such as pneumonia., aspiration risk 6. WANG 7.Overall prognosis is poor 8. 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 HIV follows up with Dr. 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 11.Hepatitis C with cirrhosis PLAN ADMIT MRI HEAD NEUROLOGY CONSULT emperic iv antibiotics dvt prophylaxis NEPHROLOGY CONSULT iv fluid support ID CONSULT replace k 09/01 REMAINS TOTAL LIFT 28 min pt exam, chart review, > 50% of time spent with exam, chart review, pt care coordination History of Present Illness History of Present Illness Identification/Chief Complaint Chief Complaint AMS, CODE STROKE IN ER History of Present Illness History of Present Illness seen in er with AMS, 64 year old male coming in for [facility] for altered mental status. Per the report he is normally GCS 15 awake and alert. Last time he was seen was at dinner at 1800 where he was acting normally. When staff went to put him to bed about 30 minutes prior to arrival they noticed he was altered and not following commands. Per nursing facility documentation he is on Eliquis for DVTs. He has a history of metabolic encephalopathy, also has hepatitis C virus. No known falls or evidence of trauma. On arrival patient is awake but not following commands, some tracking of gaze. Patient not cooperative with NIH score. Picking his arms appears resistance but no cooperative effort and exam. cr elevated at 3 Code stroke activated on patient's arrival, no acute bleed or stroke CT. Discussed with neurology, Dr. Mccracken, not a TPA candidate secondary to Eliquis. Requesting CTA be done prior to admission HIV positive. Patient had several MRI studies, 2 lumbar punctures, and full evaluation including syphilis serologies, which were negative. [facility] he was treated with antibiotics for syphilis and other infections, but nothing came with the work-up except for possible ventriculomegaly. A FORMING ACID DUMPER shunt was discussed, but the doctors did not think that normal pressure hydrocephalus was an issue. Review of Systems: Review of Systems: Unable to obtain due to patient's mental status Past Medical History Cardiovascular: HTN, Hyperlipidemia, Other (DVT) CENTRAL NERVOUS SYSTEM: Other (met enceph) Hepatobiliary: Hep A/B/C (C) Psych: Depression, Other (thrombocythemia) Rheumatologic: Gout Infectious disease: HIV Renal/: Urinary Incontinence Family History Family History: Hypertension Social History Smoke: No ALCOHOL: none Drugs: None Current Problem List Problem List Problems Medical Problems: (1) AMS (altered mental status) Status: Acute (2) HCAP (healthcare-associated pneumonia) Status: Acute Vitals Vitals Vital Signs Date Time Temp Pulse Resp B/P (MAP) Pulse Ox O2 Delivery O2 Flow Rate FiO2 09/02/20 07:59 98.4 73 18 124/87 (99) 97 Room Air 98.4 Physical Exam Physical Exam GENERAL: Well-developed, well-nourished male in no acute distress. more alert watching chiefs pre-game on tv , smiling Does not answer all questions HEENT: Normocephalic, atraumatic, anicteric. Does not open mouth. NECK: Supple, no JVD, no lymphadenopathy. LUNGS: Clear bilaterally. Decreased breath sounds at the bases. HEART: S1, S2. No gallops or murmurs. ABDOMEN: Obese, soft, bowel sounds present, nontender, nondistended. GENITOURINARY: No Calvert in place. DERMATOLOGIC: No generalized rash. NEUROLOGIC: Remains confused PSYCHIATRIC: Calm cooperative MUSCULOSKELETAL: No joint swelling or decrease in range of motion noted. General: Alert, Oriented X3, Cooperative, No acute distress, Other (ENCEPHALOPATHIC) Heart: Regular rate Abdomen: Normal bowel sounds, Soft, No tenderness Extremities: No cyanosis Skin: No breakdown Labs LABS ORDERED: BCULT Procedure Result BLOOD CULTURE Preliminary NO GROWTH AFTER 4 DAYS Laboratory Tests Test 09/02/20 08:00 White Blood Count 6.5 x10^3/uL (4.0-11.0) Red Blood Count 4.35 x10^6/uL (4.30-5.70) Hemoglobin 14.6 g/dL (13.0-17.5) Hematocrit 42.6 % (39.0-53.0) Mean Corpuscular Volume 98 fL (79-100) Mean Corpuscular Hemoglobin 34 pg (25-35) Mean Corpuscular Hemoglobin Concent 34 g/dL (31-37) Red Cell Distribution Width 14.9 % (11.5-14.5) Platelet Count 193 x10^3/uL (140-400) Neutrophils (%) (Auto) 57 % (31-73) Lymphocytes (%) (Auto) 28 % (24-48) Monocytes (%) (Auto) 13 % (0-9) Eosinophils (%) (Auto) 2 % (0-3) Basophils (%) (Auto) 1 % (0-3) Neutrophils # (Auto) 3.7 x10^3/uL (1.8-7.7) Lymphocytes # (Auto) 1.8 x10^3/uL (1.0-4.8) Monocytes # (Auto) 0.8 x10^3/uL (0.0-1.1) Eosinophils # (Auto) 0.1 x10^3/uL (0.0-0.7) Basophils # (Auto) 0.1 x10^3/uL (0.0-0.2) Sodium Level 142 mmol/L (136-145) Potassium Level 3.3 mmol/L (3.5-5.1) Chloride Level 105 mmol/L (98-107) Carbon Dioxide Level 27 mmol/L (21-32) Anion Gap 10 (6-14) Blood Urea Nitrogen 10 mg/dL (8-26) Creatinine 1.0 mg/dL (0.7-1.3) Estimated GFR (Cockcroft-Gault) 90.5 BUN/Creatinine Ratio 10 (6-20) Glucose Level 75 mg/dL (70-99) Calcium Level 8.6 mg/dL (8.5-10.1) Total Bilirubin 0.7 mg/dL (0.2-1.0) Aspartate Amino Transf (AST/SGOT) 53 U/L (15-37) Alanine Aminotransferase (ALT/SGPT) 35 U/L (16-63) Alkaline Phosphatase 76 U/L (46-116) Total Protein 6.7 g/dL (6.4-8.2) Albumin 2.8 g/dL (3.4-5.0) Albumin/Globulin Ratio 0.7 (1.0-1.7) Assessment and Plan Assessmemt and Plan Problems Medical Problems: (1) AMS (altered mental status) Status: Acute (2) HCAP (healthcare-associated pneumonia) Status: Acute Comment Review of Relevant I have reviewed the following items zander (where applicable) has been applied. Labs Laboratory Tests Test 08/31/20 11:55 09/01/20 07:05 09/02/20 08:00 T-Lymphocyte CD4/CD8 Ratio See separate report White Blood Count 6.7 x10^3/uL (4.0-11.0) 6.5 x10^3/uL (4.0-11.0) Red Blood Count 4.34 x10^6/uL (4.30-5.70) 4.35 x10^6/uL (4.30-5.70) Hemoglobin 14.2 g/dL (13.0-17.5) 14.6 g/dL (13.0-17.5) Hematocrit 42.7 % (39.0-53.0) 42.6 % (39.0-53.0) Mean Corpuscular Volume 98 fL (79-100) 98 fL (79-100) Mean Corpuscular Hemoglobin 33 pg (25-35) 34 pg (25-35) Mean Corpuscular Hemoglobin Concent 33 g/dL (31-37) 34 g/dL (31-37) Red Cell Distribution Width 14.7 % (11.5-14.5) 14.9 % (11.5-14.5) Platelet Count 204 x10^3/uL (140-400) 193 x10^3/uL (140-400) Neutrophils (%) (Auto) 52 % (31-73) 57 % (31-73) Lymphocytes (%) (Auto) 33 % (24-48) 28 % (24-48) Monocytes (%) (Auto) 11 % (0-9) 13 % (0-9) Eosinophils (%) (Auto) 2 % (0-3) 2 % (0-3) Basophils (%) (Auto) 2 % (0-3) 1 % (0-3) Neutrophils # (Auto) 3.5 x10^3/uL (1.8-7.7) 3.7 x10^3/uL (1.8-7.7) Lymphocytes # (Auto) 2.2 x10^3/uL (1.0-4.8) 1.8 x10^3/uL (1.0-4.8) Monocytes # (Auto) 0.7 x10^3/uL (0.0-1.1) 0.8 x10^3/uL (0.0-1.1) Eosinophils # (Auto) 0.1 x10^3/uL (0.0-0.7) 0.1 x10^3/uL (0.0-0.7) Basophils # (Auto) 0.1 x10^3/uL (0.0-0.2) 0.1 x10^3/uL (0.0-0.2) Sodium Level 140 mmol/L (136-145) 142 mmol/L (136-145) Potassium Level 3.5 mmol/L (3.5-5.1) 3.3 mmol/L (3.5-5.1) Chloride Level 105 mmol/L (98-107) 105 mmol/L (98-107) Carbon Dioxide Level 27 mmol/L (21-32) 27 mmol/L (21-32) Anion Gap 8 (6-14) 10 (6-14) Blood Urea Nitrogen 13 mg/dL (8-26) 10 mg/dL (8-26) Creatinine 1.2 mg/dL (0.7-1.3) 1.0 mg/dL (0.7-1.3) Estimated GFR (Cockcroft-Gault) 73.3 90.5 Glucose Level 76 mg/dL (70-99) 75 mg/dL (70-99) Calcium Level 9.2 mg/dL (8.5-10.1) 8.6 mg/dL (8.5-10.1) BUN/Creatinine Ratio 10 (6-20) Total Bilirubin 0.7 mg/dL (0.2-1.0) Aspartate Amino Transf (AST/SGOT) 53 U/L (15-37) Alanine Aminotransferase (ALT/SGPT) 35 U/L (16-63) Alkaline Phosphatase 76 U/L (46-116) Total Protein 6.7 g/dL (6.4-8.2) Albumin 2.8 g/dL (3.4-5.0) Albumin/Globulin Ratio 0.7 (1.0-1.7) Laboratory Tests Test 09/02/20 08:00 White Blood Count 6.5 x10^3/uL (4.0-11.0) Red Blood Count 4.35 x10^6/uL (4.30-5.70) Hemoglobin 14.6 g/dL (13.0-17.5) Hematocrit 42.6 % (39.0-53.0) Mean Corpuscular Volume 98 fL (79-100) Mean Corpuscular Hemoglobin 34 pg (25-35) Mean Corpuscular Hemoglobin Concent 34 g/dL (31-37) Red Cell Distribution Width 14.9 % (11.5-14.5) Platelet Count 193 x10^3/uL (140-400) Neutrophils (%) (Auto) 57 % (31-73) Lymphocytes (%) (Auto) 28 % (24-48) Monocytes (%) (Auto) 13 % (0-9) Eosinophils (%) (Auto) 2 % (0-3) Basophils (%) (Auto) 1 % (0-3) Neutrophils # (Auto) 3.7 x10^3/uL (1.8-7.7) Lymphocytes # (Auto) 1.8 x10^3/uL (1.0-4.8) Monocytes # (Auto) 0.8 x10^3/uL (0.0-1.1) Eosinophils # (Auto) 0.1 x10^3/uL (0.0-0.7) Basophils # (Auto) 0.1 x10^3/uL (0.0-0.2) Sodium Level 142 mmol/L (136-145) Potassium Level 3.3 mmol/L (3.5-5.1) Chloride Level 105 mmol/L (98-107) Carbon Dioxide Level 27 mmol/L (21-32) Anion Gap 10 (6-14) Blood Urea Nitrogen 10 mg/dL (8-26) Creatinine 1.0 mg/dL (0.7-1.3) Estimated GFR (Cockcroft-Gault) 90.5 BUN/Creatinine Ratio 10 (6-20) Glucose Level 75 mg/dL (70-99) Calcium Level 8.6 mg/dL (8.5-10.1) Total Bilirubin 0.7 mg/dL (0.2-1.0) Aspartate Amino Transf (AST/SGOT) 53 U/L (15-37) Alanine Aminotransferase (ALT/SGPT) 35 U/L (16-63) Alkaline Phosphatase 76 U/L (46-116) Total Protein 6.7 g/dL (6.4-8.2) Albumin 2.8 g/dL (3.4-5.0) Albumin/Globulin Ratio 0.7 (1.0-1.7) Microbiology 08/29/20 Blood Culture - Preliminary, Resulted NO GROWTH AFTER 3 DAYS Medications Current Medications Sodium Chloride 1,000 ml @ 100 mls/hr Q10H IV Last administered on 08/29/20at 09:08; Start 08/28/20 at 22:15; Stop 08/29/20 at 18:11; Status DC Methylprednisolone Sodium Succinate (SOLU-Medrol 125MG VIAL) 125 mg 1X ONCE IV ; Start 08/28/20 at 23:55; Stop 08/29/20 at 00:12; Status DC Cefepime HCl (Maxipime) 1 gm 1X ONCE IVP Last administered on 08/29/20at 02:45; Start 08/29/20 at 02:30; Stop 08/29/20 at 02:32; Status DC Vancomycin HCl 1.75 gm/Sodium Chloride 500 ml @ 250 mls/hr 1X ONCE IV Last administered on 08/29/20at 02:48; Start 08/29/20 at 02:30; Stop 08/29/20 at 04:29; Status DC Cefepime HCl (Maxipime) 1 gm Q12HR IVP Last administered on 08/31/20at 09:32; Start 08/29/20 at 21:00; Stop 08/31/20 at 19:08; Status DC Sodium Chloride (Normal Saline Flush) 3 ml QSHIFT PRN IV AFTER MEDS AND BLOOD DRAWS; Start 08/29/20 at 14:45 Sodium Chloride 1,000 ml @ 100 mls/hr Q10H IV ; Start 08/29/20 at 14:45; Stop 08/29/20 at 18:11; Status DC Ondansetron HCl (Zofran) 4 mg PRN Q4HRS PRN IV NAUSEA/VOMITING; Start 08/29/20 at 14:45 Acetaminophen (Tylenol Supp) 650 mg PRN Q4HRS PRN [place] TEMP OVER 100.4F OR MILD PAIN; Start 08/29/20 at 14:45 Sodium Monofluorophosphate (Fleet Adult) 133 ml PRN DAILY PRN [place] CONSTIPATION; Start 08/29/20 at 14:45 Albuterol Sulfate (Ventolin Neb Soln) 2.5 mg PRN Q4HRS PRN NEB SHORTNESS OF BREATH; Start 08/29/20 at 14:45 Guaifenesin (Robitussin) 200 mg PRN Q4HRS PRN PO COUGH; Start 08/29/20 at 14:45 Sodium Chloride 1,000 ml @ 100 mls/hr Q10H IV Last administered on 09/01/20at 21:49; Start 08/29/20 at 18:00 Acetaminophen (Tylenol) 650 mg PRN Q6HRS PRN PO MILD PAIN / TEMP > 100.3'F; Start 08/30/20 at 09:30 Enoxaparin Sodium (Lovenox 40mg Syringe) 30 mg Q24H SQ ; Start 08/30/20 at 13:00; Status Cancel Enoxaparin Sodium (Lovenox 40mg Syringe) 40 mg Q24H SQ ; Start 08/30/20 at 14:09; Status Cancel Enoxaparin Sodium (Lovenox 40mg Syringe) 40 mg Q24H SQ Last administered on 08/30/20at 15:17; Start 08/30/20 at 15:00; Stop 08/31/20 at 13:15; Status DC Potassium Chloride/Water 100 ml @ 100 mls/hr Q1H IV Last administered on 08/31/20at 16:49; Start 08/31/20 at 12:00; Stop 08/31/20 at 15:59; Status DC Apixaban (Eliquis) 2.5 mg BID PO Last administered on 09/01/20at 21:45; Start 08/31/20 at 13:00 Info (Anti-Coagulation Monitoring By Pharmacy) 1 each PRN DAILY PRN MC SEE COMMENTS; Start 08/31/20 at 12:30 Cefdinir (Omnicef) 300 mg BID PO Last administered on 09/01/20at 21:45; Start 08/31/20 at 21:00 Active Scripts Active Reported Multi-Vitamin Daily (Multivitamin) 1 Each Tablet 1 Tab PO DAILY 30 Days Tramadol Hcl 50 Mg Tablet 50 Mg PO Q6HRS PRN Tivicay (Dolutegravir Sodium) 50 Mg Tablet 1 Tab PO DAILY 30 Days Micardis (Telmisartan) 40 Mg Tablet 1 Tab PO DAILY Flomax (Tamsulosin Hcl) 0.4 Mg Cap.er.24h 1 Cap PO DAILY Symtuza [phone] mg Tab (Darunavir/Cob/Emtri/Tenof Alaf) 1 Each Tablet 1 Each PO DAILY Colcrys (Colchicine) 0.6 Mg Tablet 1 Tab PO DAILY 30 Days Betamethasone Dipropionate 15 Gm Cream..g. 1 Antoine TP BID Eliquis (Apixaban) 2.5 Mg Tablet 2.5 Mg PO BID Amlodipine Besylate 10 Mg Tablet 10 Mg PO DAILY Vitals/I & O Vital Sign - Last 24 Hours 09/01/20 09/01/20 09/01/20 09/01/20 11:59 15:59 19:00 20:00 Temp 98.0 98.1 98.4 98.0 98.1 98.4 Pulse 64 59 69 Resp 18 18 18 B/P (MAP) 139/89 (106) 136/82 (100) 131/90 (104) Pulse Ox 96 98 96 O2 Delivery Room Air Room Air Room Air Room Air 09/01/20 09/02/20 09/02/20 23:00 03:00 07:59 Temp 98.4 98.0 98.4 98.4 98.0 98.4 Pulse 73 71 73 Resp 18 18 18 B/P (MAP) 146/90 (108) 159/92 (114) 124/87 (99) Pulse Ox 97 98 97 O2 Delivery Room Air Room Air Room Air Intake and Output 09/01/20 09/01/20 09/02/20 15:00 23:00 07:00 Intake Total 237 ml 0 ml Balance 237 ml 0 ml Justicifation of Admission Dx: Justifications for Admission: Justification of Admission Dx: Yes Stroke - Ischemic: Stroke-Ischemic EVE DOWNEY MD Sep 02, 2020 10:51
[2020-09-02] MEDS: APIXABAN 2.5 MG TABLET. PO SCH ×2 (11:07→19:21)
[2020-09-02] MEDS: CEFDINIR 300 MG CAPSULE PO SCH ×2 (11:07→19:21)
[2020-09-02 11:59] VITALS: BP 146/97
[2020-09-02] MEDS: IV 1/2 NORMAL SALINE 1,000 ML IV SCH ×2 (12:00→19:21)
[2020-09-02] MEDS ORDERED: POTASSIUM BICARB 10 MEQ EFFERVESCENT TABLET. FT ONE (13:30)
[2020-09-02] MEDS ORDERED: ELECTROLYTE (NON-ICU) PROTOCOL. MC PRN (13:30)
[2020-09-02] MEDS ORDERED: POTASSIUM BICARB 20 MEQ EFFERVESCENT TABLET. PO SCH (13:30)
[2020-09-02] MEDS ORDERED: POTASSIUM BICARB 20 MEQ EFFERVESCENT TABLET. FT ONE (13:30)
[2020-09-02] MEDS ORDERED: POTASSIUM CHLORIDE 20 MEQ TABLET.ER. PO ONE (14:00)
[2020-09-02 15:59] VITALS: BP 107/85
[2020-09-02 19:00] VITALS: BP 113/79
[2020-09-02] MEDS ORDERED: MAGNESIUM OXIDE 400 MG TABLET PO SCH (21:00)
[2020-09-02] MEDS ORDERED: POTASSIUM & SODIUM PHOSPHATES PACKET. PO SCH (21:00)
[2020-09-02 23:00] VITALS: BP 158/86
[2020-09-03 03:00] VITALS: BP 165/96
[2020-09-03 07:00] VITALS: BP 138/87
[2020-09-03 07:52] LABS: CREATININE 1.1 mg/dL (0.7-1.3); POTASSIUM 3.6 mmol/L (3.5-5.1)
[2020-09-03] MEDS: IV 1/2 NORMAL SALINE 1,000 ML IV SCH (08:41)
[2020-09-03] MEDS: APIXABAN 2.5 MG TABLET. PO SCH (08:41)
[2020-09-03] MEDS: CEFDINIR 300 MG CAPSULE PO SCH (08:41)
--- NOTE | 2020-09-03 10:10 | PDOC ---
Infectious Disease Note Subjective: Subjective Patient remains the same alert ,smiles , does not answer any questions Vital Signs: Vital Signs Vital Signs Date Time Temp Pulse Resp B/P (MAP) Pulse Ox O2 Delivery O2 Flow Rate FiO2 09/03/20 07:00 98.6 83 17 138/87 (104) 98 Room Air 98.6 Physical Exam: PHYSICAL EXAM GENERAL: Well-developed, well-nourished male in no acute distress. smiling Does not answer questions HEENT: Normocephalic, atraumatic, anicteric. Does not open mouth. NECK: Supple, no JVD, no lymphadenopathy. LUNGS: Clear bilaterally. Decreased breath sounds at the bases. HEART: S1, S2. No gallops or murmurs. ABDOMEN: Obese, soft, bowel sounds present, nontender, nondistended. GENITOURINARY: No Calvert in place. DERMATOLOGIC: No generalized rash. NEUROLOGIC: Remains confused PSYCHIATRIC: Calm cooperative MUSCULOSKELETAL: No joint swelling or decrease in range of motion noted. Medications: Inpatient Meds: Current Medications Medications (Trade) Dose Ordered Sig/Mary Start Time Stop Time Status Last Admin Dose Admin Acetaminophen (Tylenol Supp) 650 mg PRN Q4HRS PRN 08/29/20 14:45 Acetaminophen (Tylenol) 650 mg PRN Q6HRS PRN 08/30/20 09:30 Albuterol Sulfate (Ventolin Neb Soln) 2.5 mg PRN Q4HRS PRN 08/29/20 14:45 Apixaban (Eliquis) 2.5 mg BID 08/31/20 13:00 09/03/20 08:41 2.5 MG Cefdinir (Omnicef) 300 mg BID 08/31/20 21:00 09/03/20 08:41 300 MG Cefepime HCl (Maxipime) 1 gm Q12HR 08/29/20 21:00 08/31/20 19:08 DC 08/31/20 09:32 1 GM Enoxaparin Sodium (Lovenox 40mg Syringe) 40 mg Q24H 08/30/20 15:00 08/31/20 13:15 DC 08/30/20 15:17 40 MG Guaifenesin (Robitussin) 200 mg PRN Q4HRS PRN 08/29/20 14:45 Info (Anti-Coagulation Monitoring By Pharmacy) 1 each PRN DAILY PRN 08/31/20 12:30 Info (Non-Icu Electrolyte Protocol) 1 ea CONT PRN PRN 09/02/20 13:30 Magnesium Oxide (Magnesium Oxide) 400 mg BID 09/02/20 21:00 09/04/20 09:01 UNV Methylprednisolone Sodium Succinate (SOLU-Medrol 125MG VIAL) 125 mg 1X ONCE 08/28/20 23:55 08/29/20 00:12 DC Ondansetron HCl (Zofran) 4 mg PRN Q4HRS PRN 08/29/20 14:45 Potassium Bicarbonate (Potassium Effervescent Tablet) 40 meq Q4H 09/02/20 13:30 09/02/20 17:31 UNV Potassium Chloride/Water 100 ml @ 100 mls/hr Q1H 08/31/20 12:00 08/31/20 15:59 DC 08/31/20 16:49 100 MLS/HR Potassium Chloride (Klor-Con) 40 meq 1X ONCE 09/02/20 14:00 09/02/20 14:01 DC 09/02/20 15:11 40 MEQ Potassium Phos/ Sodium Phos (Phos-Nak) 1 pkt BID 09/02/20 21:00 09/03/20 09:01 UNV Sodium Monofluorophosphate (Fleet Adult) 133 ml PRN DAILY PRN 08/29/20 14:45 Sodium Chloride 1,000 ml @ 100 mls/hr Q10H 08/29/20 18:00 09/03/20 08:41 100 MLS/HR Sodium Chloride (Normal Saline Flush) 3 ml QSHIFT PRN 08/29/20 14:45 Vancomycin HCl 1.75 gm/Sodium Chloride 500 ml @ 250 mls/hr 1X ONCE 08/29/20 02:30 08/29/20 04:29 DC 08/29/20 02:48 250 MLS/HR Labs: Lab Laboratory Tests Test 09/02/20 17:24 09/03/20 06:30 Glucose (Fingerstick) 73 mg/dL (70-99) Sodium Level 141 mmol/L (136-145) Potassium Level 3.6 mmol/L (3.5-5.1) Chloride Level 106 mmol/L (98-107) Carbon Dioxide Level 26 mmol/L (21-32) Anion Gap 9 (6-14) Blood Urea Nitrogen 10 mg/dL (8-26) Creatinine 1.1 mg/dL (0.7-1.3) Estimated GFR (Cockcroft-Gault) 81.0 Glucose Level 74 mg/dL (70-99) Calcium Level 9.0 mg/dL (8.5-10.1) Phosphorus Level 3.3 mg/dL (2.6-4.7) Objective: Assessment: Encephalopathy Acute lacunar infarcts on MRI Progressive mental status changes since May 2020 CSF studies negative including HSV, VDRL, JAYNA virus negative Extensive work-up done at [facility] MRI brain May 2020 showed moderate to marked diffuse ventriculomegaly with relative crowding of the sulci 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 Hepatitis C with cirrhosis h/o Rt lower extremity DVT Hypertension Penicillin allergy with hives Plan: Plan of Care Continue [place], team is trying to get it from the [place] facility as not available here at this time per pharmacy d/w RN,will try to get supply for pt Cont Cefdinirfor for a total of 5 days Records from [facility] reviewed Maintain aspiration precaution Prognosis poor ROMMEL PIMENTEL MD Sep 03, 2020 10:10
--- NOTE | 2020-09-03 10:53 | PDOC ---
[employer] PROGRESS NOTE Date of Service DOS: DATE: 09/03/20 TIME: 10:51 Chief Complaint Chief Complaint VTE Prophylaxis Ordered VTE Prophylaxis Devices: Yes VTE Pharmacological Prophylaxi: Yes Assessment/Plan Assessment/Plan Impression: 1. No acute intracranial hemorrhage. 2. Bilateral thalamic age-indeterminate infarcts. , ACUTE PLAN MRI as noted 1- 13 Foci of diffusion signal hyperintensity involving the left blake radiata, left centrum semiovale and right occipital lobe suggests acute lacunar infarcts.,ACUTE There is mild associated cytotoxic edema without mass effect or hemorrhage. Foci susceptibility artifact scattered throughout the brain parenchyma suggests microhemorrhages versus tiny cavernoma. Moderate to advanced generalized cerebral volume loss. Moderate bilateral hippocampal volume loss. 3. Extensive sequelae of chronic microvascular ischemia. 4. Mildly dilated lateral third ventricles, may relate to central brain parenchymal volume loss POSSIBLE normal pressure hydrocephalus 5. Patchy opacities left lung base may represent consolidative process such as pneumonia., aspiration risk 6. WANG 7.Overall prognosis is poor 8. 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 HIV follows up with Dr. 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 status post treatment in [place] the past. 11.Hepatitis C with cirrhosis PLAN ADMIT MRI HEAD NEUROLOGY CONSULT emperic iv antibiotics dvt prophylaxis NEPHROLOGY CONSULT iv fluid support ID CONSULT replace k 09/03: Patient seen and examined at bedside. No acute events overnight, afebrile. ST evaluated patient and recommended dysphagia 1 diet. Will continue cefdinir for total of 5 days. Patient currently stable for discharge to medical [place] with resumption of his HIV medications. >30 minutes was spent managing the discharge this patient. History of Present Illness History of Present Illness Identification/Chief Complaint Chief Complaint AMS, CODE STROKE IN ER History of Present Illness History of Present Illness seen in er with AMS, 64 year old male coming in for [facility] for altered mental status. Per the report he is normally GCS 15 awake and alert. Last time he was seen was at dinner at 1800 where he was acting normally. When staff went to put him to bed about 30 minutes prior to arrival they noticed he was altered and not following commands. Per nursing facility documentation he is on Eliquis for DVTs. He has a history of metabolic encephalopathy, also has hepatitis C virus. No known falls or evidence of trauma. On arrival patient is awake but not following commands, some tracking of gaze. Patient not cooperative with NIH score. Picking his arms appears resistance but no cooperative effort and exam. cr elevated at 3 Code stroke activated on patient's arrival, no acute bleed or stroke CT. Discussed with neurology, Dr. Mccracken, not a TPA candidate secondary to Eliquis. Requesting CTA be done prior to admission HIV positive. Patient had several MRI studies, 2 lumbar punctures, and full evaluation including syphilis serologies, which were negative. at [facility] he was treated with antibiotics for syphilis and other infections, but nothing came with the work-up except for possible ventriculomegaly. A [employer] shunt was discussed, but the doctors did not think that normal pressure hydrocephalus was an issue. Review of Systems: Review of Systems: Unable to obtain due to patient's mental status Past Medical History Cardiovascular: HTN, Hyperlipidemia, Other (DVT) CENTRAL NERVOUS SYSTEM: Other (met enceph) Hepatobiliary: Hep A/B/C (C) Psych: Depression, Other (thrombocythemia) Rheumatologic: Gout Infectious disease: HIV Renal/: Urinary Incontinence Family History Family History: Hypertension Social History Smoke: No ALCOHOL: none Drugs: None Current Problem List Problem List Problems Medical Problems: (1) AMS (altered mental status) Status: Acute (2) HCAP (healthcare-associated pneumonia) Status: Acute Vitals/I&O Vitals/I&O: Vital Signs Date Time Temp Pulse Resp B/P (MAP) Pulse Ox O2 Delivery O2 Flow Rate FiO2 09/03/20 07:00 98.6 83 17 138/87 (104) 98 Room Air 98.6 I & O 09/02/20 09/02/20 09/03/20 15:00 23:00 07:00 Intake Total 120 ml 1000 ml Balance 120 ml 1000 ml Physical Exam Physical Exam: GENERAL: Well-developed, well-nourished male in no acute distress. smiling Does not answer questions HEENT: Normocephalic, atraumatic, anicteric. Does not open mouth. NECK: Supple, no JVD, no lymphadenopathy. LUNGS: Clear bilaterally. Decreased breath sounds at the bases. HEART: S1, S2. No gallops or murmurs. ABDOMEN: Obese, soft, bowel sounds present, nontender, nondistended. GENITOURINARY: No Calvert in place. DERMATOLOGIC: No generalized rash. NEUROLOGIC: Remains confused PSYCHIATRIC: Calm cooperative MUSCULOSKELETAL: No joint swelling or decrease in range of motion noted. General: Alert, Cooperative, No acute distress, Other (ENCEPHALOPATHIC) Heart: Regular rate Abdomen: Normal bowel sounds, Soft, No tenderness Extremities: No cyanosis Skin: No breakdown Labs Labs: Laboratory Tests Test 09/02/20 17:24 09/03/20 06:30 Glucose (Fingerstick) 73 mg/dL (70-99) Sodium Level 141 mmol/L (136-145) Potassium Level 3.6 mmol/L (3.5-5.1) Chloride Level 106 mmol/L (98-107) Carbon Dioxide Level 26 mmol/L (21-32) Anion Gap 9 (6-14) Blood Urea Nitrogen 10 mg/dL (8-26) Creatinine 1.1 mg/dL (0.7-1.3) Estimated GFR (Cockcroft-Gault) 81.0 Glucose Level 74 mg/dL (70-99) Calcium Level 9.0 mg/dL (8.5-10.1) Phosphorus Level 3.3 mg/dL (2.6-4.7) Assessment and Plan Assessmemt and Plan Problems Medical Problems: (1) AMS (altered mental status) Status: Acute (2) HCAP (healthcare-associated pneumonia) Status: Acute Comment Review of Relevant I have reviewed the following items zander (where applicable) has been applied. Medications: Current Medications Medications (Trade) Dose Ordered Sig/Mary Route PRN Reason Start Time Stop Time Status Last Admin Dose Admin Potassium Chloride (Klor-Con) 40 meq 1X ONCE PO 09/02/20 14:00 09/02/20 14:01 DC 09/02/20 15:11 Justifications for Admission General Conditions Hemodynamically stable?: Yes Justification for admission: Patient hemodynamically unstable as indicated by persistent orthostatic vital signs changes ie fall of SBP of 20 mmHg or more OR fall in DBP of 10mmHg or more, 1 to 3 minutes after patient sits/stands from recumbent position. ACUTE CVA, WANG Other Justification GABRIEL JONES MD Sep 03, 2020 10:53
--- NOTE | 2020-09-03 10:57 | PDOC ---
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, [facility] did a full work-up for other causes, including a 2-week penicillin treatment for neurosyphilis as he has a positive RPR, negative CSF VDRL Renal injury Plan Stroke rehabilitation Overall prognosis is poor Ok to return to [facility]dc Resumed Eliquis Risks outweigh the benefits of starting aspirin in combination with Eliquis Subjective None Objective Vital Signs Date Time Temp Pulse Resp B/P (MAP) Pulse Ox O2 Delivery O2 Flow Rate FiO2 09/03/20 07:00 98.6 83 17 138/87 (104) 98 Room Air 98.6 Intake and Output 09/03/20 07:00 Intake Total 1120 ml Balance 1120 ml Intake Oral 120 ml Other 1000 ml # Voids 5 PHYSICAL EXAM Alert. Can tell me his name, smiles, follows a few simple commands PERRL. EOMI. CN: no focal findings. Muscle tone: normal. Muscle strength: 3/5 DTR: 2+ Plantar reflex: Flexor Gait: not examined in bed. Sensory exam: no abnormal findings. No cerebellar signs elicited. Review of Relevant I have reviewed the following items zander (where applicable) has been applied. Labs Laboratory Tests Test 09/02/20 08:00 09/02/20 17:24 09/03/20 06:30 White Blood Count 6.5 x10^3/uL (4.0-11.0) Red Blood Count 4.35 x10^6/uL (4.30-5.70) Hemoglobin 14.6 g/dL (13.0-17.5) Hematocrit 42.6 % (39.0-53.0) Mean Corpuscular Volume 98 fL (79-100) Mean Corpuscular Hemoglobin 34 pg (25-35) Mean Corpuscular Hemoglobin Concent 34 g/dL (31-37) Red Cell Distribution Width 14.9 % (11.5-14.5) Platelet Count 193 x10^3/uL (140-400) Neutrophils (%) (Auto) 57 % (31-73) Lymphocytes (%) (Auto) 28 % (24-48) Monocytes (%) (Auto) 13 % (0-9) Eosinophils (%) (Auto) 2 % (0-3) Basophils (%) (Auto) 1 % (0-3) Neutrophils # (Auto) 3.7 x10^3/uL (1.8-7.7) Lymphocytes # (Auto) 1.8 x10^3/uL (1.0-4.8) Monocytes # (Auto) 0.8 x10^3/uL (0.0-1.1) Eosinophils # (Auto) 0.1 x10^3/uL (0.0-0.7) Basophils # (Auto) 0.1 x10^3/uL (0.0-0.2) Sodium Level 142 mmol/L (136-145) 141 mmol/L (136-145) Potassium Level 3.3 mmol/L (3.5-5.1) 3.6 mmol/L (3.5-5.1) Chloride Level 105 mmol/L (98-107) 106 mmol/L (98-107) Carbon Dioxide Level 27 mmol/L (21-32) 26 mmol/L (21-32) Anion Gap 10 (6-14) 9 (6-14) Blood Urea Nitrogen 10 mg/dL (8-26) 10 mg/dL (8-26) Creatinine 1.0 mg/dL (0.7-1.3) 1.1 mg/dL (0.7-1.3) Estimated GFR (Cockcroft-Gault) 90.5 81.0 BUN/Creatinine Ratio 10 (6-20) Glucose Level 75 mg/dL (70-99) 74 mg/dL (70-99) Calcium Level 8.6 mg/dL (8.5-10.1) 9.0 mg/dL (8.5-10.1) Total Bilirubin 0.7 mg/dL (0.2-1.0) Aspartate Amino Transf (AST/SGOT) 53 U/L (15-37) Alanine Aminotransferase (ALT/SGPT) 35 U/L (16-63) Alkaline Phosphatase 76 U/L (46-116) Total Protein 6.7 g/dL (6.4-8.2) Albumin 2.8 g/dL (3.4-5.0) Albumin/Globulin Ratio 0.7 (1.0-1.7) Glucose (Fingerstick) 73 mg/dL (70-99) Phosphorus Level 3.3 mg/dL (2.6-4.7) Laboratory Tests Test 09/02/20 17:24 09/03/20 06:30 Glucose (Fingerstick) 73 mg/dL (70-99) Sodium Level 141 mmol/L (136-145) Potassium Level 3.6 mmol/L (3.5-5.1) Chloride Level 106 mmol/L (98-107) Carbon Dioxide Level 26 mmol/L (21-32) Anion Gap 9 (6-14) Blood Urea Nitrogen 10 mg/dL (8-26) Creatinine 1.1 mg/dL (0.7-1.3) Estimated GFR (Cockcroft-Gault) 81.0 Glucose Level 74 mg/dL (70-99) Calcium Level 9.0 mg/dL (8.5-10.1) Phosphorus Level 3.3 mg/dL (2.6-4.7) Microbiology 08/29/20 Blood Culture - Preliminary, Resulted NO GROWTH AFTER 4 DAYS Medications Current Medications Sodium Chloride 1,000 ml @ 100 mls/hr Q10H IV Last administered on 08/29/20at 09:08; Start 08/28/20 at 22:15; Stop 08/29/20 at 18:11; Status DC Methylprednisolone Sodium Succinate (SOLU-Medrol 125MG VIAL) 125 mg 1X ONCE IV ; Start 08/28/20 at 23:55; Stop 08/29/20 at 00:12; Status DC Cefepime HCl (Maxipime) 1 gm 1X ONCE IVP Last administered on 08/29/20at 02:45; Start 08/29/20 at 02:30; Stop 08/29/20 at 02:32; Status DC Vancomycin HCl 1.75 gm/Sodium Chloride 500 ml @ 250 mls/hr 1X ONCE IV Last administered on 08/29/20at 02:48; Start 08/29/20 at 02:30; Stop 08/29/20 at 04:29; Status DC Cefepime HCl (Maxipime) 1 gm Q12HR IVP Last administered on 08/31/20at 09:32; Start 08/29/20 at 21:00; Stop 08/31/20 at 19:08; Status DC Sodium Chloride (Normal Saline Flush) 3 ml QSHIFT PRN IV AFTER MEDS AND BLOOD DRAWS; Start 08/29/20 at 14:45 Sodium Chloride 1,000 ml @ 100 mls/hr Q10H IV ; Start 08/29/20 at 14:45; Stop 08/29/20 at 18:11; Status DC Ondansetron HCl (Zofran) 4 mg PRN Q4HRS PRN IV NAUSEA/VOMITING; Start 08/29/20 at 14:45 Acetaminophen (Tylenol Supp) 650 mg PRN Q4HRS PRN FL TEMP OVER 100.4F OR MILD PAIN; Start 08/29/20 at 14:45 Sodium Monofluorophosphate (Fleet Adult) 133 ml PRN DAILY PRN FL CONSTIPATION; Start 08/29/20 at 14:45 Albuterol Sulfate (Ventolin Neb Soln) 2.5 mg PRN Q4HRS PRN NEB SHORTNESS OF BREATH; Start 08/29/20 at 14:45 Guaifenesin (Robitussin) 200 mg PRN Q4HRS PRN PO COUGH; Start 08/29/20 at 14:45 Sodium Chloride 1,000 ml @ 100 mls/hr Q10H IV Last administered on 09/03/20at 08:41; Start 08/29/20 at 18:00 Acetaminophen (Tylenol) 650 mg PRN Q6HRS PRN PO MILD PAIN / TEMP > 100.3'F; Start 08/30/20 at 09:30 Enoxaparin Sodium (Lovenox 40mg Syringe) 30 mg Q24H SQ ; Start 08/30/20 at 13:00; Status Cancel Enoxaparin Sodium (Lovenox 40mg Syringe) 40 mg Q24H SQ ; Start 08/30/20 at 14:09; Status Cancel Enoxaparin Sodium (Lovenox 40mg Syringe) 40 mg Q24H SQ Last administered on 08/30/20at 15:17; Start 08/30/20 at 15:00; Stop 08/31/20 at 13:15; Status DC Potassium Chloride/Water 100 ml @ 100 mls/hr Q1H IV Last administered on 08/31/20at 16:49; Start 08/31/20 at 12:00; Stop 08/31/20 at 15:59; Status DC Apixaban (Eliquis) 2.5 mg BID PO Last administered on 09/03/20at 08:41; Start 08/31/20 at 13:00 Info (Anti-Coagulation Monitoring By Pharmacy) 1 each PRN DAILY PRN MC SEE COMMENTS; Start 08/31/20 at 12:30 Cefdinir (Omnicef) 300 mg BID PO Last administered on 09/03/20at 08:41; Start 08/31/20 at 21:00 Potassium Bicarbonate (Potassium Effervescent Tablet) 40 meq 1X ONCE FT ; Start 09/02/20 at 13:30; Stop 09/02/20 at 13:31; Status UNV Potassium Bicarbonate (Potassium Effervescent Tablet) 40 meq 1X ONCE FT ; Start 09/02/20 at 13:30; Stop 09/02/20 at 13:31; Status UNV Magnesium Oxide (Magnesium Oxide) 400 mg BID PO ; Start 09/02/20 at 21:00; Stop 09/04/20 at 09:01; Status UNV Potassium Phos/ Sodium Phos (Phos-Nak) 1 pkt BID PO ; Start 09/02/20 at 21:00; Stop 09/03/20 at 09:01; Status UNV Potassium Bicarbonate (Potassium Effervescent Tablet) 40 meq Q4H PO ; Start 09/02/20 at 13:30; Stop 09/02/20 at 17:31; Status UNV Info (Non-Icu Electrolyte Protocol) 1 ea CONT PRN PRN MC SEE COMMENTS; Start 09/02/20 at 13:30 Potassium Chloride (Klor-Con) 40 meq 1X ONCE PO Last administered on 09/02/20at 15:11; Start 09/02/20 at 14:00; Stop 09/02/20 at 14:01; Status DC Active Scripts Active Reported Multi-Vitamin Daily (Multivitamin) 1 Each Tablet 1 Tab PO DAILY 30 Days Tramadol Hcl 50 Mg Tablet 50 Mg PO Q6HRS PRN Tivicay (Dolutegravir Sodium) 50 Mg Tablet 1 Tab PO DAILY 30 Days Micardis (Telmisartan) 40 Mg Tablet 1 Tab PO DAILY Flomax (Tamsulosin Hcl) 0.4 Mg Cap.er.24h 1 Cap PO DAILY Symtuza [id number] mg Tab (Darunavir/Cob/Emtri/Tenof Alaf) 1 Each Tablet 1 Each PO DAILY Colcrys (Colchicine) 0.6 Mg Tablet 1 Tab PO DAILY 30 Days Betamethasone Dipropionate 15 Gm Cream..g. 1 Antoine TP BID Eliquis (Apixaban) 2.5 Mg Tablet 2.5 Mg PO BID Amlodipine Besylate 10 Mg Tablet 10 Mg PO DAILY Vitals/I & O Vital Sign - Last 24 Hours 09/02/20 09/02/20 09/02/20 09/02/20 11:59 15:59 19:00 20:00 Temp 97.8 99.2 98.4 97.8 99.2 98.4 Pulse 76 50 80 Resp 18 18 18 B/P (MAP) 146/97 (113) 107/85 (92) 113/79 (90) Pulse Ox 96 97 97 O2 Delivery Room Air Room Air Room Air Room Air 09/02/20 09/03/20 09/03/20 23:00 03:00 07:00 Temp 98.4 98.1 98.6 98.4 98.1 98.6 Pulse 77 82 83 Resp 18 18 17 B/P (MAP) 158/86 (110) 165/96 (119) 138/87 (104) Pulse Ox 96 97 98 O2 Delivery Room Air Room Air Room Air Intake and Output 09/02/20 09/02/20 09/03/20 15:00 23:00 07:00 Intake Total 120 ml 1000 ml Balance 120 ml 1000 ml Images Echocardiogram: LEFT VENTRICLE The left ventricle is normal size. There is borderline to mild concentric left ventricular hypertrophy. The systolic function is low normal. EF 50% There is normal LV segmental wall motion. Transmitral Doppler flow pattern is Grade II- pseudonormal filling dynamics. RIGHT VENTRICLE The right ventricle is normal size. There is normal right ventricular wall thickness. The right ventricular systolic function is normal. ATRIA The left atrium size is normal. The right atrium size is normal. The interatrial septum is intact with no evidence for an atrial septal defect or patent foramen ovale as noted on 2-D or Doppler imaging. AORTIC VALVE The aortic valve is thickened but opens well. Doppler and Color Flow revealed no significant aortic regurgitation. There is no significant aortic valvular stenosis. MITRAL VALVE The mitral valve is normal in structure and function. There is no evidence of mitral valve prolapse. There is no mitral valve stenosis. Doppler and Color Flow revealed no mitral valve regurgitation noted. TRICUSPID VALVE The tricuspid valve is normal in structure and function. Doppler and color-flow analysis was performed. There is no tricuspid valve stenosis. PULMONIC VALVE Doppler and Color Flow revealed no pulmonic valvular regurgitation. There is no pulmonic valvular stenosis. GREAT VESSELS The aortic root is normal in size. The ascending aorta is normal in size. The IVC is normal in size and collapses >50% with inspiration. PERICARDIAL EFFUSION There is no evidence of significant pericardial effusion. Critical Notification Critical Value: No <Conclusion> The systolic function is low normal. EF 50% There is normal LV segmental wall motion. Justicifation of Admission Dx: Justifications for Admission: Justification of Admission Dx: Yes Stroke - Ischemic: Stroke-Ischemic JOSE CARLOS JOHNSON MD Sep 03, 2020 10:57
[2020-09-03 11:00] VITALS: BP 143/93
--- NOTE | 2020-09-03 12:24 | PDOC ---
PULMONARY PROGRESS NOTES DATE: 09/03/20 TIME: 12:23 Subjective Patient remains on room air Afebrile overnight No overnight events Vitals Vital Signs Date Time Temp Pulse Resp B/P (MAP) Pulse Ox O2 Delivery O2 Flow Rate FiO2 09/03/20 07:00 98.6 83 17 138/87 (104) 98 Room Air 98.6 ROS: No Nausea, No Chest Pain, No Abdominal Pain, No Increase Cough General: Alert HEENT: Other Lungs: Clear Cardiovascular: S1, S2 Abdomen: Soft, Non-tender Neuro Exam: Alert Skin: Warm, Dry Labs Laboratory Tests Test 09/02/20 08:00 09/02/20 17:24 09/03/20 06:30 White Blood Count 6.5 x10^3/uL (4.0-11.0) Red Blood Count 4.35 x10^6/uL (4.30-5.70) Hemoglobin 14.6 g/dL (13.0-17.5) Hematocrit 42.6 % (39.0-53.0) Mean Corpuscular Volume 98 fL (79-100) Mean Corpuscular Hemoglobin 34 pg (25-35) Mean Corpuscular Hemoglobin Concent 34 g/dL (31-37) Red Cell Distribution Width 14.9 % (11.5-14.5) Platelet Count 193 x10^3/uL (140-400) Neutrophils (%) (Auto) 57 % (31-73) Lymphocytes (%) (Auto) 28 % (24-48) Monocytes (%) (Auto) 13 % (0-9) Eosinophils (%) (Auto) 2 % (0-3) Basophils (%) (Auto) 1 % (0-3) Neutrophils # (Auto) 3.7 x10^3/uL (1.8-7.7) Lymphocytes # (Auto) 1.8 x10^3/uL (1.0-4.8) Monocytes # (Auto) 0.8 x10^3/uL (0.0-1.1) Eosinophils # (Auto) 0.1 x10^3/uL (0.0-0.7) Basophils # (Auto) 0.1 x10^3/uL (0.0-0.2) Sodium Level 142 mmol/L (136-145) 141 mmol/L (136-145) Potassium Level 3.3 mmol/L (3.5-5.1) 3.6 mmol/L (3.5-5.1) Chloride Level 105 mmol/L (98-107) 106 mmol/L (98-107) Carbon Dioxide Level 27 mmol/L (21-32) 26 mmol/L (21-32) Anion Gap 10 (6-14) 9 (6-14) Blood Urea Nitrogen 10 mg/dL (8-26) 10 mg/dL (8-26) Creatinine 1.0 mg/dL (0.7-1.3) 1.1 mg/dL (0.7-1.3) Estimated GFR (Cockcroft-Gault) 90.5 81.0 BUN/Creatinine Ratio 10 (6-20) Glucose Level 75 mg/dL (70-99) 74 mg/dL (70-99) Calcium Level 8.6 mg/dL (8.5-10.1) 9.0 mg/dL (8.5-10.1) Total Bilirubin 0.7 mg/dL (0.2-1.0) Aspartate Amino Transf (AST/SGOT) 53 U/L (15-37) Alanine Aminotransferase (ALT/SGPT) 35 U/L (16-63) Alkaline Phosphatase 76 U/L (46-116) Total Protein 6.7 g/dL (6.4-8.2) Albumin 2.8 g/dL (3.4-5.0) Albumin/Globulin Ratio 0.7 (1.0-1.7) Glucose (Fingerstick) 73 mg/dL (70-99) Phosphorus Level 3.3 mg/dL (2.6-4.7) Laboratory Tests Test 09/02/20 17:24 09/03/20 06:30 Glucose (Fingerstick) 73 mg/dL (70-99) Sodium Level 141 mmol/L (136-145) Potassium Level 3.6 mmol/L (3.5-5.1) Chloride Level 106 mmol/L (98-107) Carbon Dioxide Level 26 mmol/L (21-32) Anion Gap 9 (6-14) Blood Urea Nitrogen 10 mg/dL (8-26) Creatinine 1.1 mg/dL (0.7-1.3) Estimated GFR (Cockcroft-Gault) 81.0 Glucose Level 74 mg/dL (70-99) Calcium Level 9.0 mg/dL (8.5-10.1) Phosphorus Level 3.3 mg/dL (2.6-4.7) Medications Active Scripts Medications Dose Route/Sig Max Daily Dose Days Date Category Multi-Vitamin Daily (Multivitamin) 1 Each Tablet 1 Tab PO DAILY 30 08/29/20 Reported Tramadol Hcl 50 Mg Tablet 50 Mg PO Q6HRS PRN 08/29/20 Reported Tivicay (Dolutegravir Sodium) 50 Mg Tablet 1 Tab PO DAILY 30 08/29/20 Reported Micardis (Telmisartan) 40 Mg Tablet 1 Tab PO DAILY 08/29/20 Reported Flomax (Tamsulosin Hcl) 0.4 Mg Cap.er.24h 1 Cap PO DAILY 08/29/20 Reported Symtuza [phone] mg Tab (Darunavir/Cob/Emtri/Tenof Alaf) 1 Each Tablet 1 Each PO DAILY 08/29/20 Reported Colcrys (Colchicine) 0.6 Mg Tablet 1 Tab PO DAILY 30 08/29/20 Reported Betamethasone Dipropionate 15 Gm Cream..g. 1 Antoine TP BID 08/29/20 Reported Eliquis (Apixaban) 2.5 Mg Tablet 2.5 Mg PO BID 08/29/20 Reported Amlodipine Besylate 10 Mg Tablet 10 Mg PO DAILY 08/29/20 Reported Comments CXR IMPRESSION: Patchy opacities left lung base may represent consolidative process such as pneumonia. echo The systolic function is low normal. EF 50% There is normal LV segmental wall motion. Impression . IMPRESSION: 1. Abnormal x-ray compatible with aspiration pneumonia. 2. Cerebrovascular accident per Neurology. 3. History of human immunodeficiency virus positive. 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 5. Renal insufficiency. 6. Hypertension. 7. obesity ?honorio Plan . Recommendations: It is stable from a pulmonary standpoint, remains on room air Continue antibiotics per infectious disease recommendation, on p.o. cefdinir Follow neurology recommendations Echocardiogram reviewed MRI showed:Left blake radiata, left centrum semiovale and right occipital lobe acute lacunar infarcts Carotid ultrasound showed:Atherosclerosis of the cervical ICAs with velocities consistent with less than 50 percent stenosis. Physical therapy/Occupational Therapy/speech therapy DVT/GI prophylaxis Discussed with RN Patient remains stable from a pulmonary respiratory standpoint we will sign off at this time please call with any questions or concerns thank you ANGIE SANDY MD Sep 03, 2020 12:24
--- NOTE | 2020-09-03 13:53 | NUR ---
GAL following for discharge planning. Spoke with RN and reviewed chart. SW phoned and faxed updated clinicals to [facility]. SW awaiting discharge orders. Pt possible discharge back to [facility] today, 09/03. GAL following. Addendum: 09/03/20 at 1620 by SARA SANTO Pt to discharge today per Dr. Masterson. Spoke with Areli from [facility] and arranged for stretcher transportation at 1730. RN to call report. Clinicals ready to be sent with pt. Discharge orders to be faxed to [phone]. Addendum: 09/03/20 at 1629 by SARA SANTO discharged orders faxed. No further SW needs at this time.
[2020-09-03 15:00] VITALS: BP 164/66
[2020-09-03] MEDS ORDERED: CEFD300C PO (16:23)
--- NOTE | 2020-09-03 16:24 | SNU/HH DC ---
DISCHARGE ORDERS DISCHARGE INFORMATION: DISCHARGE DATE: Sep 03, 2020 FINAL DIAGNOSIS Problems Medical Problems: (1) AMS (altered mental status) Status: Acute (2) HCAP (healthcare-associated pneumonia) Status: Acute CONDITION ON DISCHARGE: Stable CODE STATUS: Code Status: Full NURSING HOME: SNF STAY <30 DAYS: Yes POST DISCHARGE ORDERS: DIET AFTER DISCHARGE: Cardiac TREATMENT/EQUIPMENT ORDERS: Physical Therapy For: Evalulation/Treatment Speech Language Pathology For: Evaluation/Treatment DISCHARGE MEDICATIONS: Home Meds Active Scripts Cefdinir (CEFDINIR) 300 Mg Capsule, 300 MG PO BID for PNA for 5 Days, #10 CAP Prov:GABRIEL JONES MD 09/03/20 Reported Medications Multivitamin (MULTI-VITAMIN DAILY) 1 Each Tablet, 1 TAB PO DAILY for supp for 30 Days, #30 TAB 0 Refills 08/29/20 Tramadol Hcl (TRAMADOL HCL) 50 Mg Tablet, 50 MG PO Q6HRS PRN for PAIN, TAB 08/29/20 Dolutegravir Sodium (TIVICAY) 50 Mg Tablet, 1 TAB PO DAILY for hiv for 30 Days, #30 TAB 0 Refills 08/29/20 Telmisartan (MICARDIS) 40 Mg Tablet, 1 TAB PO DAILY for htn, #30 TAB 5 Refills 08/29/20 Tamsulosin Hcl (FLOMAX) 0.4 Mg Cap.er.24h, 1 CAP PO DAILY for freq, #30 CAP 11 Refills 08/29/20 Darunavir/Cob/Emtri/Tenof Alaf (Symtuza [id number] mg Tab) 1 Each Tablet, 1 EACH PO DAILY for hiv, TAB 08/29/20 Colchicine (COLCRYS) 0.6 Mg Tablet, 1 TAB PO DAILY for gout pain for 30 Days, #30 TAB 0 Refills 08/29/20 Betamethasone Dipropionate (BETAMETHASONE DIPROPIONATE) 15 Gm Cream..g., 1 LILLIAN TP BID for dermatosis, #15 GM 3 Refills 08/29/20 Apixaban (ELIQUIS) 2.5 Mg Tablet, 2.5 MG PO BID for dvt, TAB 08/29/20 Amlodipine Besylate (AMLODIPINE BESYLATE) 10 Mg Tablet, 10 MG PO DAILY for bp, TAB 08/29/20 GABRIEL JONES MD Sep 03, 2020 16:24
--- NOTE | 2020-09-03 16:40 | PDOC3 ---
Discharge Summary Visit Information Date of Admission: Aug 29, 2020 Date of Discharge: Sep 03, 2020 Final Diagnosis Problems Medical Problems: (1) AMS (altered mental status) Status: Acute (2) HCAP (healthcare-associated pneumonia) Status: Acute Brief Hospital Course Allergies Allergies Coded Allergies Type Severity Reaction Last Updated Verified Penicillins Allergy Intermediate 08/31/20 Yes hydrocodone Allergy Intermediate 08/31/20 Yes Vital Signs Vital Signs Date Time Temp Pulse Resp B/P (MAP) Pulse Ox O2 Delivery O2 Flow Rate FiO2 09/03/20 15:00 99.5 63 18 164/66 (98) 97 Room Air 99.5 Lab Results Laboratory Tests Test 09/02/20 08:00 09/02/20 17:24 09/03/20 06:30 White Blood Count 6.5 x10^3/uL (4.0-11.0) Red Blood Count 4.35 x10^6/uL (4.30-5.70) Hemoglobin 14.6 g/dL (13.0-17.5) Hematocrit 42.6 % (39.0-53.0) Mean Corpuscular Volume 98 fL (79-100) Mean Corpuscular Hemoglobin 34 pg (25-35) Mean Corpuscular Hemoglobin Concent 34 g/dL (31-37) Red Cell Distribution Width 14.9 % (11.5-14.5) Platelet Count 193 x10^3/uL (140-400) Neutrophils (%) (Auto) 57 % (31-73) Lymphocytes (%) (Auto) 28 % (24-48) Monocytes (%) (Auto) 13 % (0-9) Eosinophils (%) (Auto) 2 % (0-3) Basophils (%) (Auto) 1 % (0-3) Neutrophils # (Auto) 3.7 x10^3/uL (1.8-7.7) Lymphocytes # (Auto) 1.8 x10^3/uL (1.0-4.8) Monocytes # (Auto) 0.8 x10^3/uL (0.0-1.1) Eosinophils # (Auto) 0.1 x10^3/uL (0.0-0.7) Basophils # (Auto) 0.1 x10^3/uL (0.0-0.2) Sodium Level 142 mmol/L (136-145) 141 mmol/L (136-145) Potassium Level 3.3 mmol/L (3.5-5.1) 3.6 mmol/L (3.5-5.1) Chloride Level 105 mmol/L (98-107) 106 mmol/L (98-107) Carbon Dioxide Level 27 mmol/L (21-32) 26 mmol/L (21-32) Anion Gap 10 (6-14) 9 (6-14) Blood Urea Nitrogen 10 mg/dL (8-26) 10 mg/dL (8-26) Creatinine 1.0 mg/dL (0.7-1.3) 1.1 mg/dL (0.7-1.3) Estimated GFR (Cockcroft-Gault) 90.5 81.0 BUN/Creatinine Ratio 10 (6-20) Glucose Level 75 mg/dL (70-99) 74 mg/dL (70-99) Calcium Level 8.6 mg/dL (8.5-10.1) 9.0 mg/dL (8.5-10.1) Total Bilirubin 0.7 mg/dL (0.2-1.0) Aspartate Amino Transf (AST/SGOT) 53 U/L (15-37) Alanine Aminotransferase (ALT/SGPT) 35 U/L (16-63) Alkaline Phosphatase 76 U/L (46-116) Total Protein 6.7 g/dL (6.4-8.2) Albumin 2.8 g/dL (3.4-5.0) Albumin/Globulin Ratio 0.7 (1.0-1.7) Glucose (Fingerstick) 73 mg/dL (70-99) Phosphorus Level 3.3 mg/dL (2.6-4.7) Laboratory Tests Test 09/02/20 17:24 09/03/20 06:30 Glucose (Fingerstick) 73 mg/dL (70-99) Sodium Level 141 mmol/L (136-145) Potassium Level 3.6 mmol/L (3.5-5.1) Chloride Level 106 mmol/L (98-107) Carbon Dioxide Level 26 mmol/L (21-32) Anion Gap 9 (6-14) Blood Urea Nitrogen 10 mg/dL (8-26) Creatinine 1.1 mg/dL (0.7-1.3) Estimated GFR (Cockcroft-Gault) 81.0 Glucose Level 74 mg/dL (70-99) Calcium Level 9.0 mg/dL (8.5-10.1) Phosphorus Level 3.3 mg/dL (2.6-4.7) Brief Hospital Course Mr. Ramírez is a 64 old male who presented with left blake radiata, left centrum semiovale and right occipital lobe acute lacunar infarcts. Consultation placed to neurology. He had MRI that showed foci of diffusion signal hyperintensity involving the left blake radiata, left centrum semiovale and right occipital lobe suggests acute lacunar infarcts. There is mild associated cytotoxic edema without mass effect or hemorrhage. He had negative EEG. Patient is also HIV positive, and known to have progressive mental status changes since May 2020. Progressive mental status changes since May 2020. He had extensive work-up performed at [facility] with reported CSF studies negative including HSV, VDRL, JAYNA virus negative. MRI brain May 2020 showed moderate to marked diffuse ventriculomegaly with relative crowding of the sulci most consistent with communicating hydrocephalus. 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 For his history of HIV, follows up with Dr. Gabriela Sanchez on Symtuza and tivicay. 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 Consultations placed to ID and pulmonology. Patient was treated with antibiotics and stroke rehabilitation. He was stable for discharge to his [facility]. Discharge Information Condition at Discharge: Improved Follow Up: Weeks Disposition/Orders: D/C to Another Facility Scheduled Amlodipine Besylate (Amlodipine Besylate) 10 Mg Tablet, 10 MG PO DAILY for bp, (Reported) Entered as Reported by: LEIDY COTTER on 08/29/20737 Last Action: New Order on 08/29/20737 by LEIDY COTTER Apixaban (Eliquis) 2.5 Mg Tablet, 2.5 MG PO BID for dvt, (Reported) Entered as Reported by: LEIDY COTTER on 08/29/20737 Last Action: New Order on 08/29/20737 by LEIDY COTTER Betamethasone Dipropionate (Betamethasone Dipropionate) 15 Gm Cream..g., 1 LILLIAN TP BID for dermatosis, #15 Ref 3 (Reported) Entered as Reported by: LEIDY COTTER on 08/29/20737 Last Action: New Order on 08/29/20737 by LEIDY COTTER Cefdinir (Cefdinir) 300 Mg Capsule, 300 MG PO BID for PNA for 5 Days, #10 Prescribed by: GABRIEL JONES MD on 09/03/201622 Colchicine (Colcrys) 0.6 Mg Tablet, 1 TAB PO DAILY for gout pain for 30 Days, #30 Ref 0 (Reported) Entered as Reported by: LEIDY COTTER on 08/29/20737 Last Action: New Order on 08/29/20737 by LEIDY COTTER Darunavir/Cob/Emtri/Tenof Alaf (Symtuza [id number] mg Tab) 1 Each Tablet, 1 EACH PO DAILY for hiv, (Reported) Entered as Reported by: LEIDY COTTER on 08/29/20737 Last Action: New Order on 08/29/20737 by LEIDY COTTER Dolutegravir Sodium (Tivicay) 50 Mg Tablet, 1 TAB PO DAILY for hiv for 30 Days, #30 Ref 0 (Reported) Entered as Reported by: LEIDY COTTER on 08/29/20737 Last Action: New Order on 08/29/20737 by LEIDY COTTER Multivitamin (Multi-Vitamin Daily) 1 Each Tablet, 1 TAB PO DAILY for supp for 30 Days, #30 Ref 0 (Reported) Entered as Reported by: LEIDY COTTER on 08/29/20737 Last Action: New Order on 08/29/20737 by LEIDY COTTER Tamsulosin Hcl (Flomax) 0.4 Mg Cap.er.24h, 1 CAP PO DAILY for freq, #30 Ref 11 (Reported) Entered as Reported by: LEIDY COTTER on 08/29/20737 Last Action: New Order on 08/29/20737 by LEIDY COTTER Telmisartan (Micardis) 40 Mg Tablet, 1 TAB PO DAILY for htn, #30 Ref 5 (Reported) Entered as Reported by: LEIDY COTTER on 08/29/20737 Last Action: New Order on 08/29/20737 by LEIDY COTTER Scheduled PRN Tramadol Hcl (Tramadol Hcl) 50 Mg Tablet, 50 MG PO Q6HRS PRN for PAIN, (Reported) Entered as Reported by: LEIDY COTTER on 08/29/20737 Last Action: New Order on 08/29/20737 by LEIDY COTTER Justicifation of Admission Dx: Justifications for Admission: Justification of Admission Dx: Yes Stroke - Ischemic: Stroke-Ischemic GABRIEL JONES MD Sep 03, 2020 16:40
== END 2020-09-03 17:30 | DRG 64 ==
LOC: ER 21:39 → ED HOLD 08-29 01:59 → 5 NORTH 08-29 05:06
PROVIDERS: ADMIT Internal Medicine; ATTEND Internal Medicine
DX: I63.81 Other cerebral infarction due to occlusion or stenosis of small artery (principal); J69.0 Pneumonitis due to inhalation of food and vomit; G93.6 Cerebral edema; G93.41 Metabolic encephalopathy; N17.9 Acute kidney failure, unspecified; E87.0 Hyperosmolality and hypernatremia; E87.1 Hypo-osmolality and hyponatremia; A52.3 Neurosyphilis, unspecified; G91.0 Communicating hydrocephalus; I82.411 Acute embolism and thrombosis of right femoral vein; I82.451 Acute embolism and thrombosis of right peroneal vein; I82.431 Acute embolism and thrombosis of right popliteal vein; E87.6 Hypokalemia; B19.20 Unspecified viral hepatitis C without hepatic coma; K74.60 Unspecified cirrhosis of liver; N40.0 Benign prostatic hyperplasia without lower urinary tract symptoms; F03.90 Unspecified dementia, unspecified severity, without behavioral disturbance, psychotic disturbance, mood disturbance, and anxiety; F02.80 Dementia in other diseases classified elsewhere, unspecified severity, without behavioral disturbance, psychotic disturbance, mood disturbance, and anxiety; F32.9 Major depressive disorder, single episode, unspecified; R40.2410 Glasgow coma scale score 13-15, unspecified time; I10 Essential (primary) hypertension; E78.5 Hyperlipidemia, unspecified; M10.9 Gout, unspecified; D75.89 Other specified diseases of blood and blood-forming organs; G93.89 Other specified disorders of brain; D32.9 Benign neoplasm of meninges, unspecified; E86.9 Volume depletion, unspecified; R32 Unspecified urinary incontinence; I65.23 Occlusion and stenosis of bilateral carotid arteries; E66.9 Obesity, unspecified; G47.33 Obstructive sleep apnea (adult) (pediatric); K80.20 Calculus of gallbladder without cholecystitis without obstruction; Z68.34 Body mass index [BMI] 34.0-34.9, adult; Z86.718 Personal history of other venous thrombosis and embolism; Z90.81 Acquired absence of spleen; Z88.0 Allergy status to penicillin; Z88.8 Allergy status to other drugs, medicaments and biological substances; Z79.01 Long term (current) use of anticoagulants; Z82.49 Family history of ischemic heart disease and other diseases of the circulatory system
CPT/HCPCS: 36415; 36600; 70450; 70553; 71045; 80048; 80053; 80061; 80307; 81001; 82140; 82805; 82962; 84100; 84443; 84484; 85025; 85610; 85730; 86360; 86592; 87040; 87899; 93005; 93306; 93880; 95816; 96365; 96366; 96375; J0692; J1650; J3370; J3480; J3490; J7030; J7040; 92526-GN; 92610-GN; 99285-25; G0378